=== PATIENT | male | born 1970 | race Caucasian/White ===

== ENCOUNTER 2016-08-16 07:52 | Emergency (ER) | payer MEDICAID ==
[2016-08-16] MEDS ORDERED: Aspirin 81 MG Tab.Chew PO ONE (08:13)
[2016-08-16] MEDS ORDERED: Metoclopramide 10 MG/2 ML SDV IVPUSH ONE (08:15)
[2016-08-16] MEDS ORDERED: Sodium Chloride 0.9% 1,000 ML IV SCH (08:15)
[2016-08-16] MEDS ORDERED: HYDROmorphone 0.5 MG/0.5 ML Syringe IVPUSH ONE (08:15)
--- NOTE | 2016-08-16 08:18 | EDM.PDOC ---
ED HPI GENERAL MEDICAL PROBLEM - General Chief Complaint: Cardiovascular Problem Stated Complaint: CHEST TIGHTNESS Time Seen by Provider: 08/16/16 08:02 Source of Information: Reports: Patient History Limitations: Reports: No Limitations - History of Present Illness INITIAL COMMENTS - FREE TEXT/NARRATIVE: 45-year-old male presents the ED with development of central chest discomfort almost mid sternum that does not radiate through to his back or into his neck. States he awoke around 0400 hours with mild discomfort in this area but was able to go back to sleep. Upon awakening about 0700 hours the pain had intensified significantly in this area. It has not let up over the last hour and a half. Feels mildly short of breath with this. Patient has a history of multiple bilateral pulmonary emboli and remains on Coumadin 5 mg 5 days a week and 2.5 mg the other days. He has not missed any of his Coumadin. 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 This was felt to be the cause of his PEs in the past. He has had a an angiogram about a year and half ago which showed one vessel with 45% occlusion he did not require any stenting. Does have gastroesophageal reflux disease well controlled with omeprazole once daily. No recent problems with severe reflux area . No associated feeling of need to burp or belch. Onset: Today Onset Date: 08/16/16 Onset Time: 04:00 Duration: Hour(s):, Getting Worse Location: Reports: Chest (Central chest midsternum pressure discomfort. No sharp and stabbing pain.) Quality: Reports: Ache, Pressure Severity: Moderate (Rates his pain 4-5/10.) Improves with: Reports: None Worsens with: Reports: None Context: Denies: Activity, Exercise, Lifting, Sick Contact, Trauma, Other ( First noted when he was sleeping.) Associated Symptoms: Reports: Chest Pain, Cough, Nausea/Vomiting. 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: Reports: Other (see below) (Is not taking any of his usual medications this morning.) Mid-Sternal Chest Pain Score (Numeric/FACES): 5 - Related Data Allergies Allergy/AdvReac Type Severity Reaction Status Date / Time No Known Allergies Allergy Verified 08/16/16 08:06 Home Meds: Home Meds Omeprazole [Prilosec] 20 mg PO DAILY 10/02/14 [History] Carvedilol 6.25 mg PO DAILY 08/16/16 [History] Dicyclomine [Bentyl] 20 mg PO Q6H PRN #12 tab 08/16/16 [Rx] Furosemide [Lasix] 20 mg PO DAILY 08/16/16 [History] Furosemide [Lasix] 40 mg PO DAILY #30 tablet 08/16/16 [Rx] Levothyroxine 25 mcg PO DAILY 08/16/16 [History] Lisinopril 10 mg PO DAILY 08/16/16 [History] Warfarin [Coumadin] 2.5 mg PO SUTUTHSA 08/16/16 [History] Warfarin [Coumadin] 5 mg PO MOWEFR 08/16/16 [History] Past Medical History Cardiovascular History: Reports: Blood Clots/VTE/DVT, Hypertension, [place] ( Suffered a myocardial infarction at the time of his massive pulmonary embolism nearly 2 years ago. Ejection fraction has remained around 40%. Last echo was 6 months ago. Angiogram was also done at that time revealing one vessel with 45% occlusion. No stents placed) Respiratory History: Reports: Other (See Below) (Bilateral pulmonary emboli in the past.) Gastrointestinal History: Reports: GERD, Hiatal Hernia Endocrine/Metabolic History: Reports: Hypothyroidism (On levothyroxin.) Other Endocrine/Metabolic History: pre diabetic Hematologic History: Reports: Other (See Below) (DVTs with pulmonary embolism about 15 months ago.) Social & Family History - Tobacco Use Smoking Status *Q: Never Smoker Second Hand Smoke Exposure: No - Recreational Drug Use Recreational Drug Use: No - Living Situation & Occupation Living situation: Reports: Occupation: Employed ED ROS GENERAL - Review of Systems Review Of Systems: See Below Constitutional: Denies: Fever, Chills, Malaise, Weakness, Fatigue, Decreased Appetite, Weight Loss HEENT: Reports: No Symptoms Respiratory: Reports: Shortness of Breath, Cough (Preps a slight feeling of shortness of breath). Denies: Wheezing, Pleuritic Chest Pain, Sputum ( chronic mild cough.), Hemoptysis, Other Cardiovascular: Reports: Chest Pain (See history of present illness), Blood Pressure Problem ( hypertension well controlled with medication) Endocrine: Reports: No Symptoms GI/Abdominal: Reports: No Symptoms. Denies: Abdominal Pain, Anorexia : Reports: No Symptoms Musculoskeletal: Reports: No Symptoms Skin: Reports: No Symptoms Neurological: Reports: No Symptoms Psychiatric: Reports: No Symptoms Hematologic/Lymphatic: Reports: No Symptoms Immunologic: Reports: No Symptoms ED EXAM, GENERAL - Physical Exam Exam: See Below Exam Limited By: No Limitations General Appearance: Alert, WD/WN, Anxious (Mildly anxious.), Mild Distress Eye Exam: Bilateral Eye: Normal Inspection Neck: Normal Inspection, Supple, Non-Tender, Full Range of Motion. No: Carotid Bruit, Lymphadenopathy (L), Lymphadenopathy (R) Respiratory/Chest: No Respiratory Distress, Lungs Clear, Normal Breath Sounds, No Accessory Muscle Use, Other (Mildly tender anterior chest bilaterally. Compressing the third and fourth ribs bilaterally causes pain in his midsternal area.). No: Respiratory Distress Cardiovascular: Normal Peripheral Pulses, Regular Rate, Rhythm, No Edema, No Gallop, No Murmur Peripheral Pulses: 1+: Posterior Tibial (L), Posterior Tibial (R), Dorsalis Pedis (L), Dorsalis Pedis (R) GI/Abdominal: Normal Bowel Sounds, Soft, Non-Tender, No Organomegaly, No Distention, No Abnormal Bruit, No Mass Back Exam: Normal Inspection, Full Range of Motion, Other (Has a 1.5 cm lipoma mid back primarily just to the right of the thoracic). No: CVA Tenderness (L), CVA Tenderness (R) Neurological: Alert, Oriented ( the vertebra.), CN II-XII Intact, Normal Cognition, Normal Gait Psychiatric: Normal Affect, Normal Mood Skin Exam: Warm, Dry, Intact, Normal Color, No Rash EKG INTERPRETATION EKG Date: 08/16/16 Time: 08:00 Rhythm: NSR Rate (beats/min): 70 [place]: normal P-wave: present QRS: other (Early R wave transition. Decreased voltage limb leads.) ST-T: other (Symmetrically peaked T waves in the 2 and V3.) QT: prolonged (Mildly prolonged.) EKG Interpretation Comments: Essentially normal ECG certainly no signs of ischemia evident. Course - Vital Signs Last Recorded V/S: Last Vital Signs Temp 36.7 C 08/16/16 07:55 Pulse 72 08/16/16 07:55 Resp 18 08/16/16 07:55 BP 169/109 H 08/16/16 07:55 Pulse Ox 100 08/16/16 07:55 - Orders/Labs/Meds Orders: Active Orders 24 hr Category Date Time Status EKG Documentation Completion [RC] STAT Care 08/16/16 08:13 Active Chest 1V Frontal [CR] Stat Exams 08/16/16 08:13 Taken Sodium Chloride 0.9% [Normal Saline] 1,000 ml Med 08/16/16 08:15 Active IV ASDIRECTED Medication Orders Sodium Chloride (Normal Saline) 1,000 mls @ 125 mls/hr IV ASDIRECTED MATT Last Admin: 08/16/16 08:00 Dose: 125 mls/hr Labs: Laboratory Tests 08/16/16 08/16/16 08/16/16 Range/Units 08:03 08:03 08:03 WBC 6.06 (4.23-9.07) K/mm3 RBC 5.12 (4.63-6.08) M/mm3 Hgb 10.1 L (13.7-17.5) gm/L Hct 34.9 L (40.1-51.0) % MCV 68.2 L (79.0-92.2) fl MCH 19.7 L (25.7-32.2) pg MCHC 28.9 L (32.2-35.5) g/dl RDW Std Deviation 44.0 H (35.1-43.9) fL Plt Count 375 H (163-337) K/mm3 MPV 10.7 (9.4-12.3) fl Neutrophils % (Manual) 54 (40-60) % Band Neutrophils % 0 (0-10) % Lymphocytes % (Manual) 25 (20-40) % Atypical Lymphs % 0 % Monocytes % (Manual) 8 (2-10) % Eosinophils % (Manual) 10 H (0.8-7.0) % Basophils % (Manual) 3 H (0.2-1.2) Platelet Estimate Adequate Hypochromasia 2+ moderate Poikilocytosis 2+ moderate RBC Morph Comment Not Reportable PT 14.4 H (8.0-13.0) SECONDS INR 1.30 D-Dimer, Quantitative (0.19-0.59) mg/L Sodium 144 (136-145) mEq/L Potassium 3.7 (3.5-5.1) mEq/L Chloride 108 H (98-107) mEq/L Carbon Dioxide 29 (21-32) mEq/L Anion Gap 10.7 (5-15) BUN 14 (7-18) mg/dL Creatinine 1.2 (0.7-1.3) mg/dL Est Cr Clr Drug Dosing 89.43 mL/min Estimated GFR (MDRD) > 60 (>60) mL/min BUN/Creatinine Ratio 11.7 L (14-18) Glucose 113 H (74-106) mg/dL Calcium 8.6 (8.5-10.1) mg/dL Magnesium (1.8-2.4) mg/dl Iron (65-175) ug/dL TIBC (100-400) ug/dL % Saturation (20-55) % Transferrin (202-364) mg/dL Total Bilirubin 0.4 (0.2-1.0) mg/dL AST 13 L (15-37) U/L ALT 21 (16-63) U/L Alkaline Phosphatase 70 (46-116) U/L Lactate Dehydrogenase 175 (85-227) U/L CK-MB (CK-2) < 0.5 (0-3.6) ng/ml Troponin I 0.041 (0.00-0.056) ng/mL C-Reactive Protein 1.2 H* (<1.0) mg/dL B-Natriuretic Peptide (0-100) pg/mL Total Protein 7.1 (6.4-8.2) g/dl Albumin 3.3 L (3.4-5.0) g/dl Globulin 3.8 gm/dL Albumin/Globulin Ratio 0.9 L (1-2) 08/16/16 08/16/16 08/16/16 Range/Units 08:03 08:03 08:03 WBC (4.23-9.07) K/mm3 RBC (4.63-6.08) M/mm3 Hgb (13.7-17.5) gm/L Hct (40.1-51.0) % MCV (79.0-92.2) fl MCH (25.7-32.2) pg MCHC (32.2-35.5) g/dl RDW Std Deviation (35.1-43.9) fL Plt Count (163-337) K/mm3 MPV (9.4-12.3) fl Neutrophils % (Manual) (40-60) % Band Neutrophils % (0-10) % Lymphocytes % (Manual) (20-40) % Atypical Lymphs % % Monocytes % (Manual) (2-10) % Eosinophils % (Manual) (0.8-7.0) % Basophils % (Manual) (0.2-1.2) Platelet Estimate Hypochromasia Poikilocytosis RBC Morph Comment PT (8.0-13.0) SECONDS INR D-Dimer, Quantitative < 0.19 L (0.19-0.59) mg/L Sodium (136-145) mEq/L Potassium (3.5-5.1) mEq/L Chloride (98-107) mEq/L Carbon Dioxide (21-32) mEq/L Anion Gap (5-15) BUN (7-18) mg/dL Creatinine (0.7-1.3) mg/dL Est Cr Clr Drug Dosing mL/min Estimated GFR (MDRD) (>60) mL/min BUN/Creatinine Ratio (14-18) Glucose (74-106) mg/dL Calcium (8.5-10.1) mg/dL Magnesium (1.8-2.4) mg/dl Iron 24 L (65-175) ug/dL TIBC 418 H (100-400) ug/dL % Saturation 6 L (20-55) % Transferrin 334 (202-364) mg/dL Total Bilirubin (0.2-1.0) mg/dL AST (15-37) U/L ALT (16-63) U/L Alkaline Phosphatase (46-116) U/L Lactate Dehydrogenase (85-227) U/L CK-MB (CK-2) (0-3.6) ng/ml Troponin I (0.00-0.056) ng/mL C-Reactive Protein (<1.0) mg/dL B-Natriuretic Peptide 354 H (0-100) pg/mL Total Protein (6.4-8.2) g/dl Albumin (3.4-5.0) g/dl Globulin gm/dL Albumin/Globulin Ratio (1-2) // Range/Units 08:03 WBC (4.23-9.07) K/mm3 RBC (4.63-6.08) M/mm3 Hgb (13.7-17.5) gm/L Hct (40.1-51.0) % MCV (79.0-92.2) fl MCH (25.7-32.2) pg MCHC (32.2-35.5) g/dl RDW Std Deviation (35.1-43.9) fL Plt Count (163-337) K/mm3 MPV (9.4-12.3) fl Neutrophils % (Manual) (40-60) % Band Neutrophils % (0-10) % Lymphocytes % (Manual) (20-40) % Atypical Lymphs % % Monocytes % (Manual) (2-10) % Eosinophils % (Manual) (0.8-7.0) % Basophils % (Manual) (0.2-1.2) Platelet Estimate Hypochromasia Poikilocytosis RBC Morph Comment PT (8.0-13.0) SECONDS INR D-Dimer, Quantitative (0.19-0.59) mg/L Sodium (136-145) mEq/L Potassium (3.5-5.1) mEq/L Chloride (98-107) mEq/L Carbon Dioxide (21-32) mEq/L Anion Gap (5-15) BUN (7-18) mg/dL Creatinine (0.7-1.3) mg/dL Est Cr Clr Drug Dosing mL/min Estimated GFR (MDRD) (>60) mL/min BUN/Creatinine Ratio (14-18) Glucose (74-106) mg/dL Calcium (8.5-10.1) mg/dL Magnesium 2.1 (1.8-2.4) mg/dl Iron (65-175) ug/dL TIBC (100-400) ug/dL % Saturation (20-55) % Transferrin (202-364) mg/dL Total Bilirubin (0.2-1.0) mg/dL AST (15-37) U/L ALT (16-63) U/L Alkaline Phosphatase (46-116) U/L Lactate Dehydrogenase (85-227) U/L CK-MB (CK-2) (0-3.6) ng/ml Troponin I (0.00-0.056) ng/mL C-Reactive Protein (<1.0) mg/dL B-Natriuretic Peptide (0-100) pg/mL Total Protein (6.4-8.2) g/dl Albumin (3.4-5.0) g/dl Globulin gm/dL Albumin/Globulin Ratio (1-2) Meds: Medications Generic Name Dose Route Start Last Admin Trade Name Denyq PRN Reason Stop Dose Admin Sodium Chloride 1,000 mls @ 125 mls/hr 08/16/16 08:15 08/16/16 08:00 Normal Saline IV 125 mls/hr ASDIRECTED MATT Administration Discontinued Medications Generic Name Dose Route Start Last Admin Trade Name Freq PRN Reason Stop Dose Admin Aspirin 324 mg 08/16/16 08:13 08/16/16 08:00 Aspirin PO 08/16/16 08:14 324 mg ONETIME ONE Administration Al Hydroxide/Mg Hydroxide 30 0 ml 08/16/16 10:22 08/16/16 10:29 ml/ Lidocaine HCl 15 ml PO 08/16/16 10:23 45 ml ONETIME ONE Administration Furosemide 40 mg 08/16/16 10:14 08/16/16 10:20 Lasix IVPUSH 08/16/16 10:15 40 mg NOW ONE Administration Hydromorphone HCl 0.5 mg 08/16/16 08:15 08/16/16 08:10 Dilaudid IVPUSH 08/16/16 08:16 0.5 mg ONETIME ONE Administration Metoclopramide HCl 10 mg 08/16/16 08:15 08/16/16 08:05 Reglan IVPUSH 08/16/16 08:16 10 mg ONETIME ONE Administration - Radiology Interpretation Free Text/Narrative:: 45-year-old male presents the ED with central chest discomfort. States he woke initially around 0400 hours this morning with central pressure discomfort he states was mild at that time and he was able to fall back asleep. By 0700 hours this morning he recognized the discomfort was much more intense and in the same place. He is not radiating to his back neck or shoulders. No history of myocardial infarction and he is anticoagulated chronically with Coumadin because of DVTs and pulmonary emboli diagnosed about 15 months ago. He has not missed his medication. Examination reveals clear lung perez without wheezes or rhonchi. He is a smoker. Heart sounds were normal. Some chest wall discomfort on palpation of the ribs adjacent to the sternum bilaterally. History of gastroesophageal reflux disease usually well controlled with omeprazole daily. ECG shows sinus rhythm at 70 per minute with no signs of ischemia. Plan IV normal saline 125 mils per hour. Given Dilaudid 0.5 mg IV with Reglan 10 mg IV. Chest pain discomfort and nausea relief. Labs to be collected including cardiac markers and d-dimer. One view chest x-ray to be obtained. - Re-Assessments/Exams Free Text/Narrative Re-Assessment/Exam: 08/16/16 08:54 chest x-ray reveals mildly hyperinflated lung perez. Visualized portion of the lungs appear clear. Cardiac silhouette is within normal limits. 08/16/16 09:51 labs reveal a total white count of 6.06 with 54% neutrophils and no bands hemoglobin is low at 10.1 hematocrit is low at 34.9. Note MCV is low at 68.2 suggesting iron deficiency anemia. Platelets are normal 375,000. PT was 14.4 INR subtherapeutic at 1.30 d-dimer was less than 0.19 sodium 144 potassium 3.7 glucose 113 LDH 175 troponin was 0.041 CRP was 1.2. I will go ahead and order his serum ferritin transferrin total iron binding capacity and iron levels. On chronic Coumadin therapy. With a BNP of 354 he should have an echocardiogram as part of his workup as there is no explanation for why he would be in mild failure. 08/16/16 10:17 At this time patient is having some epigastric pain suggestive of GI etiology to his central chest pain. Central chest pain is still there but better than it was. We'll give him a GI cocktail. In regards to his elevated BNP at 354 and we'll give him Lasix 40 mg IV and the plan would be to increase his Lasix from 20 once daily to 40 once daily. He recognizes echocardiogram has suggested his ejection fraction is 40% and has been since his [place] 2 years ago. Last echo was done about 6 months ago with an angiogram. He therefore needs followup and investigation as to his iron deficiency anemia. Primarily needs a upper and likely lower GI endoscopy. Since he was treated with the Coumadin for primary pulmonary embolism I will not increase the dosage of the Coumadin to therapeutic values until we clarify suspect blood loss from the GI tract . He reports his father had a pulmonary embolism. He is unclear whether any genetic studies were done for Factor 5 mutation, protein S ,protein C, antithrombin and Cardiolipin antibody tests where were carried out. These perhaps should be done once he is off Coumadin for a week. This would help us decide if he needs this medication long-term. He has no follow up her primary care physician. I will therefore try and set him up with Dr. Clarke at the [facility]. He will need to see Dr. Holt ideally for upper and lower GI endoscopy to identify potential source of blood loss as the etiology of his iron deficiency anemia. 08/16/16 10:26 appointment has been arranged with Dr. Clarke for August 18 at 8 AM. I have spoken with Dr. Clarke and explained the findings and the reason for the patient requiring followup. 08/16/16 11:16 total iron and iron binding capacity is elevated at 418% saturation 6% total iron is low at 24 transferrin is 334. This confirms iron deficiency anemia as the cause of his anemia. Therefore he does need investigation of his GI tract for potential blood loss. Departure - Departure Time of Disposition: 11:00 Disposition: Home, Self-Care 01 Condition: fair Clinical Impression: Non-cardiac chest pain CHF NYHA class III (symptoms with mildly strenuous activities) Qualifiers: Congestive heart failure type: diastolic Congestive heart failure chronicity: chronic Qualified Code(s): I50.32 - Chronic diastolic (congestive) heart failure Anemia Qualifiers: Anemia type: iron deficiency Prescriptions: Dicyclomine [Bentyl] 20 mg PO Q6H PRN #12 tab PRN Reason: Upper abdominal pain Furosemide [Lasix] 40 mg PO DAILY #30 tablet Instructions: Nonspecific Chest Pain, [id number] Referrals: PCP,Not In Area [Primary Care Provider] - Forms: Return to Work/School Form Additional Instructions: Evaluation through the emergency department today in regards to development of central chest pressure discomfort during the night and worsening as the day went on. Chest x-ray was normal ECG tracing was also normal. Lab work identified no evidence of heart related illness in terms that cardiac markers were normal. He did identify however there is increased fluid within the lungs i.e. mild congestive heart failure with a BNP of 354. You therefore require an increased dose of Lasix 40 mg once daily in the morning. Other findings were that of iron deficiency anemia. Hemoglobin is low at 10.2 which is stressing her heart a bit more in terms of its has to work harder. Because of the low hemoglobin is unclear but is suspect that you are bleeding from the GI tract either from a peptic ulcer or from within the colon that he would not be aware of. Therefore further investigations are required by way of upper GI and lower GI endoscopy to establish potential source of bleeding. At this time your Coumadin her INR was subtherapeutic at 1.30 but since you're not having any active problems at this time I would not increase the dosage. Decision will be made likely to go off of this medication for a period of time such as a week to 10 days and have lab work carried out to look for genetic markers for making you at higher risk of clotting and it was identified that he would go back on Coumadin for the rest of your life. Today I think the chest pain is is referred from the upper GI tract either esophageal spasm hiatal hernia related etc. Given a GI cocktail in the ED. May use Maalox or Mylanta if needed for similar type discomfort today and were Bentyl tablets 20 mg every 6 hours which relieves spasm of the food pipe and hiatal hernia type pain. To be used as needed. I have made a followup appointment for you to see Dr. Clarke on the second floor the hospital on the east side i.e. the family medicine unit on August 18 at 8:00 in the morning room #5. Prescriptions were written for increased dose of Lasix to 40 mg daily. He could use to 20s until you use them up. A Bentyl tablet 20 mg every 6 hours when necessary x10 tablets for upper abdominal pain relief. - My Orders Last 24 Hours: My Active Orders 08/16/16 08:13 EKG Documentation Completion [RC] STAT Chest 1V Frontal [CR] Stat 08/16/16 08:15 Sodium Chloride 0.9% [Normal Saline] 1,000 ml IV ASDIRECTED - Assessment/Plan Last 24 Hours: My Active Orders 08/16/16 08:13 EKG Documentation Completion [RC] STAT Chest 1V Frontal [CR] Stat 08/16/16 08:15 Sodium Chloride 0.9% [Normal Saline] 1,000 ml IV ASDIRECTED
[2016-08-16] MEDS ORDERED: Furosemide 40 MG/4 ML VIAL IVPUSH ONE (10:14)
[2016-08-16] MEDS ORDERED: Alum Hydrox/Mag Hydrox/Simeth 30 ML, Lidocaine 2% 15 ML PO ONE ×2 (10:22)
[2016-08-16 11:16] VITALS: BP 143/94
--- NOTE | 2016-08-17 11:31 | CR ---
Chest: Portable view of the chest was obtained. Comparison: No previous chest x-ray. Heart size is within normal limits for portable technique. Tortuous thoracic aorta is seen. Lungs are clear with no acute infiltrates. Bony structures are grossly intact. Impression: 1. No acute intrathoracic process is seen on portable chest x-ray. Diagnostic code #1
== END 2016-08-16 11:25 | disposition home or self-care (01) ==
LOC: JD.ED 07:52
DX: I11.0 Hypertensive heart disease with heart failure (principal); I50.32 Chronic diastolic (congestive) heart failure; D50.9 Iron deficiency anemia, unspecified; I25.2 Old myocardial infarction; K21.9 Gastro-esophageal reflux disease without esophagitis; E03.9 Hypothyroidism, unspecified; Z79.01 Long term (current) use of anticoagulants; Z79.899 Other long term (current) drug therapy
CPT/HCPCS: 36415; 71010; 80053; 82553; 83540; 83615; 83735; 83880; 84466; 84484; 85025; 85379; 85610; 86140; 93005; 96361; 96374; 96375; 99285; A9270; J1170; J1940; J2765; J7040

== ENCOUNTER 2016-08-22 20:46 | Inpatient (IN) | payer MEDICAID ==
[2016-08-22] MEDS ORDERED: Naloxone 2 MG/2 ML Syringe ONE (20:49)
[2016-08-22] MEDS ORDERED: Flumazenil 0.1 MG/ML 5 ML MDV ONE (20:54)
[2016-08-22] MEDS ORDERED: Flumazenil 0.1 MG/ML 5 ML MDV IVPUSH ONE (21:03)
[2016-08-22] MEDS ORDERED: Naloxone 2 MG/2 ML Syringe IVPUSH ONE (21:03)
[2016-08-22] MEDS ORDERED: Lactated Ringers 1,000 ML IV ONE (21:14)
[2016-08-22] MEDS ORDERED: Ondansetron 4 MG/2 ML SDV IVPUSH ONE (21:14)
[2016-08-22 21:46] LABS: ACETAMINOPHEN 0 ug/mL (10-30)
--- NOTE | 2016-08-22 22:49 | EDM.PDOC ---
ED HPI GENERAL MEDICAL PROBLEM - General Chief Complaint: Neurological Problem Stated Complaint: [facility] Time Seen by Provider: 08/22/16 20:48 - History of Present Illness INITIAL COMMENTS - FREE TEXT/NARRATIVE: 45-year-old male brought into the emergency room by EMS who was found unresponsive in his hotel room. Patient was brought in smelling of alcohol with a bottle of rum that was nearly fully consumed by his side. The patient is arousable to pain initially. He did answer a few questions for EMS but then again became more sedated he did tell them he did wish to harm himself. Upon arrival here the patient is minimally responsive however he did wake up to some degree to answer questions and follow commands he was given Narcan and Romazicon it is unclear if they were of any benefit. After the patient awoke he did state he had strong suicidal thoughts. He's been under a lot of family stressors but would not go into this. The patient is stressed about his health he's had a remote heart attack and now is having heart failure he was seen in this emergency room about a week ago and had his Lasix increased to 2 pills a day this is helping with his reading and has puffiness however even though he takes his Lasix in the morning it seems like he is up every hour voiding. He really wants to get a good nights sleep. He's had problems with alcoholism in the past and he thinks he's been drunk for the last week. He has had problems with DTs in the past. 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 - Related Data Allergies Allergy/AdvReac Type Severity Reaction Status Date / Time No Known Allergies Allergy Unverified 08/22/16 21:10 Home Meds: Home Meds Omeprazole [Prilosec] 20 mg PO DAILY 10/02/14 [History] Carvedilol 6.25 mg PO DAILY 08/16/16 [History] Furosemide [Lasix] 20 mg PO DAILY 08/16/16 [History] Levothyroxine 25 mcg PO DAILY 08/16/16 [History] Lisinopril 10 mg PO DAILY 08/16/16 [History] Warfarin [Coumadin] 2.5 mg PO SUTUTHSA 08/16/16 [History] Warfarin [Coumadin] 5 mg PO MOWEFR 08/16/16 [History] Past Medical History HEENT History: Reports: Impaired Vision Other HEENT History: wear eyeglasses Cardiovascular History: Reports: Blood Clots/VTE/DVT, Hypertension, PA Other Cardiovascular History: cardiomegally. Respiratory History: Reports: Other (See Below) Gastrointestinal History: Reports: GERD, Hiatal Hernia Genitourinary History: Reports: Renal Disease Musculoskeletal History: Reports: Fracture, Other (See Below) Other Musculoskeletal History: -1988, shoulder surgery Neurological History: Reports: Concussion Other Neuro History: Winter 2013 Psychiatric History: Reports: Addiction Other Psychiatric History: recovering alcoholic Endocrine/Metabolic History: Reports: Hypothyroidism Other Endocrine/Metabolic History: pre diabetic Hematologic History: Reports: Other (See Below) Other Hematologic History: plasma transfusions prior to GB surgery as was on Coumadin at that time. - Infectious Disease History Infectious Disease History: Reports: Shingles - Past Surgical History HEENT Surgical History: Reports: Tonsillectomy Social & Family History - Tobacco Use Smoking Status *Q: Never Smoker Years of Tobacco use: 20 Packs/Tins Daily: 1 Used Tobacco, but Quit: Yes Month Tobacco Last Used: Mar 2002 Second Hand Smoke Exposure: No - Caffeine Use Caffeine Use: Reports: Coffee, Soda - Recreational Drug Use Recreational Drug Use: No Drug Use in Last 12 Months: Yes Recreational Drug Type: Reports: Marijuana/Hashish, Methamphetamine - Living Situation & Occupation Living situation: Reports: Occupation: Employed [employer] [facility] - Review of Systems Review Of Systems: See Below Constitutional: Reports: No Symptoms HEENT: Reports: No Symptoms Respiratory: Reports: No Symptoms Cardiovascular: Reports: No Symptoms Endocrine: Reports: No Symptoms GI/Abdominal: Reports: No Symptoms : Reports: Frequency Musculoskeletal: Reports: No Symptoms Skin: Reports: No Symptoms Neurological: Reports: No Symptoms Psychiatric: Reports: Depression, Homicidal Ideation, Suicidal Ideation - Physical Exam Exam: See Below Exam Limited By: No Limitations General Appearance: Other (Initially the patient was quite lethargic however he quickly did wake up) Eye Exam: Bilateral Eye: EOMI, Normal Inspection, PERRL Ears: Normal External Exam, Normal Canal, Hearing Grossly Normal, Normal TMs Nose: Normal Inspection, Normal Mucosa, No Blood Throat/Mouth: Normal Inspection, Normal Lips, Normal Oropharynx, No Airway Compromise Head Exam: Atraumatic, Normocephalic Neck: Normal Inspection, Supple, Non-Tender, Full Range of Motion. No: Lymphadenopathy (L), Lymphadenopathy (R) Respiratory/Chest: No Respiratory Distress, Lungs Clear, Normal Breath Sounds Cardiovascular: Normal Peripheral Pulses, Regular Rate, Rhythm, No Edema GI/Abdominal: Normal Bowel Sounds, Soft, Non-Tender Neuro Exam (Abbreviated): Alert, Oriented, CN II-XII Intact, Normal Cognition, No Motor/Sensory Deficits Back Exam: Normal Inspection. No: CVA Tenderness (L), CVA Tenderness (R), Vertebral Tenderness Extremities: Normal Inspection Psychiatric: Other (Mildly agitated) Course - Vital Signs Last Recorded V/S: Last Vital Signs Temp 36.7 C 08/22/16 20:54 Pulse 96 08/22/16 20:54 Resp BP 130/74 08/22/16 20:54 Pulse Ox 98 08/22/16 20:54 - Orders/Labs/Meds Orders: Active Orders 24 hr Category Date Time Status EKG 12 Lead [EKG Documentation Completion] [RC] STAT Care 08/22/16 21:26 Active Chest 1V Frontal [CR] Stat Exams 08/22/16 21:16 Taken Head wo Cont [CT] Stat Exams 08/22/16 21:05 Taken Lactated Ringers [Ringers, Lactated] 1,000 ml Med 08/22/16 21:14 Active IV ONETIME Medication Orders Chlordiazepoxide HCl (Librium) 25 mg PO QID MATT Haloperidol Lactate (Haldol) 2 mg IVPUSH Q8H PRN PRN Reason: Agitation Lactated Ringer's (Ringers, Lactated) 1,000 mls @ 125 mls/hr IV ONETIME ONE Stop: 08/23/16 05:13 Last Admin: 08/22/16 21:17 Dose: 125 mls/hr Lorazepam (Ativan) 2 mg IVPUSH Q2H PRN PRN Reason: Anxiety Temazepam (Restoril) 30 mg PO BEDTIME PRN PRN Reason: Insomnia Labs: Laboratory Tests 08/22/16 08/22/16 08/22/16 Range/Units 20:52 20:52 20:52 WBC 6.21 (4.23-9.07) K/mm3 RBC 5.00 (4.63-6.08) M/mm3 Hgb 10.1 L (13.7-17.5) gm/L Hct 34.4 L (40.1-51.0) % MCV 68.8 L (79.0-92.2) fl MCH 20.2 L (25.7-32.2) pg MCHC 29.4 L (32.2-35.5) g/dl RDW Std Deviation 44.3 H (35.1-43.9) fL Plt Count 383 H (163-337) K/mm3 MPV 10.5 (9.4-12.3) fl Neutrophils % (Manual) 36 L (40-60) % Band Neutrophils % 1 (0-10) % Lymphocytes % (Manual) 51 H (20-40) % Atypical Lymphs % 0 % Monocytes % (Manual) 8 (2-10) % Eosinophils % (Manual) 3 (0.8-7.0) % Basophils % (Manual) 1 (0.2-1.2) Platelet Estimate Adequate Polychromasia 1+ slight Hypochromasia 2+ moderate Anisocytosis 1+ slight Microcytosis 1+ slight RBC Morph Comment Not Reportable PT 11.0 (8.0-13.0) SECONDS INR 1.01 APTT 23 (22-36) SECONDS Puncture Site ABG pH (7.35-7.45) ABG pCO2 (35.0-45.0) mmHg ABG pO2 (80.0-100.0) mmHg ABG HCO3 (22.0-26.0) meq/L ABG O2 Saturation (96.0-97.0) % ABG Base Excess (-2-2.0) A-a Gradient mmHg O2 Delivery Device FiO2 (21.00-100.00) % Sodium 145 (136-145) mEq/L Potassium 3.9 (3.5-5.1) mEq/L Chloride 109 H (98-107) mEq/L Carbon Dioxide 25 (21-32) mEq/L Anion Gap 14.9 (5-15) BUN 12 (7-18) mg/dL Creatinine 1.1 (0.7-1.3) mg/dL Est Cr Clr Drug Dosing TNP Estimated GFR (MDRD) > 60 (>60) mL/min BUN/Creatinine Ratio 10.9 L (14-18) Glucose 124 H (74-106) mg/dL Lactic Acid (0.4-2.0) mmol/L Calcium 7.9 L (8.5-10.1) mg/dL Total Bilirubin 0.3 (0.2-1.0) mg/dL AST 12 L (15-37) U/L ALT 25 (16-63) U/L Alkaline Phosphatase 84 (46-116) U/L Troponin I (0.00-0.056) ng/mL B-Natriuretic Peptide (0-100) pg/mL Total Protein 7.0 (6.4-8.2) g/dl Albumin 3.2 L (3.4-5.0) g/dl Globulin 3.8 gm/dL Albumin/Globulin Ratio 0.8 L (1-2) TSH 3rd Generation (0.358-3.74) uIU/mL Urine Color (Yellow) Urine Appearance (Clear) Urine pH (5.0-8.0) Ur Specific [place] (1.005-1.030) Urine Protein (Negative) Urine Glucose (UA) (Negative) Urine Ketones (Negative) Urine Occult Blood (Negative) Urine Nitrite (Negative) Urine Bilirubin (Negative) Urine Urobilinogen (0.2-1.0) Ur Leukocyte Esterase (Negative) Salicylates (2.8-20) mg/dL Urine Opiates Screen (NEGATIVE) Ur Buprenorphine Scrn (NEGATIVE) Ur Oxycodone Screen (NEGATIVE) Urine Methadone Screen (NEGATIVE) Ur Propoxyphene Screen (NEGATIVE) Acetaminophen 0 L (10-30) ug/mL Ur Barbiturates Screen (NEGATIVE) Ur Tricyclics Screen (NEGATIVE) Ur Phencyclidine Scrn (NEGATIVE) Ur Amphetamine Screen (NEGATIVE) U Methamphetamines Scrn (NEGATIVE) U Benzodiazepines Scrn (NEGATIVE) U Cocaine Metab Screen (NEGATIVE) U Marijuana (THC) Screen (NEGATIVE) Ethyl Alcohol 0.26 (0.00) gm% 08/22/16 08/22/16 08/22/16 Range/Units 20:52 20:52 20:52 WBC (4.23-9.07) K/mm3 RBC (4.63-6.08) M/mm3 Hgb (13.7-17.5) gm/L Hct (40.1-51.0) % MCV (79.0-92.2) fl MCH (25.7-32.2) pg MCHC (32.2-35.5) g/dl RDW Std Deviation (35.1-43.9) fL Plt Count (163-337) K/mm3 MPV (9.4-12.3) fl Neutrophils % (Manual) (40-60) % Band Neutrophils % (0-10) % Lymphocytes % (Manual) (20-40) % Atypical Lymphs % % Monocytes % (Manual) (2-10) % Eosinophils % (Manual) (0.8-7.0) % Basophils % (Manual) (0.2-1.2) Platelet Estimate Polychromasia Hypochromasia Anisocytosis Microcytosis RBC Morph Comment PT (8.0-13.0) SECONDS INR APTT (22-36) SECONDS Puncture Site ABG pH (7.35-7.45) ABG pCO2 (35.0-45.0) mmHg ABG pO2 (80.0-100.0) mmHg ABG HCO3 (22.0-26.0) meq/L ABG O2 Saturation (96.0-97.0) % ABG Base Excess (-2-2.0) A-a Gradient mmHg O2 Delivery Device FiO2 (21.00-100.00) % Sodium (136-145) mEq/L Potassium (3.5-5.1) mEq/L Chloride (98-107) mEq/L Carbon Dioxide (21-32) mEq/L Anion Gap (5-15) BUN (7-18) mg/dL Creatinine (0.7-1.3) mg/dL Est Cr Clr Drug Dosing Estimated GFR (MDRD) (>60) mL/min BUN/Creatinine Ratio (14-18) Glucose (74-106) mg/dL Lactic Acid (0.4-2.0) mmol/L Calcium (8.5-10.1) mg/dL Total Bilirubin (0.2-1.0) mg/dL AST (15-37) U/L ALT (16-63) U/L Alkaline Phosphatase (46-116) U/L Troponin I < 0.017 (0.00-0.056) ng/mL B-Natriuretic Peptide (0-100) pg/mL Total Protein (6.4-8.2) g/dl Albumin (3.4-5.0) g/dl Globulin gm/dL Albumin/Globulin Ratio (1-2) TSH 3rd Generation (0.358-3.74) uIU/mL Urine Color Yellow (Yellow) Urine Appearance Clear (Clear) Urine pH 6.0 (5.0-8.0) Ur Specific [place] 1.015 (1.005-1.030) Urine Protein Negative (Negative) Urine Glucose (UA) Negative (Negative) Urine Ketones Negative (Negative) Urine Occult Blood Negative (Negative) Urine Nitrite Negative (Negative) Urine Bilirubin Negative (Negative) Urine Urobilinogen 0.2 (0.2-1.0) Ur Leukocyte Esterase Negative (Negative) Salicylates 0.7 L (2.8-20) mg/dL Urine Opiates Screen (NEGATIVE) Ur Buprenorphine Scrn (NEGATIVE) Ur Oxycodone Screen (NEGATIVE) Urine Methadone Screen (NEGATIVE) Ur Propoxyphene Screen (NEGATIVE) Acetaminophen (10-30) ug/mL Ur Barbiturates Screen (NEGATIVE) Ur Tricyclics Screen (NEGATIVE) Ur Phencyclidine Scrn (NEGATIVE) Ur Amphetamine Screen (NEGATIVE) U Methamphetamines Scrn (NEGATIVE) U Benzodiazepines Scrn (NEGATIVE) U Cocaine Metab Screen (NEGATIVE) U Marijuana (THC) Screen (NEGATIVE) Ethyl Alcohol (0.00) gm% 08/22/16 08/22/16 08/22/16 Range/Units 20:52 20:52 21:02 WBC (4.23-9.07) K/mm3 RBC (4.63-6.08) M/mm3 Hgb (13.7-17.5) gm/L Hct (40.1-51.0) % MCV (79.0-92.2) fl MCH (25.7-32.2) pg MCHC (32.2-35.5) g/dl RDW Std Deviation (35.1-43.9) fL Plt Count (163-337) K/mm3 MPV (9.4-12.3) fl Neutrophils % (Manual) (40-60) % Band Neutrophils % (0-10) % Lymphocytes % (Manual) (20-40) % Atypical Lymphs % % Monocytes % (Manual) (2-10) % Eosinophils % (Manual) (0.8-7.0) % Basophils % (Manual) (0.2-1.2) Platelet Estimate Polychromasia Hypochromasia Anisocytosis Microcytosis RBC Morph Comment PT (8.0-13.0) SECONDS INR APTT (22-36) SECONDS Puncture Site ABG pH (7.35-7.45) ABG pCO2 (35.0-45.0) mmHg ABG pO2 (80.0-100.0) mmHg ABG HCO3 (22.0-26.0) meq/L ABG O2 Saturation (96.0-97.0) % ABG Base Excess (-2-2.0) A-a Gradient mmHg O2 Delivery Device FiO2 (21.00-100.00) % Sodium (136-145) mEq/L Potassium (3.5-5.1) mEq/L Chloride (98-107) mEq/L Carbon Dioxide (21-32) mEq/L Anion Gap (5-15) BUN (7-18) mg/dL Creatinine (0.7-1.3) mg/dL Est Cr Clr Drug Dosing Estimated GFR (MDRD) (>60) mL/min BUN/Creatinine Ratio (14-18) Glucose (74-106) mg/dL Lactic Acid (0.4-2.0) mmol/L Calcium (8.5-10.1) mg/dL Total Bilirubin (0.2-1.0) mg/dL AST (15-37) U/L ALT (16-63) U/L Alkaline Phosphatase (46-116) U/L Troponin I (0.00-0.056) ng/mL B-Natriuretic Peptide 171 H (0-100) pg/mL Total Protein (6.4-8.2) g/dl Albumin (3.4-5.0) g/dl Globulin gm/dL Albumin/Globulin Ratio (1-2) TSH 3rd Generation 1.657 (0.358-3.74) uIU/mL Urine Color (Yellow) Urine Appearance (Clear) Urine pH (5.0-8.0) Ur Specific [place] (1.005-1.030) Urine Protein (Negative) Urine Glucose (UA) (Negative) Urine Ketones (Negative) Urine Occult Blood (Negative) Urine Nitrite (Negative) Urine Bilirubin (Negative) Urine Urobilinogen (0.2-1.0) Ur Leukocyte Esterase (Negative) Salicylates (2.8-20) mg/dL Urine Opiates Screen Negative (NEGATIVE) Ur Buprenorphine Scrn Negative (NEGATIVE) Ur Oxycodone Screen Negative (NEGATIVE) Urine Methadone Screen Negative (NEGATIVE) Ur Propoxyphene Screen Negative (NEGATIVE) Acetaminophen (10-30) ug/mL Ur Barbiturates Screen Negative (NEGATIVE) Ur Tricyclics Screen Negative (NEGATIVE) Ur Phencyclidine Scrn Negative (NEGATIVE) Ur Amphetamine Screen Negative (NEGATIVE) U Methamphetamines Scrn Negative (NEGATIVE) U Benzodiazepines Scrn Negative (NEGATIVE) U Cocaine Metab Screen Negative (NEGATIVE) U Marijuana (THC) Screen Negative (NEGATIVE) Ethyl Alcohol (0.00) gm% 08/22/16 08/22/16 Range/Units 21:09 21:40 WBC (4.23-9.07) K/mm3 RBC (4.63-6.08) M/mm3 Hgb (13.7-17.5) gm/L Hct (40.1-51.0) % MCV (79.0-92.2) fl MCH (25.7-32.2) pg MCHC (32.2-35.5) g/dl RDW Std Deviation (35.1-43.9) fL Plt Count (163-337) K/mm3 MPV (9.4-12.3) fl Neutrophils % (Manual) (40-60) % Band Neutrophils % (0-10) % Lymphocytes % (Manual) (20-40) % Atypical Lymphs % % Monocytes % (Manual) (2-10) % Eosinophils % (Manual) (0.8-7.0) % Basophils % (Manual) (0.2-1.2) Platelet Estimate Polychromasia Hypochromasia Anisocytosis Microcytosis RBC Morph Comment PT (8.0-13.0) SECONDS INR APTT (22-36) SECONDS Puncture Site Rt radial ABG pH 7.48 H (7.35-7.45) ABG pCO2 30.7 L (35.0-45.0) mmHg ABG pO2 88.0 (80.0-100.0) mmHg ABG HCO3 22.8 (22.0-26.0) meq/L ABG O2 Saturation 98.4 H (96.0-97.0) % ABG Base Excess 0.2 (-2-2.0) A-a Gradient 8 mmHg O2 Delivery Device Room air FiO2 21.00 (21.00-100.00) % Sodium (136-145) mEq/L Potassium (3.5-5.1) mEq/L Chloride (98-107) mEq/L Carbon Dioxide (21-32) mEq/L Anion Gap (5-15) BUN (7-18) mg/dL Creatinine (0.7-1.3) mg/dL Est Cr Clr Drug Dosing Estimated GFR (MDRD) (>60) mL/min BUN/Creatinine Ratio (14-18) Glucose (74-106) mg/dL Lactic Acid 2.7 H (0.4-2.0) mmol/L Calcium (8.5-10.1) mg/dL Total Bilirubin (0.2-1.0) mg/dL AST (15-37) U/L ALT (16-63) U/L Alkaline Phosphatase (46-116) U/L Troponin I (0.00-0.056) ng/mL B-Natriuretic Peptide (0-100) pg/mL Total Protein (6.4-8.2) g/dl Albumin (3.4-5.0) g/dl Globulin gm/dL Albumin/Globulin Ratio (1-2) TSH 3rd Generation (0.358-3.74) uIU/mL Urine Color (Yellow) Urine Appearance (Clear) Urine pH (5.0-8.0) Ur Specific [place] (1.005-1.030) Urine Protein (Negative) Urine Glucose (UA) (Negative) Urine Ketones (Negative) Urine Occult Blood (Negative) Urine Nitrite (Negative) Urine Bilirubin (Negative) Urine Urobilinogen (0.2-1.0) Ur Leukocyte Esterase (Negative) Salicylates (2.8-20) mg/dL Urine Opiates Screen (NEGATIVE) Ur Buprenorphine Scrn (NEGATIVE) Ur Oxycodone Screen (NEGATIVE) Urine Methadone Screen (NEGATIVE) Ur Propoxyphene Screen (NEGATIVE) Acetaminophen (10-30) ug/mL Ur Barbiturates Screen (NEGATIVE) Ur Tricyclics Screen (NEGATIVE) Ur Phencyclidine Scrn (NEGATIVE) Ur Amphetamine Screen (NEGATIVE) U Methamphetamines Scrn (NEGATIVE) U Benzodiazepines Scrn (NEGATIVE) U Cocaine Metab Screen (NEGATIVE) U Marijuana (THC) Screen (NEGATIVE) Ethyl Alcohol (0.00) gm% Meds: Medications Generic Name Dose Route Start Last Admin Trade Name Freq PRN Reason Stop Dose Admin Chlordiazepoxide HCl 25 mg 08/23/16 09:00 Librium PO QID MATT Haloperidol Lactate 2 mg 08/23/16 01:00 Haldol IVPUSH Q8H PRN Agitation Lactated Ringer's 1,000 mls @ 125 mls/hr 08/22/16 21:14 08/22/16 21:17 Ringers, Lactated IV 08/23/16 05:13 125 mls/hr ONETIME ONE Administration Lorazepam 2 mg 08/23/16 01:00 Ativan IVPUSH Q2H PRN Anxiety Temazepam 30 mg 08/23/16 01:26 Restoril PO BEDTIME PRN Insomnia Discontinued Medications Generic Name Dose Route Start Last Admin Trade Name Freq PRN Reason Stop Dose Admin Flumazenil Confirm 08/22/16 20:54 Romazicon Administered 08/22/16 20:55 Dose 0.5 mg .ROUTE .STK-MED ONE Flumazenil 0.1 mg 08/22/16 21:03 08/22/16 21:32 Romazicon IVPUSH 08/22/16 21:04 0.1 mg ONETIME ONE Administration Lorazepam Confirm 08/23/16 00:03 Ativan Administered 08/23/16 00:04 Dose 2 mg .ROUTE .STK-MED ONE Naloxone HCl Confirm 08/22/16 20:49 Narcan Administered 08/22/16 20:50 Dose 2 mg .ROUTE .STK-MED ONE Naloxone HCl 1 mg 08/22/16 21:03 08/22/16 21:19 Narcan IVPUSH 08/22/16 21:04 1 mg ONETIME ONE Administration Naloxone HCl 1 mg 08/22/16 21:05 08/22/16 21:19 Narcan IVPUSH 08/22/16 21:06 1 mg ONETIME ONE Administration Ondansetron HCl 4 mg 08/22/16 21:14 08/22/16 21:17 Zofran IVPUSH 08/22/16 21:15 4 mg ONETIME ONE Administration - Re-Assessments/Exams Free Text/Narrative Re-Assessment/Exam: 08/22/16 22:49 Upon arrival to emergency room the patient was quite sedated was arousable only to pain however he quickly did waken up to the point reached answer questions. After he been here for a while he was fully conversant was answering questions appropriately admitting to having suicidal thoughts and wishes he was somewhat tearful at times would not disclose a lot of his stressors. Head CT unremarkable his blood alcohol is elevated tox screen negative Case discussed with Dr. Arceo patient will be placed in the ICU. Departure - Departure Time of Disposition: 22:45 Disposition: Admitted As Inpatient 65 Clinical Impression: Alcohol intoxication, Suicidal intent - Discharge Information - My Orders Last 24 Hours: My Active Orders 08/22/16 21:05 Head wo Cont [CT] Stat 08/22/16 21:14 Lactated Ringers [Ringers, Lactated] 1,000 ml IV ONETIME 08/22/16 21:16 Chest 1V Frontal [CR] Stat 08/22/16 21:26 EKG 12 Lead [EKG Documentation Completion] [RC] STAT - Assessment/Plan Last 24 Hours: My Active Orders 08/22/16 21:05 Head wo Cont [CT] Stat 08/22/16 21:14 Lactated Ringers [Ringers, Lactated] 1,000 ml IV ONETIME 08/22/16 21:16 Chest 1V Frontal [CR] Stat 08/22/16 21:26 EKG 12 Lead [EKG Documentation Completion] [RC] STAT
[2016-08-23] MEDS ORDERED: LORazepam 2 MG/ML MDV ONE (00:03)
[2016-08-23] MEDS ORDERED: LORazepam 2 MG/ML MDV IVPUSH PRN (01:00)
[2016-08-23] MEDS ORDERED: Haloperidol Lactate 5 MG/ML SDV IVPUSH PRN (01:00)
[2016-08-23] MEDS ORDERED: Temazepam 30 MG Cap PO PRN (01:26)
[2016-08-23] MEDS ORDERED: chlordiazePOXIDE 25 MG Cap PO ONE (01:40)
[2016-08-23] MEDS ORDERED: Metoprolol Tartrate 5 MG/5 ML SDV IVPUSH PRN (02:04)
--- NOTE | 2016-08-23 07:07 | CR ---
Chest: Portable view of the chest was obtained. Comparison: Previous chest x-ray of 08/16/16. Previous resection of the distal right clavicle is seen. Moderately large hiatal hernia is present. Heart size is within normal limits for portable technique. Mild tortuosity of the thoracic aorta is seen. Lungs are clear with no acute infiltrates. Impression: 1. Incidental findings. Nothing acute is identified on frontal chest x-ray. Diagnostic code #2
--- NOTE | 2016-08-23 07:24 | CT ---
Head CT Technique: Multiple axial sections through the brain were obtained. Intravenous contrast was not utilized. Comparison: No previous intracranial imaging. Findings: Ventricles along with basal cisterns and sulci over the convexities are within normal limits for the patient's age. No abnormal parenchymal densities are seen. No evidence of intracranial hemorrhage. No midline shift or mass effect is seen. Retention cyst is noted within the left maxillary sinus measuring 2.4 cm. Minimal mucosal thickening is incidentally noted within the ethmoid sinuses. Other visualized sinuses are clear. No discrete calvarial abnormality is seen. Impression: 1. Retention cyst within the left maxillary sinus felt to be incidental. 2. Nothing acute is identified on noncontrast CT study of the brain. Diagnostic code #2 I agree with preliminary report issued by [facility] ([facility] preliminary report dictated on 08/22/16, 10:33 PM Central Time)
[2016-08-23] MEDS: cloNIDine 0.1 MG Tab PO SCH ×2 (08:48→17:41)
[2016-08-23] MEDS: chlordiazePOXIDE 25 MG Cap PO SCH ×4 (08:48→20:21)
[2016-08-23] MEDS ORDERED: Metoprolol Tartrate 25 MG Tab PO SCH (09:00)
--- NOTE | 2016-08-23 10:51 | PCM.HP ---
H&P History of Present Illness - General Date of Service: 08/22/16 Source of Information: Patient, Provider History Limitations: Reports: No Limitations - History of Present Illness Initial Comments - Free Text/Narative: 89 year old male presented as a medical, LOC had been found unresponsive in hotel room. Was responsive to pain initially on site, had told the EMS service that he wanted to harm himself. Had a documented SHELLI 0.26; drug screen was unremarkable. Was seen about a week ago, and at that time taken off of his coumadin due to probable GI blood loss. He was to have had a GI work up by Dr Clarke as an outpatient arranged by the ED department. He had been treated as an inpatient by a [facility] program for alcohol dependent /abuser recently and was apparently sober for 8 weeks. 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 His most recent girlfriend is still and also had an without considering his wishes. When interviewed by the hospitalist service, the patient denied wanting to hurt himself. However he had earlier admitted it to EMS as previously stated. He agreeable to inpatient treatment, and will be admitted to the ICU. Onset of Symptoms: Reports: Gradual Duration of Symptoms: Reports: Week(s):, Getting Worse Location: Reports: Generalized Quality: Reports: Same as Previous Episode Severity: Moderate Improves with: Reports: Medication, Other (abstinence) Context: Reports: Other (alcohol and drugs) - Related Data Allergies/Adverse Reactions: Allergies Allergy/AdvReac Type Severity Reaction Status Date / Time No Known Allergies Allergy Unverified 08/22/16 21:10 Home Medications: Home Meds Omeprazole [Prilosec] 20 mg PO DAILY 10/02/14 [History] Carvedilol 6.25 mg PO DAILY 08/16/16 [History] Furosemide [Lasix] 20 mg PO DAILY 08/16/16 [History] Levothyroxine 25 mcg PO DAILY 08/16/16 [History] Lisinopril 10 mg PO DAILY 08/16/16 [History] Warfarin [Coumadin] 2.5 mg PO SUTUTHSA 08/16/16 [History] Warfarin [Coumadin] 5 mg PO MOWEFR 08/16/16 [History] Past Medical History HEENT History: Reports: Impaired Vision Other HEENT History: wear eyeglasses Cardiovascular History: Reports: Blood Clots/VTE/DVT, Hypertension, SC Other Cardiovascular History: cardiomegally. Respiratory History: Reports: Other (See Below) Gastrointestinal History: Reports: GERD, Hiatal Hernia Genitourinary History: Reports: Renal Disease Musculoskeletal History: Reports: Fracture, Other (See Below) Other Musculoskeletal History: -1988, shoulder surgery Neurological History: Reports: Concussion Other Neuro History: Winter 2013 Psychiatric History: Reports: Addiction Other Psychiatric History: recovering alcoholic Endocrine/Metabolic History: Reports: Hypothyroidism Other Endocrine/Metabolic History: pre diabetic Hematologic History: Reports: Other (See Below) Other Hematologic History: plasma transfusions prior to GB surgery as was on Coumadin at that time. - Infectious Disease History Infectious Disease History: Reports: Shingles - Past Surgical History HEENT Surgical History: Reports: Tonsillectomy Social & Family History - Tobacco Use Smoking Status *Q: Never Smoker Years of Tobacco use: 20 Packs/Tins Daily: 1 Used Tobacco, but Quit: Yes Month Tobacco Last Used: Mar 2002 Second Hand Smoke Exposure: No - Caffeine Use Caffeine Use: Reports: Coffee, Soda - Alcohol Use Days Per Week of Alcohol Use: 7 Number of Drinks Per Day: 8 Total Drinks Per Week: 56 Date of Last Drink: 08/22/16 - Recreational Drug Use Recreational Drug Use: No Drug Use in Last 12 Months: Yes Recreational Drug Type: Reports: Marijuana/Hashish, Methamphetamine Recreational Drug Use Frequency: Not Used In Over 2 Months - Living Situation & Occupation Living situation: Reports: Occupation: Employed H&P Review of Systems - Review of Systems: Review Of Systems: See Below General: Reports: No Symptoms HEENT: Reports: No Symptoms Pulmonary: Reports: No Symptoms Cardiovascular: Reports: No Symptoms Gastrointestinal: Reports: No Symptoms Genitourinary: Reports: No Symptoms Musculoskeletal: Reports: No Symptoms Skin: Reports: No Symptoms Psychiatric: Reports: Confusion, Depression, Anxiety, Agitation Neurological: Reports: No Symptoms Hematologic/Lymphatic: Reports: No Symptoms Immunologic: Reports: No Symptoms Exam - Exam Exam: See Below - Vital Signs Vital Signs: Last Vital Signs Temp 36.9 C 08/23/16 08:00 Pulse 86 08/23/16 08:49 Resp 16 08/23/16 08:00 BP 155/85 H 08/23/16 08:49 Pulse Ox 100 08/23/16 08:00 Weight: 117.571 kg - Exam Quality Assessment: Supplemental Oxygen, DVT Prophylaxis General: Alert, Oriented, Cooperative HEENT: Nares Patent, Normal Nasal Septum, Pupils Equal, Pupils Reactive, PERRLA Neck: Supple, Trachea Midline Lungs: Normal Respiratory Effort Cardiovascular: Regular Rate, Tachycardia Abdomen: Normal Bowel Sounds, Soft (Male) Exam: Deferred Rectal (Males) Exam: Deferred Back Exam: Normal Inspection Extremities: Normal Inspection, Other (multiple tatoos) Skin: Warm Neurological: Cranial Nerves Intact, Normal Speech Neuro Extensive - Mental Status: Alert, Oriented x3, Normal Cognition, Memory Intact Neuro Extensive - Motor, Sensory, Reflexes: CN II-XII Intact Psychiatric: Alert, Anxious, Depressed - Patient Data Lab Results last 24 hrs: Laboratory Results - last 24 hr 08/23/16 08/23/16 08/23/16 Range/Units 05:33 05:33 05:33 WBC 5.36 (4.23-9.07) K/mm3 RBC 4.52 L (4.63-6.08) M/mm3 Hgb 9.1 L (13.7-17.5) gm/L Hct 31.4 L (40.1-51.0) % MCV 69.5 L (79.0-92.2) fl MCH 20.1 L (25.7-32.2) pg MCHC 29.0 L (32.2-35.5) g/dl RDW Std Deviation 44.3 H (35.1-43.9) fL Plt Count 311 (163-337) K/mm3 MPV 10.3 (9.4-12.3) fl Neut % (Auto) 49.3 (34.0-67.9) % Lymph % (Auto) 33.2 (21.8-53.1) % [place] % (Auto) 13.4 H (5.3-12.2) % Eos % (Auto) 2.8 (0.8-7.0) Baso % (Auto) 1.1 (0.1-1.2) % Neut # (Auto) 2.64 (1.78-5.38) K/mm3 Lymph # (Auto) 1.78 (1.32-3.57) K/mm3 [place] # (Auto) 0.72 (0.30-0.82) K/mm3 Eos # (Auto) 0.15 (0.04-0.54) K/mm3 Baso # (Auto) 0.06 (0.01-0.08) K/mm3 Manual Slide Review Abnormal smear Sodium 144 (136-145) mEq/L Potassium 3.9 (3.5-5.1) mEq/L Chloride 108 H (98-107) mEq/L Carbon Dioxide 27 (21-32) mEq/L Anion Gap 12.9 (5-15) BUN 13 (7-18) mg/dL Creatinine 1.1 (0.7-1.3) mg/dL Est Cr Clr Drug Dosing 97.56 mL/min Estimated GFR (MDRD) > 60 (>60) mL/min BUN/Creatinine Ratio 11.8 L (14-18) Glucose 102 (74-106) mg/dL Lactic Acid 1.1 (0.4-2.0) mmol/L Calcium 7.6 L (8.5-10.1) mg/dL Magnesium 1.9 (1.8-2.4) mg/dl Total Bilirubin 0.3 (0.2-1.0) mg/dL AST 12 L (15-37) U/L ALT 24 (16-63) U/L Alkaline Phosphatase 64 (46-116) U/L Total Protein 6.2 L (6.4-8.2) g/dl Albumin 2.8 L (3.4-5.0) g/dl Globulin 3.4 gm/dL Albumin/Globulin Ratio 0.8 L (1-2) Result Diagrams: 08/23/16 05:33 08/23/16 05:33 *Q Meaningful Use (ADM) - VTE *Q VTE Criteria *Q: - Stroke *Q Stroke Criteria *Q: - AMI *Q AMI Criteria *Q: - Problem List (1) Alcohol intoxication SNOMED Code(s): 69030245 ICD Code: F10.929 - ALCOHOL USE, UNSPECIFIED WITH INTOXICATION, UNSPECIFIED Status: Acute Current Visit: Yes (2) Suicidal intent SNOMED Code(s): 691820150 ICD Code: R45.851 - SUICIDAL IDEATIONS Status: Acute Current Visit: Yes (3) Anemia SNOMED Code(s): 378217192 ICD Code: D64.9 - ANEMIA, UNSPECIFIED Status: Acute Current Visit: No Qualifiers: Anemia type: iron deficiency (4) GERD (gastroesophageal reflux disease) SNOMED Code(s): 501259082 ICD Code: K21.9 - GASTRO-ESOPHAGEAL REFLUX DISEASE WITHOUT ESOPHAGITIS Status: Acute Current Visit: No (5) Hypertension SNOMED Code(s): 37305302 ICD Code: I10 - ESSENTIAL (PRIMARY) HYPERTENSION Status: Acute Current Visit: No (6) Non-cardiac chest pain SNOMED Code(s): 498225948 ICD Code: R07.89 - OTHER CHEST PAIN Status: Acute Current Visit: No Problem List Initiated/Reviewed/Updated: Yes Orders Last 24hrs: Active Orders 24 hr Category Date Time Status CIWAA Assessment [RC] Q2H Care 08/23/16 00:00 Active Notify Provider Consults [RC] ASDIRECTED Care 08/23/16 01:50 Active Notify Provider Consults [RC] ASDIRECTED Care 08/23/16 01:54 Active Consult for Substance Abuse [CONS] Routine Cons 08/23/16 05:04 Active Consult to Physician [CONS] Routine Cons 08/23/16 01:47 Active Consult to Physician [CONS] Routine Cons 08/23/16 01:51 Active Consult to Fire Extinguisher Installer [CONS] Routine Cons 08/23/16 01:47 Active Haloperidol Lactate [Haldol] Med 08/23/16 01:00 Active 2 mg IVPUSH Q8H PRN LORazepam [Ativan] Med 08/23/16 01:00 Active 2 mg IVPUSH Q2H PRN Metoprolol Tartrate [Lopressor] Med 08/23/16 09:00 Active 25 mg PO BID Metoprolol Tartrate [Lopressor] Med 08/23/16 02:04 Active 5 mg IVPUSH Q6H PRN Temazepam [Restoril] Med 08/23/16 01:26 Active 30 mg PO BEDTIME PRN chlordiazePOXIDE [Librium] Med 08/23/16 09:00 Active 25 mg PO QID cloNIDine [Catapres] Med 08/23/16 09:00 Active 0.1 mg PO Q8H One To One Therapy [BH] Routine Oth 08/23/16 07:59 Ordered Medication Orders Chlordiazepoxide HCl (Librium) 25 mg PO QID MATT Last Admin: 08/23/16 08:48 Dose: 25 mg Clonidine HCl (Catapres) 0.1 mg PO Q8H MATT Last Admin: 08/23/16 08:48 Dose: 0.1 mg Haloperidol Lactate (Haldol) 2 mg IVPUSH Q8H PRN PRN Reason: Agitation Last Admin: 08/23/16 03:36 Dose: 2 mg Lorazepam (Ativan) 2 mg IVPUSH Q2H PRN PRN Reason: Anxiety Last Admin: 08/23/16 01:50 Dose: 2 mg Metoprolol Tartrate (Lopressor) 5 mg IVPUSH Q6H PRN PRN Reason: Tachycardia Metoprolol Tartrate (Lopressor) 25 mg PO BID MATT Last Admin: 08/23/16 08:49 Dose: 25 mg Temazepam (Restoril) 30 mg PO BEDTIME PRN PRN Reason: Insomnia Assessment/Plan Comment:: Impression: Suicidal Ideation; ETOH abuse; substance abuse: Marijuana, Hashish, Methamphetamine Anxiety/Depression, unspecified Etoh acute intoxication, recent ETOH sobriety program, clean for 8 weeks Post code for LOC with response to medical RX; received Narcan and Flumazenil. History of blood loss from unknown site, stopped on coumadin 5-7 days [employer] History of PEs on coumadin stopped by MD in the ED at [facility] history of DVTs Query Factor V Leiden def. Chronic PEs CMP, nonischemic Query SC; query CHF GERD HTN Hypothyroidism Plan: CIWA SA consult with Chad Rodriguez, 08/23/16 re: poly-substance abuse, need for inpatient treatment Psych consult with Pepito Mchugh MD on 08/23/16 re: anxiety/depression/suicidal ideation Benzodazepine Clonidine Home meds GI/DVT prophylaxis Heme work up GI work up Suicide precautions Correct electrolytes as needed 2D echo, history of CMP/CHF
[2016-08-23] MEDS ORDERED: Magnesium Sulfate/Water 2 GM in Premix Bag 1 BAG IV ONE (12:02)
[2016-08-23] MEDS: Folic Acid 1 MG Tab PO SCH (12:36)
[2016-08-23] MEDS: Enoxaparin 40 MG/0.4 ML Syringe SUBCUT SCH (12:36)
--- NOTE | 2016-08-23 12:54 | PCM.PN ---
- General Info Date of Service: 08/23/16 Functional Status: Reports: pain controlled, tolerating diet, ambulating, urinating - Review of Systems General: Reports: No Symptoms HEENT: Reports: no symptoms Pulmonary: Reports: no symptoms Cardiovascular: Reports: No Symptoms Gastrointestinal: Reports: No symptoms Genitourinary: Reports: no symptoms Musculoskeletal: Reports: no symptoms Skin: Reports: no symptoms Neurological: Reports: No Symptoms Psychiatric: Reports: depression, anxiety - Patient Data Vitals - most recent: Last Vital Signs Temp 36.8 C 08/23/16 12:00 Pulse 86 08/23/16 08:49 Resp 16 08/23/16 12:00 BP 155/85 H 08/23/16 08:49 Pulse Ox 99 08/23/16 12:00 Weight - most recent: 117.571 kg I&O - last 24 hours: Intake & Output 08/22/16 08/23/16 08/23/16 22:59 06:59 14:59 Intake Total 300 600 Output Total 750 200 Balance -450 400 Lab Results last 24 hrs: Laboratory Results - last 24 hr 08/23/16 08/23/16 08/23/16 Range/Units 05:33 05:33 05:33 WBC 5.36 (4.23-9.07) K/mm3 RBC 4.52 L (4.63-6.08) M/mm3 Hgb 9.1 L (13.7-17.5) gm/L Hct 31.4 L (40.1-51.0) % MCV 69.5 L (79.0-92.2) fl MCH 20.1 L (25.7-32.2) pg MCHC 29.0 L (32.2-35.5) g/dl RDW Std Deviation 44.3 H (35.1-43.9) fL Plt Count 311 (163-337) K/mm3 MPV 10.3 (9.4-12.3) fl Neut % (Auto) 49.3 (34.0-67.9) % Lymph % (Auto) 33.2 (21.8-53.1) % [place] % (Auto) 13.4 H (5.3-12.2) % Eos % (Auto) 2.8 (0.8-7.0) Baso % (Auto) 1.1 (0.1-1.2) % Neut # (Auto) 2.64 (1.78-5.38) K/mm3 Lymph # (Auto) 1.78 (1.32-3.57) K/mm3 [place] # (Auto) 0.72 (0.30-0.82) K/mm3 Eos # (Auto) 0.15 (0.04-0.54) K/mm3 Baso # (Auto) 0.06 (0.01-0.08) K/mm3 Manual Slide Review Abnormal smear Sodium 144 (136-145) mEq/L Potassium 3.9 (3.5-5.1) mEq/L Chloride 108 H (98-107) mEq/L Carbon Dioxide 27 (21-32) mEq/L Anion Gap 12.9 (5-15) BUN 13 (7-18) mg/dL Creatinine 1.1 (0.7-1.3) mg/dL Est Cr Clr Drug Dosing 97.56 mL/min Estimated GFR (MDRD) > 60 (>60) mL/min BUN/Creatinine Ratio 11.8 L (14-18) Glucose 102 (74-106) mg/dL Lactic Acid 1.1 (0.4-2.0) mmol/L Calcium 7.6 L (8.5-10.1) mg/dL Magnesium 1.9 (1.8-2.4) mg/dl Total Bilirubin 0.3 (0.2-1.0) mg/dL AST 12 L (15-37) U/L ALT 24 (16-63) U/L Alkaline Phosphatase 64 (46-116) U/L Total Protein 6.2 L (6.4-8.2) g/dl Albumin 2.8 L (3.4-5.0) g/dl Globulin 3.4 gm/dL Albumin/Globulin Ratio 0.8 L (1-2) Med Orders - Current: Current Medications Carvedilol (Coreg) 12.5 mg PO BID [facility] Chlordiazepoxide HCl (Librium) 25 mg PO QID [facility] Last Admin: 08/23/16 12:36 Dose: 25 mg Clonidine HCl (Catapres) 0.1 mg PO Q8H [facility] Last Admin: 08/23/16 08:48 Dose: 0.1 mg Enoxaparin Sodium (Lovenox) 40 mg SUBCUT DAILY [facility] Last Admin: 08/23/16 12:36 Dose: 40 mg Ferrous Sulfate (Ferrous Sulfate) 325 mg PO WITHBREAKFAST [facility] Fluoxetine HCl (Prozac) 20 mg PO DAILY [facility] Folic Acid (Folic Acid) 1 mg PO DAILY [facility] Last Admin: 08/23/16 12:36 Dose: 1 mg Haloperidol Lactate (Haldol) 2 mg IVPUSH Q8H PRN PRN Reason: Agitation Last Admin: 08/23/16 03:36 Dose: 2 mg Magnesium Sulfate 2 gm/ Premix 50 mls @ 25 mls/hr IV ONETIME ONE Stop: 08/23/16 14:01 Last Admin: 08/23/16 12:37 Dose: 25 mls/hr Lisinopril (Prinivil) 5 mg PO DAILY [facility] Lorazepam (Ativan) 2 mg IVPUSH Q2H PRN PRN Reason: Anxiety Last Admin: 08/23/16 01:50 Dose: 2 mg Metoprolol Tartrate (Lopressor) 5 mg IVPUSH Q6H PRN PRN Reason: Tachycardia Quetiapine Fumarate (Seroquel) 50 mg PO BEDTIME MATT Temazepam (Restoril) 30 mg PO BEDTIME PRN PRN Reason: Insomnia Thiamine HCl (Vitamin B-1) 100 mg PO BEDTIME [facility] Discontinued Medications Chlordiazepoxide HCl (Librium) 25 mg PO ONETIME ONE Stop: 08/23/16 01:41 Last Admin: 08/23/16 05:06 Dose: Not Given Flumazenil (Romazicon) Confirm Administered Dose 0.5 mg .ROUTE .STK-MED ONE Stop: 08/22/16 20:55 Last Admin: 08/23/16 01:59 Dose: Not Given Flumazenil (Romazicon) 0.1 mg IVPUSH ONETIME ONE Stop: 08/22/16 21:04 Last Admin: 08/22/16 21:32 Dose: 0.1 mg Lactated Ringer's (Ringers, Lactated) 1,000 mls @ 125 mls/hr IV ONETIME ONE Stop: 08/23/16 05:13 Last Admin: 08/22/16 21:17 Dose: 125 mls/hr Lorazepam (Ativan) Confirm Administered Dose 2 mg .ROUTE .STK-MED ONE Stop: 08/23/16 00:04 Last Admin: 08/23/16 00:03 Dose: 2 mg Metoprolol Tartrate (Lopressor) 25 mg PO BID MATT Last Admin: 08/23/16 08:49 Dose: 25 mg Naloxone HCl (Narcan) Confirm Administered Dose 2 mg .ROUTE .STK-MED ONE Stop: 08/22/16 20:50 Last Admin: 08/23/16 01:59 Dose: Not Given Naloxone HCl (Narcan) 1 mg IVPUSH ONETIME ONE Stop: 08/22/16 21:04 Last Admin: 08/22/16 21:19 Dose: 1 mg Naloxone HCl (Narcan) 1 mg IVPUSH ONETIME ONE Stop: 08/22/16 21:06 Last Admin: 08/22/16 21:19 Dose: 1 mg Ondansetron HCl (Zofran) 4 mg IVPUSH ONETIME ONE Stop: 08/22/16 21:15 Last Admin: 08/22/16 21:17 Dose: 4 mg - Exam Quality Assessment: supplemental oxygen, DVT prophylaxis General: alert, oriented, cooperative, no acute distress HEENT: Pupils equal, Pupils reactive, EOMI Neck: supple, trachea midline, no JVD Lungs: Normal respiratory effort, Decreased breath sounds Cardiovascular: Regular Rate, Regular Rhythm Abdomen: bowel sounds present, soft, no tenderness, no distension (Male) Exam: Deferred Back Exam: Normal Inspection Extremities: normal pulses Skin: warm Neurological: no new focal deficit, normal gait, normal speech Psy/Mental Status: alert, anxious, depressed - Problem List & Annotations (1) Alcohol intoxication SNOMED Code(s): 43527029 Code(s): F10.929 - ALCOHOL USE, UNSPECIFIED WITH INTOXICATION, UNSPECIFIED Status: Acute Current Visit: Yes (2) Suicidal intent SNOMED Code(s): 209781032 Code(s): R45.851 - SUICIDAL IDEATIONS Status: Acute Current Visit: Yes (3) Anemia SNOMED Code(s): 123252833 Code(s): D64.9 - ANEMIA, UNSPECIFIED Status: Acute Current Visit: No Qualifiers: Anemia type: iron deficiency (4) GERD (gastroesophageal reflux disease) SNOMED Code(s): 080863200 Code(s): K21.9 - GASTRO-ESOPHAGEAL REFLUX DISEASE WITHOUT ESOPHAGITIS Status: Acute Current Visit: No (5) Hypertension SNOMED Code(s): 41951812 Code(s): I10 - ESSENTIAL (PRIMARY) HYPERTENSION Status: Acute Current Visit: No (6) Non-cardiac chest pain SNOMED Code(s): 298808453 Code(s): R07.89 - OTHER CHEST PAIN Status: Acute Current Visit: No (7) Depression SNOMED Code(s): 10961658 Code(s): F32.9 - MAJOR DEPRESSIVE DISORDER, SINGLE EPISODE, UNSPECIFIED Status: Acute Current Visit: Yes - Problem List Review Problem List Initiated/Reviewed/Updated: Yes - My Orders Last 24 Hours: My Active Orders 08/23/16 00:00 CIWAA Assessment [RC] Q2H 08/23/16 01:00 Haloperidol Lactate [Haldol] 2 mg IVPUSH Q8H PRN LORazepam [Ativan] 2 mg IVPUSH Q2H PRN 08/23/16 01:26 Temazepam [Restoril] 30 mg PO BEDTIME PRN 08/23/16 01:47 Consult to Physician [CONS] Routine Consult to Transplant Case Manager [CONS] Routine 08/23/16 01:50 Notify Provider Consults [RC] ASDIRECTED 08/23/16 01:51 Consult to Physician [CONS] Routine 08/23/16 01:54 Notify Provider Consults [RC] ASDIRECTED 08/23/16 02:04 Metoprolol Tartrate [Lopressor] 5 mg IVPUSH Q6H PRN 08/23/16 05:04 Consult for Substance Abuse [CONS] Routine 08/23/16 07:59 One To One Therapy [BH] Routine 08/23/16 09:00 chlordiazePOXIDE [Librium] 25 mg PO QID cloNIDine [Catapres] 0.1 mg PO Q8H 08/23/16 12:02 Magnesium Sulfate/Water [Magnesium Sulfate 2 GM in Water 50 ML] 2 gm Premix Bag 1 bag IV ONETIME 08/23/16 12:08 Antiembolic Devices [RC] PER UNIT ROUTINE AMAN Hose [Antiembolic Hose] [OM.PC] Routine 08/23/16 12:15 Enoxaparin [Lovenox] 40 mg SUBCUT DAILY Folic Acid 1 mg PO DAILY 08/23/16 18:00 ANTIPHOSPHOLIPID PANEL 1 RFLX [REF] Routine FACTOR 5 LEIDEN MUTATION [REF] Routine PROTEIN C AND S ACTIVITY [REF] Routine 08/23/16 21:00 Carvedilol [Coreg] 12.5 mg PO BID QUEtiapine [SEROquel] 50 mg PO BEDTIME Thiamine [Vitamin B-1] 100 mg PO BEDTIME 08/24/16 05:00 BASIC METABOLIC PANEL,BMP [CHEM] DAILY CBC WITH AUTO DIFF [HEME] DAILY MAGNESIUM [CHEM] DAILY 08/24/16 07:00 Ferrous Sulfate 325 mg PO WITHBREAKFAST 08/24/16 09:00 Echo Comp wo Cont [US] Routine FLUoxetine [PROzac] 20 mg PO DAILY 08/24/16 21:00 Lisinopril [Prinivil] 5 mg PO DAILY 08/25/16 05:00 BASIC METABOLIC PANEL,BMP [CHEM] DAILY CBC WITH AUTO DIFF [HEME] DAILY MAGNESIUM [CHEM] DAILY 08/26/16 05:00 BASIC METABOLIC PANEL,BMP [CHEM] DAILY CBC WITH AUTO DIFF [HEME] DAILY MAGNESIUM [CHEM] DAILY 08/27/16 05:00 BASIC METABOLIC PANEL,BMP [CHEM] DAILY CBC WITH AUTO DIFF [HEME] DAILY MAGNESIUM [CHEM] DAILY - Plan Plan:: Impression: Suicidal Ideation; ETOH abuse; substance abuse: Marijuana, Hashish, Methamphetamine Anxiety/Depression, unspecified Etoh acute intoxication, recent ETOH sobriety program, clean for 8 weeks Post code for LOC with response to medical RX; received Narcan and Flumazenil. 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 Chronic PEs CMP, nonischemic Query [place]; query CHF GERD HTN Hypothyroidism Plan: CIWA SA, IP treatment Psych, IP treatment Benzodazepine Clonidine Home meds GI/DVT prophylaxis Heme work up GI work up, consult Gen Surg 08/25/16. Suicide precautions Correct electrolytes as needed 2D echo is pending.
[2016-08-23] MEDS: QUEtiapine 25 MG Tab PO SCH (20:20)
[2016-08-23] MEDS: Carvedilol 12.5 MG Tab PO SCH (20:21)
[2016-08-23] MEDS: Thiamine 100 MG Tab PO SCH (20:21)
--- NOTE | 2016-08-23 23:44 | CONS ---
CONSULTING PHYSICIAN: Pepito Mchugh MD DATE OF CONSULTATION: 08/23/2016 This is a 60-minute inpatient clinical event. IDENTIFICATION: The patient is a 45-year-old male who was admitted to the MICU at [facility] in [place], [place] on 08/22/2016. He is seen for psychiatric evaluation. CHIEF COMPLAINT: "Apparently I drank too much." HISTORY OF PRESENT ILLNESS: The patient is a 45-year-old male who reports that he had been drinking "about 2 pints and a six-pack" of beer a day lately. He states he has been struggling with depression and been drinking to help quell his feelings. The patient feels that he is very hopeless. He states he has "health issues and family issues" that are bringing him down. The patient states in addition to his depression he struggles with anxiety and poor sleep. He states he has been experiencing weird dreams and he does endorse suicidal ideation. He denies that he is suicidal on the unit but notes "if I was by myself and I was able to keep drinking until I couldn't drink anymore, I think I sure would." The patient denies any excessive mood swings. He states that he has taken Prozac and Zoloft in the past, and he thinks these medications may have helped with his mood, but he is not sure. He is wanting to stop drinking because it is affecting him and he knows he has a drinking problem and he would like to get something to help with his mood. MEDICATIONS: At the time of presentation, none. ALLERGIES: No known drug allergies. PAST MEDICAL HISTORY: 1. Possible GI bleed. 2. Hypothyroidism. 3. Stage 3 kidney disease. 4. Status post cholecystectomy. 5. History of CHF. 6. History of coronary artery disease. REVIEW OF SYSTEMS: Aside from GI, endocrine, nephrologic, and cardiovascular, all other major organ systems are negative at this point in time for acute difficulties or complications. FAMILY PSYCHIATRIC AND CD HISTORY: The patient reports brother had CD issues. He had another brother who had possible bipolar affective disease. PAST PSYCHIATRIC AND CD HISTORY: The patient reports one psychiatric hospitalization in 2016 secondary to suicide attempt. He denies any chemical dependency treatments. He has gone to and this has helped him in the past. He has had prior detox admissions. PAST PSYCHIATRIC MEDICATION HISTORY: Includes Ativan, Prozac, and Zoloft. The patient has a primary provider, Dr. Webster, out of [place], [place]. SOCIAL HISTORY: The patient was born and raised in [place]. He is the 4th of 4 siblings, having 3 brothers. The patient splits time between [place] and [place]. 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 He has been , has 2 children from the marriage, but he has been for the past 14 years. He is not involved in any current relationships. Denies any prior service. He has a pending DWI in [place]. He is a [employer] in terms of his artur formation, pentecostal. MENTAL STATUS EXAM: The patient is a 45-year-old white male in no apparent distress. Speech is of regular rate and rhythm. The patient is cognitively oriented x3. Psychomotor activity is within normal limits. There are no abnormal motor movements or tics observed. Gait and station are not observed. The patient is lying in bed for the inpatient consult. Mood is depressed. Affect consistent with stated mood, restrictive but cooperative overall for the purposes of the inpatient consult. The patient does endorse suicidal ideation without a plan. Denies homicidal ideation. Contracts for safety on the unit. Reports some "weird dreams" when asked about psychotic symptoms and paranoia. Thought processes are slow. There may be some thought blocking evident. There are no manic symptoms or loose associations evident. Judgment and insight appear somewhat impaired secondary to severity of the patient's depression and alcohol dependence. Motivation for help, however, appears good. VITAL SIGNS: 155/85, 65, 16, and 98.5 degrees. IMPRESSION: [place] I: 1. Alcohol dependence, F10.20. 2. Major depressive disorder, recurrent, F33.2. 3. Anxiety disorder, not otherwise specified, F41.9. [place] II: None. [place] III: 1. Rule out gastrointestinal bleed. 2. Hypothyroidism. 3. Stage 3 kidney disease. 4. Status post cholecystectomy. 5. Congestive heart failure. 6. Coronary artery disease. [place] IV: Severe. [place] V: 50. PLAN: 1. Continue one-one for safety purposes. 2. AA rep. 3. Pastoral guidance. 4. Sobriety. 5. Folic acid supplementation. 6. Thiamine supplementation. 7. Begin Prozac 20 mg q.a.m. for mood. 8. Begin Seroquel 50 mg at bedtime for clarity of thought. 9. Sleep initiation and maintenance, anxiety reduction, and also to eliminate any psychotic symptoms patient may be experiencing. 10.[facility] protocol for withdrawal. 11.Recommend that once the patient is medically stable he will be transferred to inpatient psychiatry for psychiatric stabilization. 12.Recommend that when patient is psychiatrically stabilized that he also have a chemical-dependency treatment. 13.Would recommend chemical dependency consult if not already done. 14.We will continue follow up with the patient as needed while he remains on the inpatient MICU. 15.We will follow up with the patient sooner if there are any complications in the interim. 16.Crisis plan is in place. FILIPE /[id number]
[2016-08-24] MEDS: cloNIDine 0.1 MG Tab PO SCH ×3 (01:12→17:23)
[2016-08-24] MEDS: Levothyroxine 25 MCG Tab PO SCH (06:10)
[2016-08-24] MEDS: Ferrous Sulfate 325 MG Tab PO SCH (06:10)
[2016-08-24] MEDS ORDERED: LORazepam 2 MG/ML MDV IVPUSH PRN (08:00)
[2016-08-24] MEDS: Carvedilol 12.5 MG Tab PO SCH ×2 (08:29→20:08)
[2016-08-24] MEDS: Folic Acid 1 MG Tab PO SCH (08:30)
[2016-08-24] MEDS: Enoxaparin 40 MG/0.4 ML Syringe SUBCUT SCH (08:31)
[2016-08-24] MEDS: chlordiazePOXIDE 25 MG Cap PO SCH ×4 (08:31→20:09)
[2016-08-24] MEDS: FLUoxetine 20 MG Cap PO SCH (08:31)
[2016-08-24] MEDS: Potassium Chloride 10% 20 MEQ/15 ML Soln 30 ML UD Cup PO SCH ×2 (11:52→20:07)
--- NOTE | 2016-08-24 14:31 | PCM.PN ---
- General Info Date of Service: 08/24/16 Functional Status: Reports: tolerating diet, ambulating, urinating - Review of Systems General: Reports: No Symptoms HEENT: Reports: no symptoms Pulmonary: Reports: no symptoms Cardiovascular: Reports: No Symptoms Gastrointestinal: Reports: No symptoms Genitourinary: Reports: no symptoms Musculoskeletal: Reports: no symptoms Skin: Reports: no symptoms Neurological: Reports: No Symptoms Psychiatric: Reports: no symptoms - Patient Data Vitals - most recent: Last Vital Signs Temp 36.8 C 08/24/16 11:55 Pulse 59 L 08/24/16 11:00 Resp 14 08/24/16 11:55 BP 145/83 H 08/24/16 11:55 Pulse Ox 97 08/24/16 11:55 Weight - most recent: 117.571 kg I&O - last 24 hours: Intake & Output 08/23/16 08/24/16 08/24/16 22:59 06:59 14:59 Intake Total 770 950 720 Output Total 40 1950 600 Balance 730 -1000 120 Lab Results last 24 hrs: Laboratory Results - last 24 hr 08/24/16 08/24/16 Range/Units 06:21 06:21 WBC 5.55 (4.23-9.07) K/mm3 RBC 4.50 L (4.63-6.08) M/mm3 Hgb 8.9 L (13.7-17.5) gm/L Hct 31.4 L (40.1-51.0) % MCV 69.8 L (79.0-92.2) fl MCH 19.8 L (25.7-32.2) pg MCHC 28.3 L (32.2-35.5) g/dl RDW Std Deviation 43.8 (35.1-43.9) fL Plt Count 267 (163-337) K/mm3 MPV 10.7 (9.4-12.3) fl Neut % (Auto) 47.0 (34.0-67.9) % Lymph % (Auto) 37.3 (21.8-53.1) % [place] % (Auto) 10.3 (5.3-12.2) % Eos % (Auto) 4.1 (0.8-7.0) Baso % (Auto) 1.1 (0.1-1.2) % Neut # (Auto) 2.61 (1.78-5.38) K/mm3 Lymph # (Auto) 2.07 (1.32-3.57) K/mm3 [place] # (Auto) 0.57 (0.30-0.82) K/mm3 Eos # (Auto) 0.23 (0.04-0.54) K/mm3 Baso # (Auto) 0.06 (0.01-0.08) K/mm3 Manual Slide Review Abnormal smear Sodium 138 (136-145) mEq/L Potassium 3.7 (3.5-5.1) mEq/L Chloride 104 (98-107) mEq/L Carbon Dioxide 27 (21-32) mEq/L Anion Gap 10.7 (5-15) BUN 13 (7-18) mg/dL Creatinine 1.1 (0.7-1.3) mg/dL Est Cr Clr Drug Dosing 97.56 mL/min Estimated GFR (MDRD) > 60 (>60) mL/min BUN/Creatinine Ratio 11.8 L (14-18) Glucose 94 (74-106) mg/dL Calcium 8.2 L (8.5-10.1) mg/dL Magnesium 2.0 (1.8-2.4) mg/dl Med Orders - Current: Current Medications Carvedilol (Coreg) 12.5 mg PO BID [facility] Last Admin: 08/24/16 08:29 Dose: 12.5 mg Chlordiazepoxide HCl (Librium) 25 mg PO QID [facility] Last Admin: 08/24/16 12:43 Dose: 25 mg Clonidine HCl (Catapres) 0.1 mg PO Q8H [facility] Last Admin: 08/24/16 08:31 Dose: 0.1 mg Enoxaparin Sodium (Lovenox) 40 mg SUBCUT DAILY [facility] Last Admin: 08/24/16 08:31 Dose: 40 mg Ferrous Sulfate (Ferrous Sulfate) 325 mg PO WITHBREAKFAST [facility] Last Admin: 08/24/16 06:10 Dose: 325 mg Fluoxetine HCl (Prozac) 20 mg PO DAILY [facility] Last Admin: 08/24/16 08:31 Dose: 20 mg Folic Acid (Folic Acid) 1 mg PO DAILY [facility] Last Admin: 08/24/16 08:30 Dose: 1 mg Haloperidol Lactate (Haldol) 2 mg IVPUSH Q8H PRN PRN Reason: Agitation Last Admin: 08/23/16 03:36 Dose: 2 mg Levothyroxine Sodium (Levothyroxine) 25 mcg PO ACBREAKFAST [facility] Last Admin: 08/24/16 06:10 Dose: 25 mcg Lisinopril (Prinivil) 5 mg PO DAILY MATT Lorazepam (Ativan) 2 mg IVPUSH Q2H PRN PRN Reason: Anxiety Last Admin: 08/23/16 01:50 Dose: 2 mg Lorazepam (Ativan) 1 - 2 mg IVPUSH Q4H PRN; Protocol PRN Reason: Withdrawal Symptoms Metoprolol Tartrate (Lopressor) 5 mg IVPUSH Q6H PRN PRN Reason: Tachycardia Potassium Chloride (Potassium Chloride) 40 meq PO BID [facility] Stop: 08/25/16 21:01 Last Admin: 08/24/16 11:52 Dose: 40 meq Quetiapine Fumarate (Seroquel) 50 mg PO BEDTIME [facility] Last Admin: 08/23/16 20:20 Dose: 50 mg Temazepam (Restoril) 30 mg PO BEDTIME PRN PRN Reason: Insomnia Thiamine HCl (Vitamin B-1) 100 mg PO BEDTIME [facility] Last Admin: 08/23/16 20:21 Dose: 100 mg Discontinued Medications Chlordiazepoxide HCl (Librium) 25 mg PO ONETIME ONE Stop: 08/23/16 01:41 Last Admin: 08/23/16 05:06 Dose: Not Given Flumazenil (Romazicon) Confirm Administered Dose 0.5 mg .ROUTE .STK-MED ONE Stop: 08/22/16 20:55 Last Admin: 08/23/16 01:59 Dose: Not Given Flumazenil (Romazicon) 0.1 mg IVPUSH ONETIME ONE Stop: 08/22/16 21:04 Last Admin: 08/22/16 21:32 Dose: 0.1 mg Lactated Ringer's (Ringers, Lactated) 1,000 mls @ 125 mls/hr IV ONETIME ONE Stop: 08/23/16 05:13 Last Admin: 08/22/16 21:17 Dose: 125 mls/hr Magnesium Sulfate 2 gm/ Premix 50 mls @ 25 mls/hr IV ONETIME ONE Stop: 08/23/16 14:01 Last Admin: 08/23/16 12:37 Dose: 25 mls/hr Lorazepam (Ativan) Confirm Administered Dose 2 mg .ROUTE .STK-MED ONE Stop: 08/23/16 00:04 Last Admin: 08/23/16 00:03 Dose: 2 mg Metoprolol Tartrate (Lopressor) 25 mg PO BID MATT Last Admin: 08/23/16 08:49 Dose: 25 mg Naloxone HCl (Narcan) Confirm Administered Dose 2 mg .ROUTE .STK-MED ONE Stop: 08/22/16 20:50 Last Admin: 08/23/16 01:59 Dose: Not Given Naloxone HCl (Narcan) 1 mg IVPUSH ONETIME ONE Stop: 08/22/16 21:04 Last Admin: 08/22/16 21:19 Dose: 1 mg Naloxone HCl (Narcan) 1 mg IVPUSH ONETIME ONE Stop: 08/22/16 21:06 Last Admin: 08/22/16 21:19 Dose: 1 mg Ondansetron HCl (Zofran) 4 mg IVPUSH ONETIME ONE Stop: 08/22/16 21:15 Last Admin: 08/22/16 21:17 Dose: 4 mg - Exam Quality Assessment: DVT prophylaxis General: alert, oriented, cooperative, no acute distress HEENT: Pupils equal, Pupils reactive, EOMI Neck: supple, trachea midline Lungs: Normal respiratory effort Cardiovascular: Regular Rate, Tachycardia Abdomen: bowel sounds present, soft, no tenderness, no distension (Male) Exam: Deferred Back Exam: Normal Inspection Extremities: normal pulses Skin: warm Neurological: no new focal deficit, normal speech Psy/Mental Status: alert, depressed - Problem List & Annotations (1) Alcohol intoxication SNOMED Code(s): 73172095 Code(s): F10.929 - ALCOHOL USE, UNSPECIFIED WITH INTOXICATION, UNSPECIFIED Status: Acute Current Visit: Yes (2) Suicidal intent SNOMED Code(s): 769402915 Code(s): R45.851 - SUICIDAL IDEATIONS Status: Acute Current Visit: Yes (3) Anemia SNOMED Code(s): 304011553 Code(s): D64.9 - ANEMIA, UNSPECIFIED Status: Acute Current Visit: No Qualifiers: Anemia type: iron deficiency (4) GERD (gastroesophageal reflux disease) SNOMED Code(s): 793697076 Code(s): K21.9 - GASTRO-ESOPHAGEAL REFLUX DISEASE WITHOUT ESOPHAGITIS Status: Acute Current Visit: No (5) Hypertension SNOMED Code(s): 04971282 Code(s): I10 - ESSENTIAL (PRIMARY) HYPERTENSION Status: Acute Current Visit: No (6) Non-cardiac chest pain SNOMED Code(s): 179534685 Code(s): R07.89 - OTHER CHEST PAIN Status: Acute Current Visit: No (7) Depression SNOMED Code(s): 50982487 Code(s): F32.9 - MAJOR DEPRESSIVE DISORDER, SINGLE EPISODE, UNSPECIFIED Status: Acute Current Visit: Yes - Problem List Review Problem List Initiated/Reviewed/Updated: Yes - My Orders Last 24 Hours: My Active Orders 08/23/16 18:20 ANTIPHOSPHOLIPID PANEL 1 RFLX [REF] Routine FACTOR 5 LEIDEN MUTATION [REF] Routine PROTEIN C AND S ACTIVITY [REF] Routine 08/23/16 21:00 Carvedilol [Coreg] 12.5 mg PO BID QUEtiapine [SEROquel] 50 mg PO BEDTIME Thiamine [Vitamin B-1] 100 mg PO BEDTIME 08/23/16 Dinner Heart Healthy Diet [DIET] 08/24/16 06:00 Levothyroxine 25 mcg PO ACBREAKFAST 08/24/16 07:00 Ferrous Sulfate 325 mg PO WITHBREAKFAST 08/24/16 08:00 LORazepam [Ativan] 1 - 2 mg IVPUSH Q4H PRN 08/24/16 09:00 FLUoxetine [PROzac] 20 mg PO DAILY 08/24/16 10:45 Potassium Chloride 40 meq PO BID 08/24/16 21:00 Lisinopril [Prinivil] 5 mg PO DAILY 08/25/16 05:00 BASIC METABOLIC PANEL,BMP [CHEM] DAILY CBC WITH AUTO DIFF [HEME] DAILY MAGNESIUM [CHEM] DAILY 08/26/16 05:00 BASIC METABOLIC PANEL,BMP [CHEM] DAILY CBC WITH AUTO DIFF [HEME] DAILY MAGNESIUM [CHEM] DAILY 08/27/16 05:00 BASIC METABOLIC PANEL,BMP [CHEM] DAILY CBC WITH AUTO DIFF [HEME] DAILY MAGNESIUM [CHEM] DAILY - Plan Plan:: Impression: Suicidal Ideation; ETOH abuse; substance abuse: Marijuana, Hashish, Methamphetamine Anxiety/Depression, unspecified Etoh acute intoxication, recent ETOH sobriety program, clean for 8 weeks Post code for LOC with response to medical RX; received Narcan and Flumazenil. 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 Chronic PEs CMP, nonischemic Query OK; query CHF GERD HTN Hypothyroidism Plan: CIWA SA, IP treatment Psych, IP treatment Benzodazepine Clonidine Home meds GI/DVT prophylaxis Heme work up GI work up, consult Gen Surg 08/25/16. Suicide precautions Correct electrolytes as needed 2D echo is pending.
[2016-08-24] MEDS ORDERED: LORazepam 1 MG Tab PO PRN (14:34)
--- NOTE | 2016-08-24 16:42 | CONS ---
CONSULTING PHYSICIAN: Chad Rodriguez LAC DATE OF CONSULTATION: 08/24/2016 TIME: 4:16 p.m. I received a call from DARIUS Bennett at approximately 9:30 a.m. to discuss the patient's status. We talked about the primary diagnosis and whether or not a commitment should be done through the mental health channels or through dual diagnosis. We spoke again at approximately 3:30 and we decided that it was incumbent upon us to followthrough with the petition for involuntary commitment as the patient is still verbalizing that he is suicidal and that he is unable to arrest his addiction without professional intervention. I completed the commitment paperwork at my office at 4 o'clock and called to see if she was available to notarize at approximately 4:10 [address] was on her way to a and I had other commitments, so I called Aishwarya Knowles and asked if I could drop off the petition for involuntary commitment tomorrow, 08/25/2016. We agreed that that would be fine. I will drop off the commitment and get it notarized, 08/25/2016 around noon. FILIPE /[id number]
--- NOTE | 2016-08-24 16:59 | CONS ---
CONSULTING PHYSICIAN: Chad Rodriguez LAC DATE OF CONSULTATION: 08/24/2016 TIME: 03:42 p.m. The patient is a 45-year-old male, admitted to [facility] on 08/22/2016 after being found unresponsive in his hotel room by the EMS. He presents with polysubstance dependence with his admitting SHELLI 0.26 and is a dual diagnosis patient as he is currently entertaining suicidal ideation. An Alcohol and Drug consultation was requested by his medical treatment team at approximately 09:30 a.m. on 08/23/2016. I conducted a background research history and pulled the PDMR at my office at approximately 02:30 p.m. Arrived at [facility] at 3:50 p.m. on 08/23/2016 and consulted with DARIUS Thomason, and Dr. Arceo regarding the patient's status before entering the room. He was not able to enter the patient's room until 03:30 p.m. as the patient was indisposed. I concluded the patient interview at 04:35 p.m. on 08/23/2016. SOURCE OF INFORMATION: Hospital records, background research, and prescription drug monitoring report. HISTORY OF PRESENT ILLNESS: The patient reports that he was raised in [place], [place] by his biological parents who are now . He has 2 brothers and one is . He appears to harbor a great deal of guilt over his brother's . The patient reports that all the males in his family have been in the [employer] business and have sustain their employment using alcohol, cannabis, and methamphetamine. He states his pattern of polysubstance dependence does not the depart from that of his family. The patient reports that he obtained his GED at age 20 as he dropped out of school because of bullying by his fellow students. He states, "I was the red haired freckled kid and had to find people who would accept me, so I started to smoke and drink." He has been before at age 33 and the marriage lasted 3 years. He has 2 children from that marriage. However, he has not been a part of their lives. When asked why the marriage dissolved, he states "because of me... 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 There have been times because of his substance abuse that he has been homeless and lives off the streets. The first time was at age 19 to 20 and again during his late 20s, in his 30s, and off and on throughout his life up to 6 months ago. He is currently living in a hotel as he arrived in [place] approximately in 2012 and has been employed off and on. He worked for [employer] for about a year until he had a heart attack. Then he was employed until recently when he went to work for [employer]. His employment with [employer] is tenuous. Because of this incident, they brought him to the hospital today. Medical: The patient reports that he had a heart attack in September of 2014 and is concerned about his medical condition as he reports "because of my heart attack, my whole body shut down and I had liver failure." Mental health: The patient reports that most of all of his family suffers from depression. He has tried to commit suicide in the past. Last year, he OD'd on Ativan and this incident was intended to take his life as well. He states that he is still thinking about hurting himself and if he is discharged he may start drinking and try it again. He reports that much of his pain comes from his brother's , the of his parents as he was mad at God losing his first family, and he is currently heart broken over a woman whom he knows is in love with him but remains to another man. SUBSTANCE ABUSE: Tobacco: The patient reports he started smoking cigarettes at a young age. However, he quit smoking cold turkey in 2012. Alcohol: The patient reports he started drinking at age 11 and he drank every weekend while in school. He states he could drink whenever he wanted because his whole family drank. He would typically drink to intoxication, which could be anywhere from a case of beer to a bottle of liquor. He reports that he backed off alcohol during his 20s as he was more into methamphetamine and cannabis. During his 30s to the present, the patient reports maladaptive drinking up to a 1.75 of liquor a day. Since November of 2015, his pattern has been, wake up at 04:30 a.m., go to the liquor store at 06:00 a.m., by a tall can of beer and a pint of spice rum, go home, take a nap until 08:00 a.m., go to the liquor store and buy another tall can of beer and a pint of spice rum, go home, take a nap, and continue this routine at 10:00 a.m., noon 2 o'clock, 4 o'clock, 6 o'clock, etc. This pattern has made it difficult for him to sustain employment. However, he is able to maintain alertness while under the influence. This past week, he states he "just drank himself to a coma." As a result of his lifelong addiction to alcohol, he has lost his family, his home, and employment. He states there is a [facility] in [place] that he went to recently and was able to stay sober for about 8 weeks. However, he has been drinking since that time, to the present in the aforementioned pattern. Methamphetamine: The patient reports he started smoking and snorting methamphetamine in 1988. He began by using 3 to 4 days a week to daily use up to an 8 ball a day. He states he was a serious user and was able to stay up for months at a time. He supported his habit by dealing and stealing. In 2004, he went to treatment and was able to stay sober for short period of time. However since then, he has still been using when he gets the chance. His present love interest also uses methamphetamine and they started their relationship by him selling her "a little barrel charrer helper", in other words, a little bit of methamphetamine to help you do your house work. His last use of methamphetamine he reports was 75 days ago. Cannabis: The patient reports he started to smoke weed when he was in high school and smoked daily until 2013. He states that he gets smoking outside in a day which was typical. He says "I would wake up to a 6 foot bong for breakfast." He quit smoking in 2013. DIAGNOSES: 1. F10.20, alcohol use disorder, severe. 2. F10.229, alcohol intoxication. 3. F10.239, alcohol withdrawal without perceptual disturbance. 4. F17.200, tobacco use disorder, severe, in sustained full remission. 5. F12.20 cannabis use disorder, severe, in sustained full remission. 6. F15.20, amphetamine use disorder, severe. Methamphetamine type. ASAM DIMENSIONS: Dimension 1: Score 2. The patient has some difficulty tolerating and coping with withdrawal discomfort, intoxication may be severe but responds to support and treatment. Displays moderate signs and symptoms of moderate risk of severe withdrawal. Dimension 2: Score 1+. The patient tolerates and omer with physical discomfort. He is able to get the services he needs. He is reporting a heart condition. Dimension 3: Score 3. The patient displays a severe lack of impulse control and coping skills. He has frequent thoughts of suicide and is currently attempted to commit suicide. He seems to be severely impaired in significant life areas and is presenting his dual diagnosis. Dimension 4: Score 2+. The patient is verbalizing that he wants to quit his substance abuse. However, he is not been able to arrest his addiction without professional intervention. He is cooperative to the evaluation and is verbalizing that he is cooperative to treatment. He seems to be in the contemplative stage of change. Dimension 5: Score 3. The patient has little recognition and understanding of relapse and recidivism issues and displays high vulnerability for further substance use or mental health problems. Dimension 6: Score 4. The patient has intermittently been involved in employment. However, he cannot sustain that employment because of his substance abuse. He is currently living in a hotel; however, he has been homeless many times in his lifetime even up to 6 months ago. He seems to have a severe lack of social support and has a desperation about his future. ASSESSMENT SUMMARY: The patient appears to be a nice man, who has battled biologically driven polysubstance dependence his entire life. He has lost everything in his life because of his use family, home, and employment. He has a criminal record out of [place] secondary to his substance abuse. From his self report, he is having difficulty maintaining employment because of his addictions. He is tired from physical labor and concern for his health primarily as hard as he has had a severe heart attack in the past. However, he continues to use methamphetamine and alcohol despite his concerns. He is verbalizing that he plans to see government assistance and get on permanent medical or psychiatric disability. RECOMMENDATION: The patient meets ASAM criteria for level 3.7, medically monitored inpatient treatment program to address the presenting dual diagnosis. The petition for involuntary commitment will be executed on 08/24/2016 for the [facility]. I spoke with DARIUS Thomason, regarding the evaluation, and she will be coordinating the admission and transportation to the [facility]. FILIPE /[id number]
[2016-08-24] MEDS: Lisinopril 10 MG Tab PO SCH (20:08)
[2016-08-24] MEDS: Thiamine 100 MG Tab PO SCH (20:08)
[2016-08-24] MEDS: QUEtiapine 25 MG Tab PO SCH (20:08)
[2016-08-25] MEDS: cloNIDine 0.1 MG Tab PO SCH ×3 (01:25→17:00)
[2016-08-25] MEDS: Levothyroxine 25 MCG Tab PO SCH (06:22)
[2016-08-25] MEDS: Ferrous Sulfate 325 MG Tab PO SCH (06:22)
[2016-08-25] MEDS: Potassium Chloride 10% 20 MEQ/15 ML Soln 30 ML UD Cup PO SCH ×2 (08:07→20:15)
[2016-08-25] MEDS: FLUoxetine 20 MG Cap PO SCH (08:07)
[2016-08-25] MEDS: chlordiazePOXIDE 25 MG Cap PO SCH ×4 (08:08→20:15)
[2016-08-25] MEDS: Carvedilol 12.5 MG Tab PO SCH ×2 (08:08→20:15)
[2016-08-25] MEDS: Lisinopril 10 MG Tab PO SCH (08:08)
[2016-08-25] MEDS: Folic Acid 1 MG Tab PO SCH (08:08)
[2016-08-25] MEDS: Enoxaparin 40 MG/0.4 ML Syringe SUBCUT SCH (08:17)
--- NOTE | 2016-08-25 10:52 | PCM.PN ---
- General Info Date of Service: 08/25/16 Functional Status: Reports: pain controlled, tolerating diet, ambulating, urinating - Review of Systems General: Reports: No Symptoms HEENT: Reports: no symptoms Pulmonary: Reports: no symptoms Cardiovascular: Reports: No Symptoms Gastrointestinal: Reports: No symptoms Genitourinary: Reports: no symptoms Musculoskeletal: Reports: no symptoms Skin: Reports: no symptoms Neurological: Reports: No Symptoms Psychiatric: Reports: depression - Patient Data Vitals - most recent: Last Vital Signs Temp 36.6 C 08/25/16 07:46 Pulse 67 08/25/16 08:08 Resp 16 08/25/16 07:46 BP 118/69 08/25/16 08:08 Pulse Ox 6 L 08/25/16 07:46 Weight - most recent: 117.118 kg I&O - last 24 hours: Intake & Output 08/24/16 08/25/16 08/25/16 22:59 06:59 14:59 Intake Total 1150 400 720 Output Total 400 Balance 750 400 720 Lab Results last 24 hrs: Laboratory Results - last 24 hr 08/25/16 08/25/16 Range/Units 05:13 05:13 WBC 6.41 (4.23-9.07) K/mm3 RBC 4.67 (4.63-6.08) M/mm3 Hgb 9.3 L (13.7-17.5) gm/L Hct 32.7 L (40.1-51.0) % MCV 70.0 L (79.0-92.2) fl MCH 19.9 L (25.7-32.2) pg MCHC 28.4 L (32.2-35.5) g/dl RDW Std Deviation 43.9 (35.1-43.9) fL Plt Count 261 (163-337) K/mm3 MPV 11.2 (9.4-12.3) fl Neut % (Auto) 54.0 (34.0-67.9) % Lymph % (Auto) 30.9 (21.8-53.1) % [place] % (Auto) 9.7 (5.3-12.2) % Eos % (Auto) 4.8 (0.8-7.0) Baso % (Auto) 0.6 (0.1-1.2) % Neut # (Auto) 3.46 (1.78-5.38) K/mm3 Lymph # (Auto) 1.98 (1.32-3.57) K/mm3 [place] # (Auto) 0.62 (0.30-0.82) K/mm3 Eos # (Auto) 0.31 (0.04-0.54) K/mm3 Baso # (Auto) 0.04 (0.01-0.08) K/mm3 Manual Slide Review Abnormal smear Sodium 141 (136-145) mEq/L Potassium 4.1 (3.5-5.1) mEq/L Chloride 105 (98-107) mEq/L Carbon Dioxide 28 (21-32) mEq/L Anion Gap 12.1 (5-15) BUN 14 (7-18) mg/dL Creatinine 1.0 (0.7-1.3) mg/dL Est Cr Clr Drug Dosing 107.32 mL/min Estimated GFR (MDRD) > 60 (>60) mL/min BUN/Creatinine Ratio 14.0 (14-18) Glucose 90 (74-106) mg/dL Calcium 8.4 L (8.5-10.1) mg/dL Magnesium 2.0 (1.8-2.4) mg/dl Med Orders - Current: Current Medications Carvedilol (Coreg) 12.5 mg PO BID [facility] Last Admin: 08/25/16 08:08 Dose: 12.5 mg Chlordiazepoxide HCl (Librium) 25 mg PO QID [facility] Last Admin: 08/25/16 08:08 Dose: 25 mg Clonidine HCl (Catapres) 0.1 mg PO Q8H [facility] Last Admin: 08/25/16 08:02 Dose: Not Given Ferrous Sulfate (Ferrous Sulfate) 325 mg PO WITHBREAKFAST [facility] Last Admin: 08/25/16 06:22 Dose: 325 mg Fluoxetine HCl (Prozac) 20 mg PO DAILY [facility] Last Admin: 08/25/16 08:07 Dose: 20 mg Folic Acid (Folic Acid) 1 mg PO DAILY [facility] Last Admin: 08/25/16 08:08 Dose: 1 mg Haloperidol Lactate (Haldol) 2 mg IVPUSH Q8H PRN PRN Reason: Agitation Last Admin: 08/23/16 03:36 Dose: 2 mg Levothyroxine Sodium (Levothyroxine) 25 mcg PO ACBREAKFAST [facility] Last Admin: 08/25/16 06:22 Dose: 25 mcg Lisinopril (Prinivil) 5 mg PO DAILY [facility] Last Admin: 08/25/16 08:08 Dose: 5 mg Lorazepam (Ativan) 2 mg IVPUSH Q2H PRN PRN Reason: Anxiety Last Admin: 08/23/16 01:50 Dose: 2 mg Lorazepam (Ativan) 1 - 2 mg IVPUSH Q4H PRN; Protocol PRN Reason: Withdrawal Symptoms Lorazepam (Ativan) 1 mg PO Q4H PRN; Protocol PRN Reason: Withdrawal Symptoms Last Admin: 08/24/16 14:40 Dose: 1 mg Metoprolol Tartrate (Lopressor) 5 mg IVPUSH Q6H PRN PRN Reason: Tachycardia Potassium Chloride (Potassium Chloride) 40 meq PO BID [facility] Stop: 08/25/16 21:01 Last Admin: 08/25/16 08:07 Dose: 40 meq Quetiapine Fumarate (Seroquel) 50 mg PO BEDTIME [facility] Last Admin: 08/24/16 20:08 Dose: 50 mg Temazepam (Restoril) 30 mg PO BEDTIME PRN PRN Reason: Insomnia Last Admin: 08/24/16 21:53 Dose: 30 mg Thiamine HCl (Vitamin B-1) 100 mg PO BEDTIME [facility] Last Admin: 08/24/16 20:08 Dose: 100 mg Discontinued Medications Chlordiazepoxide HCl (Librium) 25 mg PO ONETIME ONE Stop: 08/23/16 01:41 Last Admin: 08/23/16 05:06 Dose: Not Given Enoxaparin Sodium (Lovenox) 40 mg SUBCUT DAILY [facility] Last Admin: 08/25/16 08:17 Dose: 40 mg Flumazenil (Romazicon) Confirm Administered Dose 0.5 mg .ROUTE .STK-MED ONE Stop: 08/22/16 20:55 Last Admin: 08/23/16 01:59 Dose: Not Given Flumazenil (Romazicon) 0.1 mg IVPUSH ONETIME ONE Stop: 08/22/16 21:04 Last Admin: 08/22/16 21:32 Dose: 0.1 mg Lactated Ringer's (Ringers, Lactated) 1,000 mls @ 125 mls/hr IV ONETIME ONE Stop: 08/23/16 05:13 Last Admin: 08/22/16 21:17 Dose: 125 mls/hr Magnesium Sulfate 2 gm/ Premix 50 mls @ 25 mls/hr IV ONETIME ONE Stop: 08/23/16 14:01 Last Admin: 08/23/16 12:37 Dose: 25 mls/hr Lorazepam (Ativan) Confirm Administered Dose 2 mg .ROUTE .STK-MED ONE Stop: 08/23/16 00:04 Last Admin: 08/23/16 00:03 Dose: 2 mg Metoprolol Tartrate (Lopressor) 25 mg PO BID [facility] Last Admin: 08/23/16 08:49 Dose: 25 mg Naloxone HCl (Narcan) Confirm Administered Dose 2 mg .ROUTE .STK-MED ONE Stop: 08/22/16 20:50 Last Admin: 08/23/16 01:59 Dose: Not Given Naloxone HCl (Narcan) 1 mg IVPUSH ONETIME ONE Stop: 08/22/16 21:04 Last Admin: 08/22/16 21:19 Dose: 1 mg Naloxone HCl (Narcan) 1 mg IVPUSH ONETIME ONE Stop: 08/22/16 21:06 Last Admin: 08/22/16 21:19 Dose: 1 mg Ondansetron HCl (Zofran) 4 mg IVPUSH ONETIME ONE Stop: 08/22/16 21:15 Last Admin: 08/22/16 21:17 Dose: 4 mg - Exam Quality Assessment: DVT prophylaxis General: alert, oriented, cooperative, no acute distress HEENT: Pupils equal, Pupils reactive, EOMI Neck: supple, trachea midline Lungs: Normal respiratory effort Cardiovascular: Regular Rate, Regular Rhythm Abdomen: bowel sounds present, soft, no tenderness, no distension (Male) Exam: Deferred Back Exam: Normal Inspection Extremities: normal pulses Skin: warm Neurological: normal gait, normal speech Psy/Mental Status: alert, anxious, depressed - Problem List & Annotations (1) Alcohol intoxication SNOMED Code(s): 20336568 Code(s): F10.929 - ALCOHOL USE, UNSPECIFIED WITH INTOXICATION, UNSPECIFIED Status: Acute Current Visit: Yes (2) Suicidal intent SNOMED Code(s): 853236082 Code(s): R45.851 - SUICIDAL IDEATIONS Status: Acute Current Visit: Yes (3) Anemia SNOMED Code(s): 683551165 Code(s): D64.9 - ANEMIA, UNSPECIFIED Status: Acute Current Visit: No Qualifiers: Anemia type: iron deficiency (4) GERD (gastroesophageal reflux disease) SNOMED Code(s): 545298205 Code(s): K21.9 - GASTRO-ESOPHAGEAL REFLUX DISEASE WITHOUT ESOPHAGITIS Status: Acute Current Visit: No (5) Hypertension SNOMED Code(s): 57697827 Code(s): I10 - ESSENTIAL (PRIMARY) HYPERTENSION Status: Acute Current Visit: No (6) Non-cardiac chest pain SNOMED Code(s): 039156901 Code(s): R07.89 - OTHER CHEST PAIN Status: Acute Current Visit: No (7) Depression SNOMED Code(s): 17224851 Code(s): F32.9 - MAJOR DEPRESSIVE DISORDER, SINGLE EPISODE, UNSPECIFIED Status: Acute Current Visit: Yes - Problem List Review Problem List Initiated/Reviewed/Updated: Yes - My Orders Last 24 Hours: My Active Orders 08/24/16 10:45 Potassium Chloride 40 meq PO BID 08/24/16 14:34 LORazepam [Ativan] 1 mg PO Q4H PRN 08/24/16 21:00 Lisinopril [Prinivil] 5 mg PO DAILY 08/25/16 09:55 Consult to Physician [CONS] Routine 08/25/16 09:56 Notify Provider Consults [RC] ASDIRECTED 08/25/16 10:07 Consult to Physician [CONS] Routine 08/25/16 10:09 Notify Provider Consults [RC] ASDIRECTED 08/25/16 Lunch Clear Liquid Diet [DIET] 08/26/16 05:00 BASIC METABOLIC PANEL,BMP [CHEM] DAILY CBC WITH AUTO DIFF [HEME] DAILY MAGNESIUM [CHEM] DAILY 08/27/16 05:00 BASIC METABOLIC PANEL,BMP [CHEM] DAILY CBC WITH AUTO DIFF [HEME] DAILY MAGNESIUM [CHEM] DAILY - Plan Plan:: Impression: Suicidal Ideation; ETOH abuse; substance abuse: Marijuana, Hashish, Methamphetamine Anxiety/Depression, unspecified Etoh acute intoxication, recent ETOH sobriety program, clean for 8 weeks Post code for LOC with response to medical RX; received Narcan and Flumazenil. 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 Chronic PEs CMP, nonischemic Query ID; query CHF GERD HTN Hypothyroidism Plan: [facility] assessment for [facility] today CIWA SA, IP treatment Psych, IP treatment Benzodazepine Clonidine Home meds GI/DVT prophylaxis Heme work up GI work up, per Dr Strauss EGD/Colonoscopy at 0730 on 08/26/16. Suicide precautions Correct electrolytes as needed 2D echo is pending.
--- NOTE | 2016-08-25 10:53 | PCM.CONSN ---
- General Info Date of Service: 08/25/16 Functional Status: Reports: pain controlled - Patient Data Vitals - most recent: Last Vital Signs Temp 97.8 F 08/25/16 07:46 Pulse 67 08/25/16 08:08 Resp 16 08/25/16 07:46 BP 118/69 08/25/16 08:08 Pulse Ox 6 L 08/25/16 07:46 Weight - most recent: 117.118 kg I&O - last 24 hours: Intake & Output 08/24/16 08/25/16 08/25/16 23:59 07:59 15:59 Intake Total 910 400 720 Output Total 400 Balance 510 400 720 Lab Results last 24 hrs: Laboratory Results - last 24 hr 08/25/16 08/25/16 Range/Units 05:13 05:13 WBC 6.41 (4.23-9.07) K/mm3 RBC 4.67 (4.63-6.08) M/mm3 Hgb 9.3 L (13.7-17.5) gm/L Hct 32.7 L (40.1-51.0) % MCV 70.0 L (79.0-92.2) fl MCH 19.9 L (25.7-32.2) pg MCHC 28.4 L (32.2-35.5) g/dl RDW Std Deviation 43.9 (35.1-43.9) fL Plt Count 261 (163-337) K/mm3 MPV 11.2 (9.4-12.3) fl Neut % (Auto) 54.0 (34.0-67.9) % Lymph % (Auto) 30.9 (21.8-53.1) % [place] % (Auto) 9.7 (5.3-12.2) % Eos % (Auto) 4.8 (0.8-7.0) Baso % (Auto) 0.6 (0.1-1.2) % Neut # (Auto) 3.46 (1.78-5.38) K/mm3 Lymph # (Auto) 1.98 (1.32-3.57) K/mm3 [place] # (Auto) 0.62 (0.30-0.82) K/mm3 Eos # (Auto) 0.31 (0.04-0.54) K/mm3 Baso # (Auto) 0.04 (0.01-0.08) K/mm3 Manual Slide Review Abnormal smear Sodium 141 (136-145) mEq/L Potassium 4.1 (3.5-5.1) mEq/L Chloride 105 (98-107) mEq/L Carbon Dioxide 28 (21-32) mEq/L Anion Gap 12.1 (5-15) BUN 14 (7-18) mg/dL Creatinine 1.0 (0.7-1.3) mg/dL Est Cr Clr Drug Dosing 107.32 mL/min Estimated GFR (MDRD) > 60 (>60) mL/min BUN/Creatinine Ratio 14.0 (14-18) Glucose 90 (74-106) mg/dL Calcium 8.4 L (8.5-10.1) mg/dL Magnesium 2.0 (1.8-2.4) mg/dl Med Orders - Current: Current Medications Carvedilol (Coreg) 12.5 mg PO BID [facility] Last Admin: 08/25/16 08:08 Dose: 12.5 mg Chlordiazepoxide HCl (Librium) 25 mg PO QID [facility] Last Admin: 08/25/16 08:08 Dose: 25 mg Clonidine HCl (Catapres) 0.1 mg PO Q8H [facility] Last Admin: 08/25/16 08:02 Dose: Not Given Ferrous Sulfate (Ferrous Sulfate) 325 mg PO WITHBREAKFAST [facility] Last Admin: 08/25/16 06:22 Dose: 325 mg Fluoxetine HCl (Prozac) 20 mg PO DAILY [facility] Last Admin: 08/25/16 08:07 Dose: 20 mg Folic Acid (Folic Acid) 1 mg PO DAILY [facility] Last Admin: 08/25/16 08:08 Dose: 1 mg Haloperidol Lactate (Haldol) 2 mg IVPUSH Q8H PRN PRN Reason: Agitation Last Admin: 08/23/16 03:36 Dose: 2 mg Levothyroxine Sodium (Levothyroxine) 25 mcg PO ACBREAKFAST [facility] Last Admin: 08/25/16 06:22 Dose: 25 mcg Lisinopril (Prinivil) 5 mg PO DAILY [facility] Last Admin: 08/25/16 08:08 Dose: 5 mg Lorazepam (Ativan) 2 mg IVPUSH Q2H PRN PRN Reason: Anxiety Last Admin: 08/23/16 01:50 Dose: 2 mg Lorazepam (Ativan) 1 - 2 mg IVPUSH Q4H PRN; Protocol PRN Reason: Withdrawal Symptoms Lorazepam (Ativan) 1 mg PO Q4H PRN; Protocol PRN Reason: Withdrawal Symptoms Last Admin: 08/24/16 14:40 Dose: 1 mg Metoprolol Tartrate (Lopressor) 5 mg IVPUSH Q6H PRN PRN Reason: Tachycardia Potassium Chloride (Potassium Chloride) 40 meq PO BID [facility] Stop: 08/25/16 21:01 Last Admin: 08/25/16 08:07 Dose: 40 meq Quetiapine Fumarate (Seroquel) 50 mg PO BEDTIME [facility] Last Admin: 08/24/16 20:08 Dose: 50 mg Temazepam (Restoril) 30 mg PO BEDTIME PRN PRN Reason: Insomnia Last Admin: 08/24/16 21:53 Dose: 30 mg Thiamine HCl (Vitamin B-1) 100 mg PO BEDTIME [facility] Last Admin: 08/24/16 20:08 Dose: 100 mg Discontinued Medications Chlordiazepoxide HCl (Librium) 25 mg PO ONETIME ONE Stop: 08/23/16 01:41 Last Admin: 08/23/16 05:06 Dose: Not Given Enoxaparin Sodium (Lovenox) 40 mg SUBCUT DAILY [facility] Last Admin: 08/25/16 08:17 Dose: 40 mg Flumazenil (Romazicon) Confirm Administered Dose 0.5 mg .ROUTE .STK-MED ONE Stop: 08/22/16 20:55 Last Admin: 08/23/16 01:59 Dose: Not Given Flumazenil (Romazicon) 0.1 mg IVPUSH ONETIME ONE Stop: 08/22/16 21:04 Last Admin: 08/22/16 21:32 Dose: 0.1 mg Lactated Ringer's (Ringers, Lactated) 1,000 mls @ 125 mls/hr IV ONETIME ONE Stop: 08/23/16 05:13 Last Admin: 08/22/16 21:17 Dose: 125 mls/hr Magnesium Sulfate 2 gm/ Premix 50 mls @ 25 mls/hr IV ONETIME ONE Stop: 08/23/16 14:01 Last Admin: 08/23/16 12:37 Dose: 25 mls/hr Lorazepam (Ativan) Confirm Administered Dose 2 mg .ROUTE .STK-MED ONE Stop: 08/23/16 00:04 Last Admin: 08/23/16 00:03 Dose: 2 mg Metoprolol Tartrate (Lopressor) 25 mg PO BID [facility] Last Admin: 08/23/16 08:49 Dose: 25 mg Naloxone HCl (Narcan) Confirm Administered Dose 2 mg .ROUTE .STK-MED ONE Stop: 08/22/16 20:50 Last Admin: 08/23/16 01:59 Dose: Not Given Naloxone HCl (Narcan) 1 mg IVPUSH ONETIME ONE Stop: 08/22/16 21:04 Last Admin: 08/22/16 21:19 Dose: 1 mg Naloxone HCl (Narcan) 1 mg IVPUSH ONETIME ONE Stop: 08/22/16 21:06 Last Admin: 08/22/16 21:19 Dose: 1 mg Ondansetron HCl (Zofran) 4 mg IVPUSH ONETIME ONE Stop: 08/22/16 21:15 Last Admin: 08/22/16 21:17 Dose: 4 mg Consult PN Assessment/Plan Procedures: Procedures ASSAY OF IRON (08/16/16) ASSAY OF MAGNESIUM (08/16/16) ASSAY OF NATRIURETIC PEPTIDE (08/16/16) ASSAY OF TRANSFERRIN (08/16/16) ASSAY OF TROPONIN QUANT (08/16/16) C-REACTIVE PROTEIN (08/16/16) CHEST X-RAY 1 VIEW FRONTAL (08/16/16) COMPLETE CBC W/AUTO DIFF WBC (08/16/16) COMPREHEN METABOLIC PANEL (08/16/16) CREATINE MB FRACTION (08/16/16) ELECTROCARDIOGRAM TRACING (08/16/16) EMERGENCY DEPT VISIT (08/16/16) EMERGENCY DEPT VISIT (10/02/14) FIBRIN DEGRADATION QUANT (08/16/16) GLYCOSYLATED HEMOGLOBIN TEST (09/26/14) HYDRATE IV INFUSION ADD-ON (08/16/16) LACTATE (LD) (LDH) ENZYME (08/16/16) PROTHROMBIN TIME (08/16/16) ROUTINE VENIPUNCTURE (08/16/16) THER/PROPH/DIAG INJ IV PUSH (08/16/16) TX/PRO/DX INJ NEW DRUG ADDON (08/16/16) Problem List Initiated/Reviewed/Updated: Yes My Orders last 24 hours: surgical consults dictated [facility]
--- NOTE | 2016-08-25 13:03 | PCM.PREANE ---
Preanesthetic Assessment - Procedure Proposed Procedure: EGD/Colonoscopy - Anesthesia/Transfusion/Family Hx Anesthesia History: Prior Anesthesia Without Reaction Family History of Anesthesia Reaction: No Transfusion History: Prior Transfusion Without Reaction (Plasma) Intubation History: Unknown - Review of Systems General: Malaise Pulmonary: No Symptoms Cardiovascular: Other (CHF, DVT, cardiomegaly, CA in 2015, HTN) Gastrointestinal: Diarrhea, Melena, Other (GERD) Neurological: Tingling (Occasionally in BLE) Other: Reports: Diabetes (Pre-diabetic), Thyroid Problems (Hypothyroidism), Depression (Suicidal ideation), Anxiety - Physical Assessment NPO Status Date: 08/26/16 NPO Status Time: 00:00 Pulse: 67 O2 Sat by Pulse Oximetry: 98 Respiratory Rate: 16 Blood Pressure: 118/69 Vital Signs: Last Vital Signs Temp 36.3 C 08/25/16 12:00 Pulse 67 08/25/16 08:08 Resp 16 08/25/16 12:00 BP 132/91 H 08/25/16 12:00 Pulse Ox 98 08/25/16 12:00 Height: 1.88 m Weight: 117.118 kg ASA Class: 3 Mental Status: Alert & Oriented x3 Airway Class: Mallampati = 2 Dentition: Reports: Broken Tooth/Teeth (Generalized poor dentition) Thyro-Mental Finger Breadths: 3 Mouth Opening Finger Breadths: 3 ROM/Head Extension: Full Lungs: Clear to auscultation, Normal respiratory effort Cardiovascular: Regular Rate, Regular Rhythm - Lab Values: Laboratory Last Values WBC 6.41 K/mm3 (4.23-9.07) 08/25/16 05:13 RBC 4.67 M/mm3 (4.63-6.08) 08/25/16 05:13 Hgb 9.3 gm/L (13.7-17.5) L 08/25/16 05:13 Hct 32.7 % (40.1-51.0) L 08/25/16 05:13 MCV 70.0 fl (79.0-92.2) L 08/25/16 05:13 MCH 19.9 pg (25.7-32.2) L 08/25/16 05:13 MCHC 28.4 g/dl (32.2-35.5) L 08/25/16 05:13 RDW Std Deviation 43.9 fL (35.1-43.9) 08/25/16 05:13 Plt Count 261 K/mm3 (163-337) 08/25/16 05:13 MPV 11.2 fl (9.4-12.3) 08/25/16 05:13 Neut % (Auto) 54.0 % (34.0-67.9) 08/25/16 05:13 Lymph % (Auto) 30.9 % (21.8-53.1) 08/25/16 05:13 [place] % (Auto) 9.7 % (5.3-12.2) 08/25/16 05:13 Eos % (Auto) 4.8 (0.8-7.0) 08/25/16 05:13 Baso % (Auto) 0.6 % (0.1-1.2) 08/25/16 05:13 Neut # (Auto) 3.46 K/mm3 (1.78-5.38) 08/25/16 05:13 Lymph # (Auto) 1.98 K/mm3 (1.32-3.57) 08/25/16 05:13 [place] # (Auto) 0.62 K/mm3 (0.30-0.82) 08/25/16 05:13 Eos # (Auto) 0.31 K/mm3 (0.04-0.54) 08/25/16 05:13 Baso # (Auto) 0.04 K/mm3 (0.01-0.08) 08/25/16 05:13 Neutrophils % (Manual) 36 % (40-60) L 08/22/16 20:52 Band Neutrophils % 1 % (0-10) 08/22/16 20:52 Lymphocytes % (Manual) 51 % (20-40) H 08/22/16 20:52 Atypical Lymphs % 0 % 08/22/16 20:52 Monocytes % (Manual) 8 % (2-10) 08/22/16 20:52 Eosinophils % (Manual) 3 % (0.8-7.0) 08/22/16 20:52 Basophils % (Manual) 1 (0.2-1.2) 08/22/16 20:52 Manual Slide Review Abnormal smear 08/25/16 05:13 Platelet Estimate Adequate 08/22/16 20:52 Polychromasia 1+ slight 08/22/16 20:52 Hypochromasia 2+ moderate 08/22/16 20:52 Anisocytosis 1+ slight 08/22/16 20:52 Microcytosis 1+ slight 08/22/16 20:52 RBC Morph Comment Not Reportable 08/22/16 20:52 PT 11.0 SECONDS (8.0-13.0) 08/22/16 20:52 INR 1.01 08/22/16 20:52 APTT 23 SECONDS (22-36) 08/22/16 20:52 Puncture Site Rt radial 08/22/16 21:09 ABG pH 7.48 (7.35-7.45) H 08/22/16 21:09 ABG pCO2 30.7 mmHg (35.0-45.0) L 08/22/16 21:09 ABG pO2 88.0 mmHg (80.0-100.0) 08/22/16 21:09 ABG HCO3 22.8 meq/L (22.0-26.0) 08/22/16 21:09 ABG O2 Saturation 98.4 % (96.0-97.0) H 08/22/16 21:09 ABG Base Excess 0.2 (-2-2.0) 08/22/16 21:09 A-a Gradient 8 mmHg 08/22/16 21:09 O2 Delivery Device Room air 08/22/16 21:09 FiO2 21.00 % (21.00-100.00) 08/22/16 21:09 Sodium 141 mEq/L (136-145) 08/25/16 05:13 Potassium 4.1 mEq/L (3.5-5.1) 08/25/16 05:13 Chloride 105 mEq/L (98-107) 08/25/16 05:13 Carbon Dioxide 28 mEq/L (21-32) 08/25/16 05:13 Anion Gap 12.1 (5-15) 08/25/16 05:13 BUN 14 mg/dL (7-18) 08/25/16 05:13 Creatinine 1.0 mg/dL (0.7-1.3) 08/25/16 05:13 Est Cr Clr Drug Dosing 107.32 mL/min 08/25/16 05:13 Estimated GFR (MDRD) > 60 mL/min (>60) 08/25/16 05:13 BUN/Creatinine Ratio 14.0 (14-18) 08/25/16 05:13 Glucose 90 mg/dL (74-106) 08/25/16 05:13 Lactic Acid 1.1 mmol/L (0.4-2.0) 08/23/16 05:33 Calcium 8.4 mg/dL (8.5-10.1) L 08/25/16 05:13 Magnesium 2.0 mg/dl (1.8-2.4) 08/25/16 05:13 Total Bilirubin 0.3 mg/dL (0.2-1.0) 08/23/16 05:33 AST 12 U/L (15-37) L 08/23/16 05:33 ALT 24 U/L (16-63) 08/23/16 05:33 Alkaline Phosphatase 64 U/L (46-116) 08/23/16 05:33 Troponin I < 0.017 ng/mL (0.00-0.056) 08/22/16 20:52 B-Natriuretic Peptide 171 pg/mL (0-100) H 08/22/16 20:52 Total Protein 6.2 g/dl (6.4-8.2) L 08/23/16 05:33 Albumin 2.8 g/dl (3.4-5.0) L 08/23/16 05:33 Globulin 3.4 gm/dL 08/23/16 05:33 Albumin/Globulin Ratio 0.8 (1-2) L 08/23/16 05:33 TSH 3rd Generation 1.657 uIU/mL (0.358-3.74) 08/22/16 20:52 Urine Color Yellow (Yellow) 08/22/16 20:52 Urine Appearance Clear (Clear) 08/22/16 20:52 Urine pH 6.0 (5.0-8.0) 08/22/16 20:52 Ur Specific [place] 1.015 (1.005-1.030) 08/22/16 20:52 Urine Protein Negative (Negative) 08/22/16 20:52 Urine Glucose (UA) Negative (Negative) 08/22/16 20:52 Urine Ketones Negative (Negative) 08/22/16 20:52 Urine Occult Blood Negative (Negative) 08/22/16 20:52 Urine Nitrite Negative (Negative) 08/22/16 20:52 Urine Bilirubin Negative (Negative) 08/22/16 20:52 Urine Urobilinogen 0.2 (0.2-1.0) 08/22/16 20:52 Ur Leukocyte Esterase Negative (Negative) 08/22/16 20:52 Salicylates 0.7 mg/dL (2.8-20) L 08/22/16 20:52 Urine Opiates Screen Negative (NEGATIVE) 08/22/16 21:02 Ur Buprenorphine Scrn Negative (NEGATIVE) 08/22/16 21:02 Ur Oxycodone Screen Negative (NEGATIVE) 08/22/16 21:02 Urine Methadone Screen Negative (NEGATIVE) 08/22/16 21:02 Ur Propoxyphene Screen Negative (NEGATIVE) 08/22/16 21:02 Acetaminophen 0 ug/mL (10-30) L 08/22/16 20:52 Ur Barbiturates Screen Negative (NEGATIVE) 08/22/16 21:02 Ur Tricyclics Screen Negative (NEGATIVE) 08/22/16 21:02 Ur Phencyclidine Scrn Negative (NEGATIVE) 08/22/16 21:02 Ur Amphetamine Screen Negative (NEGATIVE) 08/22/16 21:02 U Methamphetamines Scrn Negative (NEGATIVE) 08/22/16 21:02 U Benzodiazepines Scrn Negative (NEGATIVE) 08/22/16 21:02 U Cocaine Metab Screen Negative (NEGATIVE) 08/22/16 21:02 U Marijuana (THC) Screen Negative (NEGATIVE) 08/22/16 21:02 Ethyl Alcohol 0.26 gm% (0.00) 08/22/16 20:52 - Allergies Allergies/Adverse Reactions: Allergies Allergy/AdvReac Type Severity Reaction Status Date / Time No Known Allergies Allergy Unverified 08/22/16 21:10 - Blood Blood Available: No Product(s) Available: None - Anesthesia Plan Pre-Op Medication Ordered: None - Acknowledgements Anesthesia Type Planned: MAC Pt an Appropriate Candidate for the Planned Anesthesia: Yes Alternatives and Risks of Anesthesia Discussed w Pt/Guardian: Yes Pt/Guardian Understands and Agrees with Anesthesia Plan: Yes PreAnesthesia Questionnaire HEENT History: Reports: Impaired Vision Other HEENT History: wear eyeglasses Cardiovascular History: Reports: Blood Clots/VTE/DVT, Hypertension, CA Other Cardiovascular History: cardiomegally. Respiratory History: Reports: Other (See Below) Gastrointestinal History: Reports: GERD, Hiatal Hernia Genitourinary History: Reports: Renal Disease Musculoskeletal History: Reports: Fracture, Other (See Below) Other Musculoskeletal History: -1988, shoulder surgery Neurological History: Reports: Concussion Other Neuro History: Winter 2013 Psychiatric History: Reports: Addiction, Anxiety, Depression, Suicidal Ideation Other Psychiatric History: recovering alcoholic Endocrine/Metabolic History: Reports: Hypothyroidism Other Endocrine/Metabolic History: pre diabetic Hematologic History: Reports: Other (See Below) Other Hematologic History: plasma transfusions prior to GB surgery as was on Coumadin at that time. - Infectious Disease History Infectious Disease History: Reports: Shingles - Past Surgical History HEENT Surgical History: Reports: Tonsillectomy - SUBSTANCE USE Smoking Status *Q: Former Smoker (Quit 14 years ago) Tobacco Use Within Last Twelve Months: Cigarettes Second Hand Smoke Exposure: No Days Per Week of Alcohol Use: 7 Number of Drinks Per Day: 8 Total Drinks Per Week: 56 Date of Last Drink: 08/22/16 Recreational Drug Use History: No Recreational Drug Type: Reports: Marijuana/Hashish, Methamphetamine (Last use 3 months ago) - HOME MEDS Home Medications: Home Meds Omeprazole [Prilosec] 20 mg PO DAILY 10/02/14 [History] Carvedilol 6.25 mg PO DAILY 08/16/16 [History] Furosemide [Lasix] 20 mg PO DAILY 08/16/16 [History] Levothyroxine 25 mcg PO DAILY 08/16/16 [History] Lisinopril 10 mg PO DAILY 08/16/16 [History] Warfarin [Coumadin] 2.5 mg PO SUTUTHSA 08/16/16 [History] Warfarin [Coumadin] 5 mg PO MOWEFR 08/16/16 [History] - CURRENT (IN HOUSE) MEDS Current Meds: Current Medications Carvedilol (Coreg) 12.5 mg PO BID [facility] Last Admin: 08/25/16 08:08 Dose: 12.5 mg Chlordiazepoxide HCl (Librium) 25 mg PO QID [facility] Last Admin: 08/25/16 12:21 Dose: 25 mg Clonidine HCl (Catapres) 0.1 mg PO Q8H [facility] Last Admin: 08/25/16 08:02 Dose: Not Given Ferrous Sulfate (Ferrous Sulfate) 325 mg PO WITHBREAKFAST [facility] Last Admin: 08/25/16 06:22 Dose: 325 mg Fluoxetine HCl (Prozac) 20 mg PO DAILY [facility] Last Admin: 08/25/16 08:07 Dose: 20 mg Folic Acid (Folic Acid) 1 mg PO DAILY [facility] Last Admin: 08/25/16 08:08 Dose: 1 mg Haloperidol Lactate (Haldol) 2 mg IVPUSH Q8H PRN PRN Reason: Agitation Last Admin: 08/23/16 03:36 Dose: 2 mg Lactated Ringer's (Ringers, Lactated) 1,000 mls @ 125 mls/hr IV ASDIRECTED [facility] Stop: 08/26/16 23:00 Levothyroxine Sodium (Levothyroxine) 25 mcg PO ACBREAKFAST [facility] Last Admin: 08/25/16 06:22 Dose: 25 mcg Lidocaine/Sodium Bicarbonate (Buffered Lidocaine 1% In Ns 8.4%) 0.25 ml IV ONETIME PRN PRN Reason: Prior to IV Start Stop: 08/26/16 18:00 Lisinopril (Prinivil) 5 mg PO DAILY [facility] Last Admin: 08/25/16 08:08 Dose: 5 mg Lorazepam (Ativan) 2 mg IVPUSH Q2H PRN PRN Reason: Anxiety Last Admin: 08/23/16 01:50 Dose: 2 mg Lorazepam (Ativan) 1 - 2 mg IVPUSH Q4H PRN; Protocol PRN Reason: Withdrawal Symptoms Lorazepam (Ativan) 1 mg PO Q4H PRN; Protocol PRN Reason: Withdrawal Symptoms Last Admin: 08/24/16 14:40 Dose: 1 mg Metoprolol Tartrate (Lopressor) 5 mg IVPUSH Q6H PRN PRN Reason: Tachycardia Polyethylene Glycol/Electrolytes (Golytely) 4,000 ml PO ONETIME ONE Stop: 08/25/16 17:01 Potassium Chloride (Potassium Chloride) 40 meq PO BID [facility] Stop: 08/25/16 21:01 Last Admin: 08/25/16 08:07 Dose: 40 meq Quetiapine Fumarate (Seroquel) 50 mg PO BEDTIME [facility] Last Admin: 08/24/16 20:08 Dose: 50 mg Sodium Chloride (Saline Flush) 10 ml FLUSH ASDIRECTED PRN PRN Reason: Keep Vein Open Stop: 08/26/16 18:00 Temazepam (Restoril) 30 mg PO BEDTIME PRN PRN Reason: Insomnia Last Admin: 08/24/16 21:53 Dose: 30 mg Thiamine HCl (Vitamin B-1) 100 mg PO BEDTIME [facility] Last Admin: 08/24/16 20:08 Dose: 100 mg Discontinued Medications Chlordiazepoxide HCl (Librium) 25 mg PO ONETIME ONE Stop: 08/23/16 01:41 Last Admin: 08/23/16 05:06 Dose: Not Given Enoxaparin Sodium (Lovenox) 40 mg SUBCUT DAILY [facility] Last Admin: 08/25/16 08:17 Dose: 40 mg Flumazenil (Romazicon) Confirm Administered Dose 0.5 mg .ROUTE .STK-MED ONE Stop: 08/22/16 20:55 Last Admin: 08/23/16 01:59 Dose: Not Given Flumazenil (Romazicon) 0.1 mg IVPUSH ONETIME ONE Stop: 08/22/16 21:04 Last Admin: 08/22/16 21:32 Dose: 0.1 mg Lactated Ringer's (Ringers, Lactated) 1,000 mls @ 125 mls/hr IV ONETIME ONE Stop: 08/23/16 05:13 Last Admin: 08/22/16 21:17 Dose: 125 mls/hr Magnesium Sulfate 2 gm/ Premix 50 mls @ 25 mls/hr IV ONETIME ONE Stop: 08/23/16 14:01 Last Admin: 08/23/16 12:37 Dose: 25 mls/hr Lorazepam (Ativan) Confirm Administered Dose 2 mg .ROUTE .STK-MED ONE Stop: 08/23/16 00:04 Last Admin: 08/23/16 00:03 Dose: 2 mg Metoprolol Tartrate (Lopressor) 25 mg PO BID [facility] Last Admin: 08/23/16 08:49 Dose: 25 mg Naloxone HCl (Narcan) Confirm Administered Dose 2 mg .ROUTE .STK-MED ONE Stop: 08/22/16 20:50 Last Admin: 08/23/16 01:59 Dose: Not Given Naloxone HCl (Narcan) 1 mg IVPUSH ONETIME ONE Stop: 08/22/16 21:04 Last Admin: 08/22/16 21:19 Dose: 1 mg Naloxone HCl (Narcan) 1 mg IVPUSH ONETIME ONE Stop: 08/22/16 21:06 Last Admin: 08/22/16 21:19 Dose: 1 mg Ondansetron HCl (Zofran) 4 mg IVPUSH ONETIME ONE Stop: 08/22/16 21:15 Last Admin: 08/22/16 21:17 Dose: 4 mg
[2016-08-25] MEDS ORDERED: Polyethylene Glycol/Electrolytes 4,000 ML Bottle PO ONE (17:00)
[2016-08-25] MEDS: Thiamine 100 MG Tab PO SCH (20:15)
[2016-08-25] MEDS: QUEtiapine 25 MG Tab PO SCH (20:15)
[2016-08-26] MEDS ORDERED: Sodium Chloride 0.9% 10 ML Syringe FLUSH PRN (00:01)
[2016-08-26] MEDS ORDERED: Lactated Ringers 1,000 ML IV SCH (00:01)
[2016-08-26] MEDS ORDERED: Lidocaine 1%/Sod Bicarbonate in NS 8.4% 1 ML Syringe IV PRN (00:01)
[2016-08-26] MEDS: cloNIDine 0.1 MG Tab PO SCH ×2 (01:19→09:36)
[2016-08-26] MEDS ORDERED: Lidocaine 1% 6 ML ONE (06:55)
[2016-08-26] MEDS ORDERED: Lactated Ringers 1,000 ML ONE (06:55)
[2016-08-26] MEDS ORDERED: Propofol 200 MG/20 ML SDV ONE ×2 (06:56→08:17)
[2016-08-26] MEDS ORDERED: fentaNYL 100 MCG/2 ML SDV ONE (06:56)
[2016-08-26] MEDS ORDERED: Midazolam 1 MG/ML 2 ML SDV ONE (06:57)
[2016-08-26] MEDS ORDERED: ePHEDrine/Normal Saline 25 MG/5 ML Syringe ONE (07:58)
--- NOTE | 2016-08-26 08:20 | PCM.OPNOTE ---
- General Post-Op/Procedure Note Date of Surgery/Procedure: 08/26/16 Operative Procedure(s): EGD/colonoscopy with polypectomy Findings: nor source of bleeding from colon or stomach subcetimeter polyp removed from upper rectum Pre Op Diagnosis: gi bleeding Post-Op Diagnosis: Same Primary Surgeon: Baltazar Strauss EBL in mLs: 0 Complications: None Condition: Good Free Text/Narrative:: Intake & Output 08/25/16 08/26/16 08/26/16 23:59 07:59 15:59 Intake Total 680 1645 Output Total 200 600 Balance 480 9255
[2016-08-26] MEDS ORDERED: Atropine 0.4 MG/ML SDV ONE (08:25)
[2016-08-26] MEDS: Lisinopril 10 MG Tab PO SCH (09:36)
[2016-08-26] MEDS: Levothyroxine 25 MCG Tab PO SCH (09:54)
[2016-08-26] MEDS: Ferrous Sulfate 325 MG Tab PO SCH (09:55)
[2016-08-26] MEDS: chlordiazePOXIDE 25 MG Cap PO SCH ×2 (09:55→20:51)
[2016-08-26] MEDS: Folic Acid 1 MG Tab PO SCH (09:55)
[2016-08-26] MEDS: FLUoxetine 20 MG Cap PO SCH (09:55)
[2016-08-26] MEDS: Carvedilol 12.5 MG Tab PO SCH ×2 (10:01→20:52)
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
--- NOTE | 2016-08-26 11:50 | PCM.PN ---
<Katie Mayberry M - Last Filed: 08/26/16 11:44> - General Info Date of Service: 08/26/16 Admission Dx/Problem (Free Text): Alcohol withdrawl, suicidal, anemia Patient for EGD/Colonoscopy with Dr. Strauss this morning. Awaiting final reports from Dr Strauss but verbal is that EGD was normal, colonoscopy with one polyp removed. Plans were for patient to DC this afternoon to [facility] with legal executive assistant's transport however, upon my discussion with Dr. Child at [facility], there is currently no bed availability, likely until early next week. Patient continues to be with suicidal thoughts; continues on 1:1 cares and suicide precautions. Functional Status: Reports: pain controlled, tolerating diet (advanced to heart healthy diet after being NPO overnight ), ambulating, urinating. Denies: new symptoms - Review of Systems General: Denies: Fever HEENT: Denies: headaches Pulmonary: Reports: no symptoms. Denies: shortness of breath Cardiovascular: Reports: No Symptoms. Denies: Chest Pain Gastrointestinal: Reports: No symptoms Genitourinary: Reports: no symptoms Neurological: Reports: No Symptoms Psychiatric: Reports: suicidal ideation - Patient Data Vitals - most recent: Last Vital Signs Temp 97.3 F 08/26/16 08:26 Pulse 63 08/26/16 09:47 Resp 14 08/26/16 08:26 BP 110/73 08/26/16 11:00 Pulse Ox 97 08/26/16 09:47 Weight - most recent: 114.305 kg I&O - last 24 hours: Intake & Output 08/25/16 08/26/16 08/26/16 22:59 06:59 14:59 Intake Total 1810 725 920 Output Total 200 600 Balance 1610 125 920 Lab Results last 24 hrs: Laboratory Results - last 24 hr 08/26/16 08/26/16 Range/Units 05:50 05:50 WBC 7.28 (4.23-9.07) K/mm3 RBC 5.01 (4.63-6.08) M/mm3 Hgb 10.0 L (13.7-17.5) gm/L Hct 34.9 L (40.1-51.0) % MCV 69.7 L (79.0-92.2) fl MCH 20.0 L (25.7-32.2) pg MCHC 28.7 L (32.2-35.5) g/dl RDW Std Deviation 44.8 H (35.1-43.9) fL Plt Count 243 (163-337) K/mm3 MPV 11.2 (9.4-12.3) fl Neut % (Auto) 62.0 (34.0-67.9) % Lymph % (Auto) 23.9 (21.8-53.1) % [place] % (Auto) 9.1 (5.3-12.2) % Eos % (Auto) 4.4 (0.8-7.0) Baso % (Auto) 0.5 (0.1-1.2) % Neut # (Auto) 4.51 (1.78-5.38) K/mm3 Lymph # (Auto) 1.74 (1.32-3.57) K/mm3 [place] # (Auto) 0.66 (0.30-0.82) K/mm3 Eos # (Auto) 0.32 (0.04-0.54) K/mm3 Baso # (Auto) 0.04 (0.01-0.08) K/mm3 Manual Slide Review Abnormal smear Sodium 143 (136-145) mEq/L Potassium 4.1 (3.5-5.1) mEq/L Chloride 107 (98-107) mEq/L Carbon Dioxide 26 (21-32) mEq/L Anion Gap 14.1 (5-15) BUN 9 (7-18) mg/dL Creatinine 1.0 (0.7-1.3) mg/dL Est Cr Clr Drug Dosing 107.32 mL/min Estimated GFR (MDRD) > 60 (>60) mL/min BUN/Creatinine Ratio 9.0 L (14-18) Glucose 83 (74-106) mg/dL Calcium 8.4 L (8.5-10.1) mg/dL Magnesium 2.0 (1.8-2.4) mg/dl Med Orders - Current: Current Medications Carvedilol (Coreg) 12.5 mg PO BID [facility] Last Admin: 08/26/16 10:01 Dose: Not Given Chlordiazepoxide HCl (Librium) 25 mg PO QID [facility] Last Admin: 08/26/16 09:55 Dose: 25 mg Ferrous Sulfate (Ferrous Sulfate) 325 mg PO WITHBREAKFAST [facility] Last Admin: 08/26/16 09:55 Dose: 325 mg Fluoxetine HCl (Prozac) 20 mg PO DAILY [facility] Last Admin: 08/26/16 09:55 Dose: 20 mg Folic Acid (Folic Acid) 1 mg PO DAILY [facility] Last Admin: 08/26/16 09:55 Dose: 1 mg Haloperidol Lactate (Haldol) 2 mg IVPUSH Q8H PRN PRN Reason: Agitation Last Admin: 08/23/16 03:36 Dose: 2 mg Lactated Ringer's (Ringers, Lactated) 1,000 mls @ 125 mls/hr IV ASDIRECTED [facility] Stop: 08/26/16 23:00 Levothyroxine Sodium (Levothyroxine) 25 mcg PO ACBREAKFAST [facility] Last Admin: 08/26/16 09:54 Dose: 25 mcg Lidocaine/Sodium Bicarbonate (Buffered Lidocaine 1% In Ns 8.4%) 0.25 ml IV ONETIME PRN PRN Reason: Prior to IV Start Stop: 08/26/16 18:00 Lisinopril (Prinivil) 5 mg PO DAILY [facility] Last Admin: 08/26/16 09:36 Dose: Not Given Lorazepam (Ativan) 2 mg IVPUSH Q2H PRN PRN Reason: Anxiety Last Admin: 08/23/16 01:50 Dose: 2 mg Lorazepam (Ativan) 1 - 2 mg IVPUSH Q4H PRN; Protocol PRN Reason: Withdrawal Symptoms Lorazepam (Ativan) 1 mg PO Q4H PRN; Protocol PRN Reason: Withdrawal Symptoms Last Admin: 08/24/16 14:40 Dose: 1 mg Metoprolol Tartrate (Lopressor) 5 mg IVPUSH Q6H PRN PRN Reason: Tachycardia Quetiapine Fumarate (Seroquel) 50 mg PO BEDTIME [facility] Last Admin: 08/25/16 20:15 Dose: 50 mg Sodium Chloride (Saline Flush) 10 ml FLUSH ASDIRECTED PRN PRN Reason: Keep Vein Open Stop: 08/26/16 18:00 Temazepam (Restoril) 30 mg PO BEDTIME PRN PRN Reason: Insomnia Last Admin: 08/24/16 21:53 Dose: 30 mg Thiamine HCl (Vitamin B-1) 100 mg PO BEDTIME [facility] Last Admin: 08/25/16 20:15 Dose: 100 mg Discontinued Medications Atropine Sulfate (Atropine) Confirm Administered Dose 0.4 mg .ROUTE .STK-MED ONE Stop: 08/26/16 08:26 Chlordiazepoxide HCl (Librium) 25 mg PO ONETIME ONE Stop: 08/23/16 01:41 Last Admin: 08/23/16 05:06 Dose: Not Given Clonidine HCl (Catapres) 0.1 mg PO Q8H [facility] Last Admin: 08/26/16 09:36 Dose: Not Given Enoxaparin Sodium (Lovenox) 40 mg SUBCUT DAILY [facility] Last Admin: 08/25/16 08:17 Dose: 40 mg Ephedrine Sulfate (Ephedrine In Ns) Confirm Administered Dose 25 mg .ROUTE .STK- MED ONE Stop: 08/26/16 07:59 Fentanyl (Sublimaze) Confirm Administered Dose 100 mcg .ROUTE .STK-MED ONE Stop: 08/26/16 06:57 Flumazenil (Romazicon) Confirm Administered Dose 0.5 mg .ROUTE .STK-MED ONE Stop: 08/22/16 20:55 Last Admin: 08/23/16 01:59 Dose: Not Given Flumazenil (Romazicon) 0.1 mg IVPUSH ONETIME ONE Stop: 08/22/16 21:04 Last Admin: 08/22/16 21:32 Dose: 0.1 mg Lactated Ringer's (Ringers, Lactated) 1,000 mls @ 125 mls/hr IV ONETIME ONE Stop: 08/23/16 05:13 Last Admin: 08/22/16 21:17 Dose: 125 mls/hr Magnesium Sulfate 2 gm/ Premix 50 mls @ 25 mls/hr IV ONETIME ONE Stop: 08/23/16 14:01 Last Admin: 08/23/16 12:37 Dose: 25 mls/hr Lidocaine HCl (Xylocaine-Mpf 1%) Confirm Administered Dose 6 mls @ as directed .ROUTE .STK-MED ONE Stop: 08/26/16 06:56 Lactated Ringer's (Ringers, Lactated) Confirm Administered Dose 1,000 mls @ as directed .ROUTE .STK-MED ONE Stop: 08/26/16 06:56 Lorazepam (Ativan) Confirm Administered Dose 2 mg .ROUTE .STK-MED ONE Stop: 08/23/16 00:04 Last Admin: 08/23/16 00:03 Dose: 2 mg Metoprolol Tartrate (Lopressor) 25 mg PO BID [facility] Last Admin: 08/23/16 08:49 Dose: 25 mg Midazolam HCl (Versed 1 Mg/Ml) Confirm Administered Dose 2 mg .ROUTE .STK-MED ONE Stop: 08/26/16 06:58 Naloxone HCl (Narcan) Confirm Administered Dose 2 mg .ROUTE .STK-MED ONE Stop: 08/22/16 20:50 Last Admin: 08/23/16 01:59 Dose: Not Given Naloxone HCl (Narcan) 1 mg IVPUSH ONETIME ONE Stop: 08/22/16 21:04 Last Admin: 08/22/16 21:19 Dose: 1 mg Naloxone HCl (Narcan) 1 mg IVPUSH ONETIME ONE Stop: 08/22/16 21:06 Last Admin: 08/22/16 21:19 Dose: 1 mg Ondansetron HCl (Zofran) 4 mg IVPUSH ONETIME ONE Stop: 08/22/16 21:15 Last Admin: 08/22/16 21:17 Dose: 4 mg Polyethylene Glycol/Electrolytes (Golytely) 4,000 ml PO ONETIME ONE Stop: 08/25/16 17:01 Last Admin: 08/25/16 17:01 Dose: 4,000 ml Potassium Chloride (Potassium Chloride) 40 meq PO BID [facility] Stop: 08/25/16 21:01 Last Admin: 08/25/16 20:15 Dose: 40 meq Propofol (Diprivan 20 Ml) Confirm Administered Dose 200 mg .ROUTE .STK-MED ONE Stop: 08/26/16 06:57 Propofol (Diprivan 20 Ml) Confirm Administered Dose 200 mg .ROUTE .STK-MED ONE Stop: 08/26/16 08:18 - Exam Quality Assessment: DVT prophylaxis General: alert, oriented, no acute distress HEENT: Pupils equal, Pupils reactive, EOMI, Mucous membr. moist/pink Neck: supple Lungs: Clear to auscultation, Normal respiratory effort, Decreased breath sounds (bases bilat) Cardiovascular: Regular Rate, Regular Rhythm Abdomen: bowel sounds present, soft (Male) Exam: Deferred Extremities: no edema Neurological: no new focal deficit Psy/Mental Status: alert, other (flat affect) - Problem List & Annotations (1) Alcohol intoxication SNOMED Code(s): 95542614 Code(s): F10.929 - ALCOHOL USE, UNSPECIFIED WITH INTOXICATION, UNSPECIFIED Status: Acute Priority: High Current Visit: Yes (2) Suicidal intent SNOMED Code(s): 603886611 Code(s): R45.851 - SUICIDAL IDEATIONS Status: Acute Priority: High Current Visit: Yes (3) Depression SNOMED Code(s): 49271797 Code(s): F32.9 - MAJOR DEPRESSIVE DISORDER, SINGLE EPISODE, UNSPECIFIED Status: Acute Priority: High Current Visit: Yes Qualifiers: Depression Type: unspecified Qualified Code(s): F32.9 - Major depressive disorder, single episode, unspecified (4) Anemia SNOMED Code(s): 380902706 Code(s): D64.9 - ANEMIA, UNSPECIFIED Status: Acute Priority: High Current Visit: Yes Qualifiers: Anemia type: unspecified type Qualified Code(s): D64.9 - Anemia, unspecified - Problem List Review Problem List Initiated/Reviewed/Updated: Yes - My Orders Last 24 Hours: My Active Orders 08/26/16 Breakfast Heart Healthy Diet [DIET] - Plan Plan:: Impression: Suicidal Ideation; ETOH abuse; substance abuse: Marijuana, Hashish, Methamphetamine Anxiety/Depression, unspecified Etoh acute intoxication, recent ETOH sobriety program, clean for 8 weeks Post code for LOC with response to medical RX; received Narcan and Flumazenil. 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 ; history of DVTs/PE Query Factor V Leiden def. Chronic PEs CMP, nonischemic Query SD; query CHF--echo obtained with normal EF; no valvular concerns GERD HTN Hypothyroidism Plan: [facility] assessment for [facility] yesterday with approval; called [facility] this am for doc -to-doc for acceptance; no beds available currently [facility] protocol SA, IP treatment Psych, IP treatment Benzodazepine Clonidine--will decrease dose Home meds GI/DVT prophylaxis Heme work up GI work up, per Dr Strauss EGD/Colonoscopy at 0730 on 08/26/16. Suicide precautions and 1:1 care Correct electrolytes as needed SW/CM for dc planning assistance; LOS >96 hours due to lack of bed availability/ placement at [facility] <Marisol Arceo M - Last Filed: 08/26/16 13:59> - Patient Data Vitals - most recent: Last Vital Signs Temp 36.3 C 08/26/16 08:26 Pulse 63 08/26/16 09:47 Resp 14 08/26/16 08:26 BP 110/73 08/26/16 11:00 Pulse Ox 97 08/26/16 09:47 I&O - last 24 hours: Intake & Output 08/25/16 08/26/16 08/26/16 22:59 06:59 14:59 Intake Total 1810 725 920 Output Total 200 600 Balance 1610 125 920 Lab Results last 24 hrs: Laboratory Results - last 24 hr 08/26/16 08/26/16 08/26/16 Range/Units 05:50 05:50 05:50 WBC 7.28 (4.23-9.07) K/mm3 RBC 5.01 (4.63-6.08) M/mm3 Hgb 10.0 L (13.7-17.5) gm/L Hct 34.9 L (40.1-51.0) % MCV 69.7 L (79.0-92.2) fl MCH 20.0 L (25.7-32.2) pg MCHC 28.7 L (32.2-35.5) g/dl RDW Std Deviation 44.8 H (35.1-43.9) fL Plt Count 243 (163-337) K/mm3 MPV 11.2 (9.4-12.3) fl Neut % (Auto) 62.0 (34.0-67.9) % Lymph % (Auto) 23.9 (21.8-53.1) % [place] % (Auto) 9.1 (5.3-12.2) % Eos % (Auto) 4.4 (0.8-7.0) Baso % (Auto) 0.5 (0.1-1.2) % Neut # (Auto) 4.51 (1.78-5.38) K/mm3 Lymph # (Auto) 1.74 (1.32-3.57) K/mm3 [place] # (Auto) 0.66 (0.30-0.82) K/mm3 Eos # (Auto) 0.32 (0.04-0.54) K/mm3 Baso # (Auto) 0.04 (0.01-0.08) K/mm3 Manual Slide Review Abnormal smear Sodium 143 (136-145) mEq/L Potassium 4.1 (3.5-5.1) mEq/L Chloride 107 (98-107) mEq/L Carbon Dioxide 26 (21-32) mEq/L Anion Gap 14.1 (5-15) BUN 9 (7-18) mg/dL Creatinine 1.0 (0.7-1.3) mg/dL Est Cr Clr Drug Dosing 107.32 mL/min Estimated GFR (MDRD) > 60 (>60) mL/min BUN/Creatinine Ratio 9.0 L (14-18) Glucose 83 (74-106) mg/dL Calcium 8.4 L (8.5-10.1) mg/dL Magnesium 2.0 (1.8-2.4) mg/dl Iron 22 L (65-175) ug/dL TIBC 473 H (100-400) ug/dL % Saturation 5 L (20-55) % Transferrin 378 H (202-364) mg/dL Vitamin B12 704 (193-986) pg/ml Folate (8.6-58.9) ng/mL 08/26/16 Range/Units 05:50 WBC (4.23-9.07) K/mm3 RBC (4.63-6.08) M/mm3 Hgb (13.7-17.5) gm/L Hct (40.1-51.0) % MCV (79.0-92.2) fl MCH (25.7-32.2) pg MCHC (32.2-35.5) g/dl RDW Std Deviation (35.1-43.9) fL Plt Count (163-337) K/mm3 MPV (9.4-12.3) fl Neut % (Auto) (34.0-67.9) % Lymph % (Auto) (21.8-53.1) % [place] % (Auto) (5.3-12.2) % Eos % (Auto) (0.8-7.0) Baso % (Auto) (0.1-1.2) % Neut # (Auto) (1.78-5.38) K/mm3 Lymph # (Auto) (1.32-3.57) K/mm3 [place] # (Auto) (0.30-0.82) K/mm3 Eos # (Auto) (0.04-0.54) K/mm3 Baso # (Auto) (0.01-0.08) K/mm3 Manual Slide Review Sodium (136-145) mEq/L Potassium (3.5-5.1) mEq/L Chloride (98-107) mEq/L Carbon Dioxide (21-32) mEq/L Anion Gap (5-15) BUN (7-18) mg/dL Creatinine (0.7-1.3) mg/dL Est Cr Clr Drug Dosing mL/min Estimated GFR (MDRD) (>60) mL/min BUN/Creatinine Ratio (14-18) Glucose (74-106) mg/dL Calcium (8.5-10.1) mg/dL Magnesium (1.8-2.4) mg/dl Iron (65-175) ug/dL TIBC (100-400) ug/dL % Saturation (20-55) % Transferrin (202-364) mg/dL Vitamin B12 (193-986) pg/ml Folate 12.6 (8.6-58.9) ng/mL Med Orders - Current: Current Medications Carvedilol (Coreg) 12.5 mg PO BID [facility] Last Admin: 08/26/16 10:01 Dose: Not Given Chlordiazepoxide HCl (Librium) 25 mg PO BID [facility] Ferrous Sulfate (Ferrous Sulfate) 325 mg PO WITHBREAKFAST [facility] Last Admin: 08/26/16 09:55 Dose: 325 mg Fluoxetine HCl (Prozac) 20 mg PO DAILY [facility] Last Admin: 08/26/16 09:55 Dose: 20 mg Folic Acid (Folic Acid) 1 mg PO DAILY [facility] Last Admin: 08/26/16 09:55 Dose: 1 mg Haloperidol Lactate (Haldol) 2 mg IVPUSH Q8H PRN PRN Reason: Agitation Last Admin: 08/23/16 03:36 Dose: 2 mg Levothyroxine Sodium (Levothyroxine) 25 mcg PO ACBREAKFAST [facility] Last Admin: 08/26/16 09:54 Dose: 25 mcg Lidocaine/Sodium Bicarbonate (Buffered Lidocaine 1% In Ns 8.4%) 0.25 ml IV ONETIME PRN PRN Reason: Prior to IV Start Stop: 08/26/16 18:00 Lisinopril (Prinivil) 5 mg PO DAILY [facility] Last Admin: 08/26/16 09:36 Dose: Not Given Lorazepam (Ativan) 1 - 2 mg IVPUSH Q4H PRN; Protocol PRN Reason: Withdrawal Symptoms Lorazepam (Ativan) 1 mg PO Q4H PRN; Protocol PRN Reason: Withdrawal Symptoms Last Admin: 08/24/16 14:40 Dose: 1 mg Metoprolol Tartrate (Lopressor) 5 mg IVPUSH Q6H PRN PRN Reason: Tachycardia Multivitamins (Thera) 1 each PO BEDTIME [facility] Quetiapine Fumarate (Seroquel) 50 mg PO BEDTIME [facility] Last Admin: 08/25/16 20:15 Dose: 50 mg Sodium Chloride (Saline Flush) 10 ml FLUSH ASDIRECTED PRN PRN Reason: Keep Vein Open Stop: 08/26/16 18:00 Temazepam (Restoril) 30 mg PO BEDTIME PRN PRN Reason: Insomnia Last Admin: 08/24/16 21:53 Dose: 30 mg Thiamine HCl (Vitamin B-1) 100 mg PO BEDTIME [facility] Last Admin: 08/25/16 20:15 Dose: 100 mg Discontinued Medications Atropine Sulfate (Atropine) Confirm Administered Dose 0.4 mg .ROUTE .STK-MED ONE Stop: 08/26/16 08:26 Chlordiazepoxide HCl (Librium) 25 mg PO QID [facility] Last Admin: 08/26/16 09:55 Dose: 25 mg Chlordiazepoxide HCl (Librium) 25 mg PO ONETIME ONE Stop: 08/23/16 01:41 Last Admin: 08/23/16 05:06 Dose: Not Given Clonidine HCl (Catapres) 0.1 mg PO Q8H [facility] Last Admin: 08/26/16 09:36 Dose: Not Given Enoxaparin Sodium (Lovenox) 40 mg SUBCUT DAILY [facility] Last Admin: 08/25/16 08:17 Dose: 40 mg Ephedrine Sulfate (Ephedrine In Ns) Confirm Administered Dose 25 mg .ROUTE .STK- MED ONE Stop: 08/26/16 07:59 Fentanyl (Sublimaze) Confirm Administered Dose 100 mcg .ROUTE .STK-MED ONE Stop: 08/26/16 06:57 Flumazenil (Romazicon) Confirm Administered Dose 0.5 mg .ROUTE .STK-MED ONE Stop: 08/22/16 20:55 Last Admin: 08/23/16 01:59 Dose: Not Given Flumazenil (Romazicon) 0.1 mg IVPUSH ONETIME ONE Stop: 08/22/16 21:04 Last Admin: 08/22/16 21:32 Dose: 0.1 mg Lactated Ringer's (Ringers, Lactated) 1,000 mls @ 125 mls/hr IV ONETIME ONE Stop: 08/23/16 05:13 Last Admin: 08/22/16 21:17 Dose: 125 mls/hr Magnesium Sulfate 2 gm/ Premix 50 mls @ 25 mls/hr IV ONETIME ONE Stop: 08/23/16 14:01 Last Admin: 08/23/16 12:37 Dose: 25 mls/hr Lactated Ringer's (Ringers, Lactated) 1,000 mls @ 125 mls/hr IV ASDIRECTED [facility] Stop: 08/26/16 23:00 Lidocaine HCl (Xylocaine-Mpf 1%) Confirm Administered Dose 6 mls @ as directed .ROUTE .STK-MED ONE Stop: 08/26/16 06:56 Lactated Ringer's (Ringers, Lactated) Confirm Administered Dose 1,000 mls @ as directed .ROUTE .STK-MED ONE Stop: 08/26/16 06:56 Lorazepam (Ativan) Confirm Administered Dose 2 mg .ROUTE .STK-MED ONE Stop: 08/23/16 00:04 Last Admin: 08/23/16 00:03 Dose: 2 mg Lorazepam (Ativan) 2 mg IVPUSH Q2H PRN PRN Reason: Anxiety Last Admin: 08/23/16 01:50 Dose: 2 mg Metoprolol Tartrate (Lopressor) 25 mg PO BID [facility] Last Admin: 08/23/16 08:49 Dose: 25 mg Midazolam HCl (Versed 1 Mg/Ml) Confirm Administered Dose 2 mg .ROUTE .STK-MED ONE Stop: 08/26/16 06:58 Naloxone HCl (Narcan) Confirm Administered Dose 2 mg .ROUTE .STK-MED ONE Stop: 08/22/16 20:50 Last Admin: 08/23/16 01:59 Dose: Not Given Naloxone HCl (Narcan) 1 mg IVPUSH ONETIME ONE Stop: 08/22/16 21:04 Last Admin: 08/22/16 21:19 Dose: 1 mg Naloxone HCl (Narcan) 1 mg IVPUSH ONETIME ONE Stop: 08/22/16 21:06 Last Admin: 08/22/16 21:19 Dose: 1 mg Ondansetron HCl (Zofran) 4 mg IVPUSH ONETIME ONE Stop: 08/22/16 21:15 Last Admin: 08/22/16 21:17 Dose: 4 mg Polyethylene Glycol/Electrolytes (Golytely) 4,000 ml PO ONETIME ONE Stop: 08/25/16 17:01 Last Admin: 08/25/16 17:01 Dose: 4,000 ml Potassium Chloride (Potassium Chloride) 40 meq PO BID [facility] Stop: 08/25/16 21:01 Last Admin: 08/25/16 20:15 Dose: 40 meq Propofol (Diprivan 20 Ml) Confirm Administered Dose 200 mg .ROUTE .STK-MED ONE Stop: 08/26/16 06:57 Propofol (Diprivan 20 Ml) Confirm Administered Dose 200 mg .ROUTE .STK-MED ONE Stop: 08/26/16 08:18 - Problem List & Annotations (1) Alcohol intoxication SNOMED Code(s): 95773194 Code(s): F10.929 - ALCOHOL USE, UNSPECIFIED WITH INTOXICATION, UNSPECIFIED Status: Acute Priority: High Current Visit: Yes (2) Suicidal intent SNOMED Code(s): 283232285 Code(s): R45.851 - SUICIDAL IDEATIONS Status: Acute Priority: High Current Visit: Yes (3) Anemia SNOMED Code(s): 374686000 Code(s): D64.9 - ANEMIA, UNSPECIFIED Status: Acute Priority: High Current Visit: Yes Qualifiers: Anemia type: unspecified type Qualified Code(s): D64.9 - Anemia, unspecified (4) GERD (gastroesophageal reflux disease) SNOMED Code(s): 449480780 Code(s): K21.9 - GASTRO-ESOPHAGEAL REFLUX DISEASE WITHOUT ESOPHAGITIS Status: Acute Current Visit: No (5) Hypertension SNOMED Code(s): 29933062 Code(s): I10 - ESSENTIAL (PRIMARY) HYPERTENSION Status: Acute Current Visit: No (6) Non-cardiac chest pain SNOMED Code(s): 858631642 Code(s): R07.89 - OTHER CHEST PAIN Status: Acute Current Visit: No (7) Depression SNOMED Code(s): 73975315 Code(s): F32.9 - MAJOR DEPRESSIVE DISORDER, SINGLE EPISODE, UNSPECIFIED Status: Acute Priority: High Current Visit: Yes Qualifiers: Depression Type: unspecified Qualified Code(s): F32.9 - Major depressive disorder, single episode, unspecified - My Orders Last 24 Hours: My Active Orders 08/26/16 12:33 Code Status [Resuscitation Status] Routine 08/27/16 05:00 BASIC METABOLIC PANEL,BMP [CHEM] DAILY CBC WITH AUTO DIFF [HEME] DAILY MAGNESIUM [CHEM] DAILY - Plan Plan:: Agree with above, [facility] placement early next week, awaiting bed.
--- NOTE | 2016-08-26 15:47 | OR ---
DATE OF OPERATION: 08/26/2016 SURGEON: Baltazar Strauss MD PREOPERATIVE DIAGNOSIS: Gastrointestinal bleed. POSTOPERATIVE DIAGNOSIS: Gastrointestinal bleed. OPERATION PERFORMED: Colonoscopy to the junction of the cecum and ascending colon, with removal of a subcentimeter polyp at 20 cm under IV sedation. FINDINGS: Diminutive polyp at 20 cm, mild diverticulosis of sigmoid colon. There were no angiodysplasias, large tumor masses, ulcerations, or notable hemorrhoids. DESCRIPTION OF PROCEDURE: The patient was taken to the operating room, placed in the supine position, and connected to monitoring equipment, given IV sedation for upper GI endoscopy. This was continued for colonoscopy. The patient was placed in left lateral position. The perianal area was inspected and was normal. Rectal exam showed good sphincter tone. A video Olympus colonoscope was then introduced into the rectum and threaded up to the junction of the cecum with the ascending colon, ileocecal valve was noted, and was unremarkable. Sigmoid loop developed and I was unable to control it or advance the scope into the cecum. Prep was excellent. [place] [employer] score was grade A throughout the colon and the scope was slowly withdrawn showing the portion of the cecum, ascending colon, transverse colon, descending colon, sigmoid colon, and rectum. Retroflexed view was done. The polyp was noted in the 20 cm, this was lassoed with cautery snare, removed and retrieved, and sent to pathology. The patient tolerated the procedure, was sent to recovery room in a stable condition, and will be followed up as needed. ANESTHESIA: ESTIMATED BLOOD LOSS: MMODAL /[id number]
--- NOTE | 2016-08-26 15:51 | OR ---
ADDENDUM: DATE OF OPERATION: 08/26/2016 SURGEON: Baltazar Strauss MD A polyp that was removed at 20 cm was not retrieved. MMODAL /[id number]
[2016-08-26] MEDS: Ibuprofen 600 MG Tab PO PRN (16:54)
[2016-08-26] MEDS: QUEtiapine 25 MG Tab PO SCH (20:48)
[2016-08-26] MEDS: Multivitamins,Therapeutic Tab PO SCH (20:53)
[2016-08-26] MEDS: Thiamine 100 MG Tab PO SCH (20:56)
[2016-08-27] MEDS: Levothyroxine 25 MCG Tab PO SCH (05:44)
[2016-08-27] MEDS: Ibuprofen 600 MG Tab PO PRN (05:50)
[2016-08-27] MEDS: FLUoxetine 20 MG Cap PO SCH (08:23)
[2016-08-27] MEDS: Ferrous Sulfate 325 MG Tab PO SCH (08:23)
[2016-08-27] MEDS: Folic Acid 1 MG Tab PO SCH (08:23)
[2016-08-27] MEDS: chlordiazePOXIDE 25 MG Cap PO SCH ×2 (08:24→20:01)
--- NOTE | 2016-08-27 10:16 | PCM.PN ---
- General Info Date of Service: 08/27/16 Functional Status: Reports: pain controlled, tolerating diet, ambulating, urinating - Review of Systems General: Reports: No Symptoms HEENT: Reports: no symptoms Pulmonary: Reports: no symptoms Cardiovascular: Reports: No Symptoms Gastrointestinal: Reports: No symptoms Genitourinary: Reports: no symptoms Musculoskeletal: Reports: no symptoms Skin: Reports: no symptoms Neurological: Reports: No Symptoms Psychiatric: Reports: no symptoms - Patient Data Vitals - most recent: Last Vital Signs Temp 36.4 C 08/27/16 08:17 Pulse 58 L 08/27/16 08:17 Resp 14 08/27/16 08:17 BP 115/76 08/27/16 08:17 Pulse Ox 99 08/27/16 08:17 Weight - most recent: 113.897 kg I&O - last 24 hours: Intake & Output 08/26/16 08/27/16 08/27/16 22:59 06:59 14:59 Intake Total 1680 400 Output Total 1000 Balance 680 400 Lab Results last 24 hrs: Laboratory Results - last 24 hr 08/26/16 08/26/16 08/27/16 Range/Units 05:50 05:50 05:54 WBC 8.34 (4.23-9.07) K/mm3 RBC 5.12 (4.63-6.08) M/mm3 Hgb 10.3 L (13.7-17.5) gm/L Hct 35.7 L (40.1-51.0) % MCV 69.7 L (79.0-92.2) fl MCH 20.1 L (25.7-32.2) pg MCHC 28.9 L (32.2-35.5) g/dl RDW Std Deviation 45.7 H (35.1-43.9) fL Plt Count 253 (163-337) K/mm3 MPV 11.4 (9.4-12.3) fl Neut % (Auto) 59.1 (34.0-67.9) % Lymph % (Auto) 28.2 (21.8-53.1) % Nance % (Auto) 8.8 (5.3-12.2) % Eos % (Auto) 3.2 (0.8-7.0) Baso % (Auto) 0.5 (0.1-1.2) % Neut # (Auto) 4.93 (1.78-5.38) K/mm3 Lymph # (Auto) 2.35 (1.32-3.57) K/mm3 Nance # (Auto) 0.73 (0.30-0.82) K/mm3 Eos # (Auto) 0.27 (0.04-0.54) K/mm3 Baso # (Auto) 0.04 (0.01-0.08) K/mm3 Manual Slide Review Abnormal smear Sodium (136-145) mEq/L Potassium (3.5-5.1) mEq/L Chloride (98-107) mEq/L Carbon Dioxide (21-32) mEq/L Anion Gap (5-15) BUN (7-18) mg/dL Creatinine (0.7-1.3) mg/dL Est Cr Clr Drug Dosing mL/min Estimated GFR (MDRD) (>60) mL/min BUN/Creatinine Ratio (14-18) Glucose (74-106) mg/dL Calcium (8.5-10.1) mg/dL Magnesium (1.8-2.4) mg/dl Iron 22 L (65-175) ug/dL TIBC 473 H (100-400) ug/dL % Saturation 5 L (20-55) % Transferrin 378 H (202-364) mg/dL Vitamin B12 704 (193-986) pg/ml Folate 12.6 (8.6-58.9) ng/mL 08/27/16 Range/Units 05:54 WBC (4.23-9.07) K/mm3 RBC (4.63-6.08) M/mm3 Hgb (13.7-17.5) gm/L Hct (40.1-51.0) % MCV (79.0-92.2) fl MCH (25.7-32.2) pg MCHC (32.2-35.5) g/dl RDW Std Deviation (35.1-43.9) fL Plt Count (163-337) K/mm3 MPV (9.4-12.3) fl Neut % (Auto) (34.0-67.9) % Lymph % (Auto) (21.8-53.1) % Nance % (Auto) (5.3-12.2) % Eos % (Auto) (0.8-7.0) Baso % (Auto) (0.1-1.2) % Neut # (Auto) (1.78-5.38) K/mm3 Lymph # (Auto) (1.32-3.57) K/mm3 Nance # (Auto) (0.30-0.82) K/mm3 Eos # (Auto) (0.04-0.54) K/mm3 Baso # (Auto) (0.01-0.08) K/mm3 Manual Slide Review Sodium 140 (136-145) mEq/L Potassium 3.9 (3.5-5.1) mEq/L Chloride 105 (98-107) mEq/L Carbon Dioxide 27 (21-32) mEq/L Anion Gap 11.9 (5-15) BUN 17 (7-18) mg/dL Creatinine 1.2 (0.7-1.3) mg/dL Est Cr Clr Drug Dosing 89.43 mL/min Estimated GFR (MDRD) > 60 (>60) mL/min BUN/Creatinine Ratio 14.2 (14-18) Glucose 103 (74-106) mg/dL Calcium 8.9 (8.5-10.1) mg/dL Magnesium 2.5 H (1.8-2.4) mg/dl Iron (65-175) ug/dL TIBC (100-400) ug/dL % Saturation (20-55) % Transferrin (202-364) mg/dL Vitamin B12 (193-986) pg/ml Folate (8.6-58.9) ng/mL Med Orders - Current: Current Medications Carvedilol (Coreg) 12.5 mg PO BID [facility] Last Admin: 08/26/16 20:52 Dose: 12.5 mg Chlordiazepoxide HCl (Librium) 25 mg PO BID [facility] Last Admin: 08/27/16 08:24 Dose: 25 mg Ferrous Sulfate (Ferrous Sulfate) 325 mg PO WITHBREAKFAST [facility] Last Admin: 08/27/16 08:23 Dose: 325 mg Fluoxetine HCl (Prozac) 20 mg PO DAILY [facility] Last Admin: 08/27/16 08:23 Dose: 20 mg Folic Acid (Folic Acid) 1 mg PO DAILY [facility] Last Admin: 08/27/16 08:23 Dose: 1 mg Haloperidol Lactate (Haldol) 2 mg IVPUSH Q8H PRN PRN Reason: Agitation Last Admin: 08/23/16 03:36 Dose: 2 mg Ibuprofen (Motrin) 600 mg PO Q6H PRN PRN Reason: pain Last Admin: 08/27/16 05:50 Dose: 600 mg Levothyroxine Sodium (Levothyroxine) 25 mcg PO ACBREAKFAST [facility] Last Admin: 08/27/16 05:44 Dose: 25 mcg Lisinopril (Prinivil) 5 mg PO DAILY [facility] Last Admin: 08/26/16 09:36 Dose: Not Given Lorazepam (Ativan) 1 - 2 mg IVPUSH Q4H PRN; Protocol PRN Reason: Withdrawal Symptoms Lorazepam (Ativan) 1 mg PO Q4H PRN; Protocol PRN Reason: Withdrawal Symptoms Last Admin: 08/24/16 14:40 Dose: 1 mg Metoprolol Tartrate (Lopressor) 5 mg IVPUSH Q6H PRN PRN Reason: Tachycardia Multivitamins (Thera) 1 each PO BEDTIME [facility] Last Admin: 08/26/16 20:53 Dose: 1 each Quetiapine Fumarate (Seroquel) 50 mg PO BEDTIME [facility] Last Admin: 08/26/16 20:48 Dose: 50 mg Temazepam (Restoril) 30 mg PO BEDTIME PRN PRN Reason: Insomnia Last Admin: 08/24/16 21:53 Dose: 30 mg Thiamine HCl (Vitamin B-1) 100 mg PO BEDTIME [facility] Last Admin: 08/26/16 20:56 Dose: 100 mg Discontinued Medications Atropine Sulfate (Atropine) Confirm Administered Dose 0.4 mg .ROUTE .STK-MED ONE Stop: 08/26/16 08:26 Chlordiazepoxide HCl (Librium) 25 mg PO QID [facility] Last Admin: 08/26/16 09:55 Dose: 25 mg Chlordiazepoxide HCl (Librium) 25 mg PO ONETIME ONE Stop: 08/23/16 01:41 Last Admin: 08/23/16 05:06 Dose: Not Given Clonidine HCl (Catapres) 0.1 mg PO Q8H [facility] Last Admin: 08/26/16 09:36 Dose: Not Given Enoxaparin Sodium (Lovenox) 40 mg SUBCUT DAILY [facility] Last Admin: 08/25/16 08:17 Dose: 40 mg Ephedrine Sulfate (Ephedrine In Ns) Confirm Administered Dose 25 mg .ROUTE .STK- MED ONE Stop: 08/26/16 07:59 Fentanyl (Sublimaze) Confirm Administered Dose 100 mcg .ROUTE .STK-MED ONE Stop: 08/26/16 06:57 Flumazenil (Romazicon) Confirm Administered Dose 0.5 mg .ROUTE .STK-MED ONE Stop: 08/22/16 20:55 Last Admin: 08/23/16 01:59 Dose: Not Given Flumazenil (Romazicon) 0.1 mg IVPUSH ONETIME ONE Stop: 08/22/16 21:04 Last Admin: 08/22/16 21:32 Dose: 0.1 mg Lactated Ringer's (Ringers, Lactated) 1,000 mls @ 125 mls/hr IV ONETIME ONE Stop: 08/23/16 05:13 Last Admin: 08/22/16 21:17 Dose: 125 mls/hr Magnesium Sulfate 2 gm/ Premix 50 mls @ 25 mls/hr IV ONETIME ONE Stop: 08/23/16 14:01 Last Admin: 08/23/16 12:37 Dose: 25 mls/hr Lactated Ringer's (Ringers, Lactated) 1,000 mls @ 125 mls/hr IV ASDIRECTED [facility] Stop: 08/26/16 23:00 Lidocaine HCl (Xylocaine-Mpf 1%) Confirm Administered Dose 6 mls @ as directed .ROUTE .STK-MED ONE Stop: 08/26/16 06:56 Lactated Ringer's (Ringers, Lactated) Confirm Administered Dose 1,000 mls @ as directed .ROUTE .STK-MED ONE Stop: 08/26/16 06:56 Lidocaine/Sodium Bicarbonate (Buffered Lidocaine 1% In Ns 8.4%) 0.25 ml IV ONETIME PRN PRN Reason: Prior to IV Start Stop: 08/26/16 18:00 Lorazepam (Ativan) Confirm Administered Dose 2 mg .ROUTE .STK-MED ONE Stop: 08/23/16 00:04 Last Admin: 08/23/16 00:03 Dose: 2 mg Lorazepam (Ativan) 2 mg IVPUSH Q2H PRN PRN Reason: Anxiety Last Admin: 08/23/16 01:50 Dose: 2 mg Metoprolol Tartrate (Lopressor) 25 mg PO BID [facility] Last Admin: 08/23/16 08:49 Dose: 25 mg Midazolam HCl (Versed 1 Mg/Ml) Confirm Administered Dose 2 mg .ROUTE .STK-MED ONE Stop: 08/26/16 06:58 Naloxone HCl (Narcan) Confirm Administered Dose 2 mg .ROUTE .STK-MED ONE Stop: 08/22/16 20:50 Last Admin: 08/23/16 01:59 Dose: Not Given Naloxone HCl (Narcan) 1 mg IVPUSH ONETIME ONE Stop: 08/22/16 21:04 Last Admin: 08/22/16 21:19 Dose: 1 mg Naloxone HCl (Narcan) 1 mg IVPUSH ONETIME ONE Stop: 08/22/16 21:06 Last Admin: 08/22/16 21:19 Dose: 1 mg Ondansetron HCl (Zofran) 4 mg IVPUSH ONETIME ONE Stop: 08/22/16 21:15 Last Admin: 08/22/16 21:17 Dose: 4 mg Polyethylene Glycol/Electrolytes (Golytely) 4,000 ml PO ONETIME ONE Stop: 08/25/16 17:01 Last Admin: 08/25/16 17:01 Dose: 4,000 ml Potassium Chloride (Potassium Chloride) 40 meq PO BID [facility] Stop: 08/25/16 21:01 Last Admin: 08/25/16 20:15 Dose: 40 meq Propofol (Diprivan 20 Ml) Confirm Administered Dose 200 mg .ROUTE .STK-MED ONE Stop: 08/26/16 06:57 Propofol (Diprivan 20 Ml) Confirm Administered Dose 200 mg .ROUTE .STK-MED ONE Stop: 08/26/16 08:18 Sodium Chloride (Saline Flush) 10 ml FLUSH ASDIRECTED PRN PRN Reason: Keep Vein Open Stop: 08/26/16 18:00 - Exam Quality Assessment: DVT prophylaxis General: alert, oriented, cooperative, no acute distress HEENT: Pupils equal, Pupils reactive, EOMI, Mucous membr. moist/pink Neck: supple, trachea midline, no JVD Lungs: Clear to auscultation, Normal respiratory effort Cardiovascular: Regular Rate, Regular Rhythm Abdomen: bowel sounds present, soft, no tenderness, no distension (Male) Exam: Deferred Back Exam: Normal Inspection Extremities: normal pulses Skin: warm Neurological: no new focal deficit, normal gait, normal speech Psy/Mental Status: alert, normal affect, normal mood - Problem List & Annotations (1) Alcohol intoxication SNOMED Code(s): 05308298 Code(s): F10.929 - ALCOHOL USE, UNSPECIFIED WITH INTOXICATION, UNSPECIFIED Status: Acute Priority: High Current Visit: Yes (2) Suicidal intent SNOMED Code(s): 639284322 Code(s): R45.851 - SUICIDAL IDEATIONS Status: Acute Priority: High Current Visit: Yes (3) Anemia SNOMED Code(s): 381075136 Code(s): D64.9 - ANEMIA, UNSPECIFIED Status: Acute Priority: High Current Visit: Yes Qualifiers: Anemia type: unspecified type Qualified Code(s): D64.9 - Anemia, unspecified (4) GERD (gastroesophageal reflux disease) SNOMED Code(s): 361478720 Code(s): K21.9 - GASTRO-ESOPHAGEAL REFLUX DISEASE WITHOUT ESOPHAGITIS Status: Acute Current Visit: No (5) Hypertension SNOMED Code(s): 50363432 Code(s): I10 - ESSENTIAL (PRIMARY) HYPERTENSION Status: Acute Current Visit: No (6) Non-cardiac chest pain SNOMED Code(s): 130426431 Code(s): R07.89 - OTHER CHEST PAIN Status: Acute Current Visit: No (7) Depression SNOMED Code(s): 09888814 Code(s): F32.9 - MAJOR DEPRESSIVE DISORDER, SINGLE EPISODE, UNSPECIFIED Status: Acute Priority: High Current Visit: Yes Qualifiers: Depression Type: unspecified Qualified Code(s): F32.9 - Major depressive disorder, single episode, unspecified - Problem List Review Problem List Initiated/Reviewed/Updated: Yes - My Orders Last 24 Hours: My Active Orders 08/26/16 12:33 Code Status [Resuscitation Status] Routine 08/26/16 16:37 Ibuprofen [Motrin] 600 mg PO Q6H PRN - Plan Plan:: Impression/Plan: Depression with suicidal thoughts ?/ coupled with ETOH abuse Current suicide 1:[address] Mchugh; await early next week for available bed Anemia with no signs of acute bleeding, s/p polyp removal 20 cm from rectum; bx pending History of Coumadin use, stopped by ED physician with concern for GI blood loss. Reportedly use of Coumadin for PE/DVT; reportedly hx of familial coagulopathy; labs are pending Query Factor V Leiden LOS>96 hours with SA/Psych/ETOH treatment-stable, however awaiting [facility] bed.
[2016-08-27] MEDS ORDERED: Ibuprofen 600 MG Tab PO PRN (10:24)
[2016-08-27] MEDS: Lisinopril 10 MG Tab PO SCH ×2 (10:28→20:02)
[2016-08-27] MEDS: Carvedilol 12.5 MG Tab PO SCH ×2 (10:28→20:01)
[2016-08-27] MEDS ORDERED: Aluminum Hydroxide/Magnesium Hydroxide/Simethicone Susp 30 ML Cup PO PRN (18:14)
[2016-08-27] MEDS: Warfarin 2.5 MG Tab PO SCH (18:15)
[2016-08-27] MEDS: Multivitamins,Therapeutic Tab PO SCH (20:01)
[2016-08-27] MEDS: QUEtiapine 25 MG Tab PO SCH (20:01)
[2016-08-27] MEDS: Thiamine 100 MG Tab PO SCH (20:01)
[2016-08-28] MEDS: Levothyroxine 25 MCG Tab PO SCH (06:22)
[2016-08-28] MEDS: Ferrous Sulfate 325 MG Tab PO SCH (06:22)
[2016-08-28] MEDS: chlordiazePOXIDE 25 MG Cap PO SCH ×2 (08:55→21:14)
[2016-08-28] MEDS: Carvedilol 12.5 MG Tab PO SCH ×2 (08:55→21:21)
[2016-08-28] MEDS: Folic Acid 1 MG Tab PO SCH (08:56)
[2016-08-28] MEDS: Pantoprazole 40 MG Tab.CR PO SCH (08:56)
[2016-08-28] MEDS: FLUoxetine 20 MG Cap PO SCH (08:56)
--- NOTE | 2016-08-28 09:30 | PCM.PN ---
- General Info Date of Service: 08/28/16 Functional Status: Reports: pain controlled, tolerating diet, ambulating, urinating - Review of Systems General: Reports: No Symptoms HEENT: Reports: no symptoms Pulmonary: Reports: no symptoms Cardiovascular: Reports: No Symptoms Gastrointestinal: Reports: No symptoms Genitourinary: Reports: no symptoms Musculoskeletal: Reports: no symptoms Skin: Reports: no symptoms Neurological: Reports: No Symptoms Psychiatric: Reports: no symptoms - Patient Data Vitals - most recent: Last Vital Signs Temp 36.7 C 08/28/16 08:18 Pulse 72 08/28/16 08:55 Resp 14 08/28/16 08:18 BP 140/88 08/28/16 08:55 Pulse Ox 100 08/28/16 08:18 Weight - most recent: 115.666 kg I&O - last 24 hours: Intake & Output 08/27/16 08/28/16 08/28/16 22:59 06:59 14:59 Intake Total 1060 1600 Balance 1060 1600 Lab Results last 24 hrs: Laboratory Results - last 24 hr 08/23/16 08/23/16 08/23/16 Range/Units 18:20 18:20 18:20 PT 14.1 (12.0-14.2) sec INR APTT 27 (26-36) sec Thrombin Time 18.6 (15.6-20.0) sec dRVV Screen 46.2 H (31.8-45.7) sec dRVVT Mixing Study 1.0 (0.0-1.2) Protein C Activity 93 (70-145) % Protein S Activity 125 (69-161) % Factor V Leiden Method See below Fac V Leiden Mutat Note See below Factor V Leiden Negative (NEG) Factor V Leiden Interp See below b-2 Glycoprot IgG Intp <6 (0-20) CU b-2 Glycoprot IgM Intp <1 (0-20) CU Anti-Cardiolipin IgG Ab <3 (0-20) CU Anti-Cardiolipin IgM Ab <1 (0-20) CU 08/27/16 Range/Units 05:54 PT 10.0 (12.0-14.2) sec INR 0.92 APTT (26-36) sec Thrombin Time (15.6-20.0) sec dRVV Screen (31.8-45.7) sec dRVVT Mixing Study (0.0-1.2) Protein C Activity (70-145) % Protein S Activity (69-161) % Factor V Leiden Method Fac V Leiden Mutat Note Factor V Leiden (NEG) Factor V Leiden Interp b-2 Glycoprot IgG Intp (0-20) CU b-2 Glycoprot IgM Intp (0-20) CU Anti-Cardiolipin IgG Ab (0-20) CU Anti-Cardiolipin IgM Ab (0-20) CU Med Orders - Current: Current Medications Al Hydroxide/Mg Hydroxide (Mag-Al Plus) 30 ml PO Q4H PRN PRN Reason: Heartburn Last Admin: 08/27/16 18:17 Dose: 30 ml Carvedilol (Coreg) 6.52 mg PO BID [facility] Last Admin: 08/28/16 08:55 Dose: 6.52 mg Chlordiazepoxide HCl (Librium) 25 mg PO BID [facility] Last Admin: 08/28/16 08:55 Dose: 25 mg Ferrous Sulfate (Ferrous Sulfate) 325 mg PO WITHBREAKFAST [facility] Last Admin: 08/28/16 06:22 Dose: 325 mg Fluoxetine HCl (Prozac) 20 mg PO DAILY [facility] Last Admin: 08/28/16 08:56 Dose: 20 mg Folic Acid (Folic Acid) 1 mg PO DAILY [facility] Last Admin: 08/28/16 08:56 Dose: 1 mg Haloperidol Lactate (Haldol) 2 mg IVPUSH Q8H PRN PRN Reason: Agitation Last Admin: 08/23/16 03:36 Dose: 2 mg Ibuprofen (Motrin) 600 mg PO Q8H PRN PRN Reason: pain Last Admin: 08/27/16 20:03 Dose: 600 mg Levothyroxine Sodium (Levothyroxine) 25 mcg PO ACBREAKFAST [facility] Last Admin: 08/28/16 06:22 Dose: 25 mcg Lisinopril (Prinivil) 2.5 mg PO BEDTIME [facility] Last Admin: 08/27/16 20:02 Dose: 2.5 mg Lorazepam (Ativan) 1 - 2 mg IVPUSH Q4H PRN; Protocol PRN Reason: Withdrawal Symptoms Lorazepam (Ativan) 1 mg PO Q4H PRN; Protocol PRN Reason: Withdrawal Symptoms Last Admin: 08/24/16 14:40 Dose: 1 mg Metoprolol Tartrate (Lopressor) 5 mg IVPUSH Q6H PRN PRN Reason: Tachycardia Multivitamins (Thera) 1 each PO BEDTIME [facility] Last Admin: 08/27/16 20:01 Dose: 1 each Pantoprazole Sodium (Protonix) 40 mg PO ACBREAKFAST [facility] Last Admin: 08/28/16 08:56 Dose: 40 mg Quetiapine Fumarate (Seroquel) 50 mg PO BEDTIME [facility] Last Admin: 08/27/16 20:01 Dose: 50 mg Temazepam (Restoril) 30 mg PO BEDTIME PRN PRN Reason: Insomnia Last Admin: 08/24/16 21:53 Dose: 30 mg Thiamine HCl (Vitamin B-1) 100 mg PO BEDTIME [facility] Last Admin: 08/27/16 20:01 Dose: 100 mg Warfarin Sodium (Coumadin) 2.5 mg PO DAILY@1800 [facility] Last Admin: 08/27/16 18:15 Dose: 2.5 mg Discontinued Medications Atropine Sulfate (Atropine) Confirm Administered Dose 0.4 mg .ROUTE .STK-MED ONE Stop: 08/26/16 08:26 Carvedilol (Coreg) 12.5 mg PO BID [facility] Last Admin: 08/27/16 10:28 Dose: Not Given Chlordiazepoxide HCl (Librium) 25 mg PO QID [facility] Last Admin: 08/26/16 09:55 Dose: 25 mg Chlordiazepoxide HCl (Librium) 25 mg PO ONETIME ONE Stop: 08/23/16 01:41 Last Admin: 08/23/16 05:06 Dose: Not Given Clonidine HCl (Catapres) 0.1 mg PO Q8H [facility] Last Admin: 08/26/16 09:36 Dose: Not Given Enoxaparin Sodium (Lovenox) 40 mg SUBCUT DAILY [facility] Last Admin: 08/25/16 08:17 Dose: 40 mg Ephedrine Sulfate (Ephedrine In Ns) Confirm Administered Dose 25 mg .ROUTE .STK- MED ONE Stop: 08/26/16 07:59 Fentanyl (Sublimaze) Confirm Administered Dose 100 mcg .ROUTE .STK-MED ONE Stop: 08/26/16 06:57 Flumazenil (Romazicon) Confirm Administered Dose 0.5 mg .ROUTE .STK-MED ONE Stop: 08/22/16 20:55 Last Admin: 08/23/16 01:59 Dose: Not Given Flumazenil (Romazicon) 0.1 mg IVPUSH ONETIME ONE Stop: 08/22/16 21:04 Last Admin: 08/22/16 21:32 Dose: 0.1 mg Lactated Ringer's (Ringers, Lactated) 1,000 mls @ 125 mls/hr IV ONETIME ONE Stop: 08/23/16 05:13 Last Admin: 08/22/16 21:17 Dose: 125 mls/hr Magnesium Sulfate 2 gm/ Premix 50 mls @ 25 mls/hr IV ONETIME ONE Stop: 08/23/16 14:01 Last Admin: 08/23/16 12:37 Dose: 25 mls/hr Lactated Ringer's (Ringers, Lactated) 1,000 mls @ 125 mls/hr IV ASDIRECTED [facility] Stop: 08/26/16 23:00 Lidocaine HCl (Xylocaine-Mpf 1%) Confirm Administered Dose 6 mls @ as directed .ROUTE .STK-MED ONE Stop: 08/26/16 06:56 Lactated Ringer's (Ringers, Lactated) Confirm Administered Dose 1,000 mls @ as directed .ROUTE .STK-MED ONE Stop: 08/26/16 06:56 Ibuprofen (Motrin) 600 mg PO Q6H PRN PRN Reason: pain Last Admin: 08/27/16 05:50 Dose: 600 mg Lidocaine/Sodium Bicarbonate (Buffered Lidocaine 1% In Ns 8.4%) 0.25 ml IV ONETIME PRN PRN Reason: Prior to IV Start Stop: 08/26/16 18:00 Lisinopril (Prinivil) 5 mg PO DAILY [facility] Last Admin: 08/27/16 10:28 Dose: Not Given Lorazepam (Ativan) Confirm Administered Dose 2 mg .ROUTE .STK-MED ONE Stop: 08/23/16 00:04 Last Admin: 08/23/16 00:03 Dose: 2 mg Lorazepam (Ativan) 2 mg IVPUSH Q2H PRN PRN Reason: Anxiety Last Admin: 08/23/16 01:50 Dose: 2 mg Metoprolol Tartrate (Lopressor) 25 mg PO BID [facility] Last Admin: 08/23/16 08:49 Dose: 25 mg Midazolam HCl (Versed 1 Mg/Ml) Confirm Administered Dose 2 mg .ROUTE .STK-MED ONE Stop: 08/26/16 06:58 Naloxone HCl (Narcan) Confirm Administered Dose 2 mg .ROUTE .STK-MED ONE Stop: 08/22/16 20:50 Last Admin: 08/23/16 01:59 Dose: Not Given Naloxone HCl (Narcan) 1 mg IVPUSH ONETIME ONE Stop: 08/22/16 21:04 Last Admin: 08/22/16 21:19 Dose: 1 mg Naloxone HCl (Narcan) 1 mg IVPUSH ONETIME ONE Stop: 08/22/16 21:06 Last Admin: 08/22/16 21:19 Dose: 1 mg Ondansetron HCl (Zofran) 4 mg IVPUSH ONETIME ONE Stop: 08/22/16 21:15 Last Admin: 08/22/16 21:17 Dose: 4 mg Polyethylene Glycol/Electrolytes (Golytely) 4,000 ml PO ONETIME ONE Stop: 08/25/16 17:01 Last Admin: 08/25/16 17:01 Dose: 4,000 ml Potassium Chloride (Potassium Chloride) 40 meq PO BID [facility] Stop: 08/25/16 21:01 Last Admin: 08/25/16 20:15 Dose: 40 meq Propofol (Diprivan 20 Ml) Confirm Administered Dose 200 mg .ROUTE .STK-MED ONE Stop: 08/26/16 06:57 Propofol (Diprivan 20 Ml) Confirm Administered Dose 200 mg .ROUTE .STK-MED ONE Stop: 08/26/16 08:18 Sodium Chloride (Saline Flush) 10 ml FLUSH ASDIRECTED PRN PRN Reason: Keep Vein Open Stop: 08/26/16 18:00 - Exam Quality Assessment: DVT prophylaxis General: alert, oriented, no acute distress HEENT: Pupils equal, Pupils reactive, EOMI Neck: supple, trachea midline Lungs: Clear to auscultation, Normal respiratory effort Cardiovascular: Regular Rate, Regular Rhythm Abdomen: bowel sounds present, soft, no tenderness, no distension (Male) Exam: Deferred Back Exam: Normal Inspection Extremities: normal pulses Skin: warm Neurological: no new focal deficit, normal gait, normal speech Psy/Mental Status: alert, normal affect, normal mood - Problem List & Annotations (1) Alcohol intoxication SNOMED Code(s): 54098236 Code(s): F10.929 - ALCOHOL USE, UNSPECIFIED WITH INTOXICATION, UNSPECIFIED Status: Acute Priority: High Current Visit: Yes (2) Suicidal intent SNOMED Code(s): 559967067 Code(s): R45.851 - SUICIDAL IDEATIONS Status: Acute Priority: High Current Visit: Yes (3) Anemia SNOMED Code(s): 821590796 Code(s): D64.9 - ANEMIA, UNSPECIFIED Status: Acute Priority: High Current Visit: Yes Qualifiers: Anemia type: unspecified type Qualified Code(s): D64.9 - Anemia, unspecified (4) GERD (gastroesophageal reflux disease) SNOMED Code(s): 460562063 Code(s): K21.9 - GASTRO-ESOPHAGEAL REFLUX DISEASE WITHOUT ESOPHAGITIS Status: Acute Current Visit: No (5) Hypertension SNOMED Code(s): 63236750 Code(s): I10 - ESSENTIAL (PRIMARY) HYPERTENSION Status: Acute Current Visit: No (6) Non-cardiac chest pain SNOMED Code(s): 917775753 Code(s): R07.89 - OTHER CHEST PAIN Status: Acute Current Visit: No (7) Depression SNOMED Code(s): 83638623 Code(s): F32.9 - MAJOR DEPRESSIVE DISORDER, SINGLE EPISODE, UNSPECIFIED Status: Acute Priority: High Current Visit: Yes Qualifiers: Depression Type: unspecified Qualified Code(s): F32.9 - Major depressive disorder, single episode, unspecified - Problem List Review Problem List Initiated/Reviewed/Updated: Yes - My Orders Last 24 Hours: My Active Orders 08/27/16 10:22 Carvedilol [Coreg] 6.52 mg PO BID 08/27/16 10:24 Ibuprofen [Motrin] 600 mg PO Q8H PRN 08/27/16 18:00 Warfarin [Coumadin] 2.5 mg PO DAILY@1800 08/27/16 18:14 Alum Hydrox/Mag Hydrox/Simeth [Mag-Al Plus] 30 ml PO Q4H PRN 08/27/16 21:00 Lisinopril [Prinivil] 2.5 mg PO BEDTIME 08/28/16 09:00 Pantoprazole [ProTONIX] 40 mg PO ACBREAKFAST - Plan Plan:: Impression/Plan: Depression with suicidal thoughts ?/ coupled with ETOH abuse Current suicide 1:[address] Mchugh; await early next week for available bed Personality Disorder, query borderline Anemia with no signs of acute bleeding, s/p polyp removal 20 cm from rectum; bx pending Negative Coag/Heme work up except mildy elevated DRVVT @46.2, the DRVVT mix ratio was WNL, thus negative for the Lupus inhibitor History of Coumadin use, stopped by ED physician with concern for GI blood loss. Reportedly use of Coumadin for PE/DVT; reportedly hx of familial coagulopathy; LOS>96 hours with SA/Psych/ETOH treatment-stable, however awaiting [facility] bed.
[2016-08-28] MEDS: Warfarin 2.5 MG Tab PO SCH (17:04)
[2016-08-28] MEDS: Thiamine 100 MG Tab PO SCH (21:14)
[2016-08-28] MEDS: Multivitamins,Therapeutic Tab PO SCH (21:14)
[2016-08-28] MEDS: QUEtiapine 25 MG Tab PO SCH (21:15)
[2016-08-28] MEDS: Lisinopril 10 MG Tab PO SCH (21:22)
[2016-08-29] MEDS: Levothyroxine 25 MCG Tab PO SCH (05:35)
[2016-08-29] MEDS: Pantoprazole 40 MG Tab.CR PO SCH (05:35)
[2016-08-29] MEDS: Ferrous Sulfate 325 MG Tab PO SCH (06:11)
[2016-08-29] MEDS: FLUoxetine 20 MG Cap PO SCH (08:09)
[2016-08-29] MEDS: Carvedilol 12.5 MG Tab PO SCH ×2 (08:15→21:27)
[2016-08-29] MEDS: chlordiazePOXIDE 25 MG Cap PO SCH ×2 (08:15→21:28)
[2016-08-29] MEDS: Folic Acid 1 MG Tab PO SCH (08:15)
--- NOTE | 2016-08-29 13:21 | PCM.PN ---
<Katie Mayberry M - Last Filed: 08/29/16 13:21> - General Info Date of Service: 08/29/16 Admission Dx/Problem (Free Text): Alcohol withdrawl, suicidal, anemia Otoniel is seen this afternoon sitting up at bedside eating lunch. Reports he feels "better today than I have in a long time". He remains with suicide precautions and 1:1 care. He denies suicidal thoughts to me today. No pain/discomfort. Functional Status: Reports: pain controlled, tolerating diet, ambulating, urinating. Denies: new symptoms - Review of Systems General: Reports: No Symptoms HEENT: Reports: no symptoms Pulmonary: Reports: no symptoms Cardiovascular: Reports: No Symptoms Gastrointestinal: Reports: No symptoms Genitourinary: Reports: no symptoms Musculoskeletal: Reports: no symptoms Skin: Reports: no symptoms Neurological: Reports: No Symptoms Psychiatric: Reports: no symptoms, mood lability. Denies: depression, cravings , hallucinations, suicidal ideation - Patient Data Vitals - most recent: Last Vital Signs Temp 97.9 F 08/29/16 08:50 Pulse 71 08/29/16 08:50 Resp 16 08/29/16 08:50 BP 138/78 08/29/16 08:50 Pulse Ox 98 08/29/16 08:50 Weight - most recent: 115.757 kg I&O - last 24 hours: Intake & Output 08/28/16 08/29/16 08/29/16 22:59 06:59 14:59 Intake Total 1958 800 120 Output Total 1600 Balance 358 800 120 Lab Results last 24 hrs: Laboratory Results - last 24 hr 08/29/16 08/29/16 08/29/16 Range/Units 08:29 08:29 08:29 WBC 7.43 (4.23-9.07) K/mm3 RBC 5.23 (4.63-6.08) M/mm3 Hgb 10.5 L (13.7-17.5) gm/L Hct 36.8 L (40.1-51.0) % MCV 70.4 L (79.0-92.2) fl MCH 20.1 L (25.7-32.2) pg MCHC 28.5 L (32.2-35.5) g/dl RDW Std Deviation 48.4 H (35.1-43.9) fL Plt Count 236 (163-337) K/mm3 MPV 11.3 (9.4-12.3) fl PT 10.3 (8.0-13.0) SECONDS INR 0.95 Sodium 139 (136-145) mEq/L Potassium 3.9 (3.5-5.1) mEq/L Chloride 104 (98-107) mEq/L Carbon Dioxide 24 (21-32) mEq/L Anion Gap 14.9 (5-15) BUN 17 (7-18) mg/dL Creatinine 1.3 (0.7-1.3) mg/dL Est Cr Clr Drug Dosing 82.55 mL/min Estimated GFR (MDRD) 59 (>60) mL/min BUN/Creatinine Ratio 13.1 L (14-18) Glucose 148 H (74-106) mg/dL Calcium 8.8 (8.5-10.1) mg/dL Magnesium 2.2 (1.8-2.4) mg/dl Total Bilirubin 0.5 (0.2-1.0) mg/dL AST 14 L (15-37) U/L ALT 29 (16-63) U/L Alkaline Phosphatase 78 (46-116) U/L Total Protein 7.8 (6.4-8.2) g/dl Albumin 3.5 (3.4-5.0) g/dl Globulin 4.3 gm/dL Albumin/Globulin Ratio 0.8 L (1-2) Med Orders - Current: Current Medications Al Hydroxide/Mg Hydroxide (Mag-Al Plus) 30 ml PO Q4H PRN PRN Reason: Heartburn Last Admin: 08/27/16 18:17 Dose: 30 ml Carvedilol (Coreg) 6.25 mg PO BID [facility] Last Admin: 08/29/16 08:15 Dose: 6.25 mg Chlordiazepoxide HCl (Librium) 25 mg PO BID [facility] Last Admin: 08/29/16 08:15 Dose: 25 mg Ferrous Sulfate (Ferrous Sulfate) 325 mg PO WITHBREAKFAST [facility] Last Admin: 08/29/16 06:11 Dose: 325 mg Fluoxetine HCl (Prozac) 20 mg PO DAILY [facility] Last Admin: 08/29/16 08:09 Dose: 20 mg Folic Acid (Folic Acid) 1 mg PO DAILY [facility] Last Admin: 08/29/16 08:15 Dose: 1 mg Haloperidol Lactate (Haldol) 2 mg IVPUSH Q8H PRN PRN Reason: Agitation Last Admin: 08/23/16 03:36 Dose: 2 mg Ibuprofen (Motrin) 600 mg PO Q8H PRN PRN Reason: pain Last Admin: 08/27/16 20:03 Dose: 600 mg Levothyroxine Sodium (Levothyroxine) 25 mcg PO ACBREAKFAST [facility] Last Admin: 08/29/16 05:35 Dose: 25 mcg Lisinopril (Prinivil) 2.5 mg PO BEDTIME [facility] Last Admin: 08/28/16 21:22 Dose: 2.5 mg Lorazepam (Ativan) 1 - 2 mg IVPUSH Q4H PRN; Protocol PRN Reason: Withdrawal Symptoms Lorazepam (Ativan) 1 mg PO Q4H PRN; Protocol PRN Reason: Withdrawal Symptoms Last Admin: 08/24/16 14:40 Dose: 1 mg Metoprolol Tartrate (Lopressor) 5 mg IVPUSH Q6H PRN PRN Reason: Tachycardia Multivitamins (Thera) 1 each PO BEDTIME [facility] Last Admin: 08/28/16 21:14 Dose: 1 each Pantoprazole Sodium (Protonix) 40 mg PO ACBREAKFAST [facility] Last Admin: 08/29/16 05:35 Dose: 40 mg Quetiapine Fumarate (Seroquel) 50 mg PO BEDTIME [facility] Last Admin: 08/28/16 21:15 Dose: 50 mg Temazepam (Restoril) 30 mg PO BEDTIME PRN PRN Reason: Insomnia Last Admin: 08/24/16 21:53 Dose: 30 mg Thiamine HCl (Vitamin B-1) 100 mg PO BEDTIME [facility] Last Admin: 08/28/16 21:14 Dose: 100 mg Warfarin Sodium (Coumadin) 2.5 mg PO DAILY@1800 [facility] Last Admin: 08/28/16 17:04 Dose: 2.5 mg Discontinued Medications Atropine Sulfate (Atropine) Confirm Administered Dose 0.4 mg .ROUTE .ST-MED ONE Stop: 08/26/16 08:26 Carvedilol (Coreg) 12.5 mg PO BID [facility] Last Admin: 08/27/16 10:28 Dose: Not Given Carvedilol (Coreg) 6.52 mg PO BID [facility] Last Admin: 08/28/16 21:21 Dose: 6.52 mg Chlordiazepoxide HCl (Librium) 25 mg PO QID [facility] Last Admin: 08/26/16 09:55 Dose: 25 mg Chlordiazepoxide HCl (Librium) 25 mg PO ONETIME ONE Stop: 08/23/16 01:41 Last Admin: 08/23/16 05:06 Dose: Not Given Clonidine HCl (Catapres) 0.1 mg PO Q8H [facility] Last Admin: 08/26/16 09:36 Dose: Not Given Enoxaparin Sodium (Lovenox) 40 mg SUBCUT DAILY [facility] Last Admin: 08/25/16 08:17 Dose: 40 mg Ephedrine Sulfate (Ephedrine In Ns) Confirm Administered Dose 25 mg .ROUTE .STK- MED ONE Stop: 08/26/16 07:59 Fentanyl (Sublimaze) Confirm Administered Dose 100 mcg .ROUTE .STK-MED ONE Stop: 08/26/16 06:57 Flumazenil (Romazicon) Confirm Administered Dose 0.5 mg .ROUTE .STK-MED ONE Stop: 08/22/16 20:55 Last Admin: 08/23/16 01:59 Dose: Not Given Flumazenil (Romazicon) 0.1 mg IVPUSH ONETIME ONE Stop: 08/22/16 21:04 Last Admin: 08/22/16 21:32 Dose: 0.1 mg Lactated Ringer's (Ringers, Lactated) 1,000 mls @ 125 mls/hr IV ONETIME ONE Stop: 08/23/16 05:13 Last Admin: 08/22/16 21:17 Dose: 125 mls/hr Magnesium Sulfate 2 gm/ Premix 50 mls @ 25 mls/hr IV ONETIME ONE Stop: 08/23/16 14:01 Last Admin: 08/23/16 12:37 Dose: 25 mls/hr Lactated Ringer's (Ringers, Lactated) 1,000 mls @ 125 mls/hr IV ASDIRECTED [facility] Stop: 08/26/16 23:00 Lidocaine HCl (Xylocaine-Mpf 1%) Confirm Administered Dose 6 mls @ as directed .ROUTE .STK-MED ONE Stop: 08/26/16 06:56 Lactated Ringer's (Ringers, Lactated) Confirm Administered Dose 1,000 mls @ as directed .ROUTE .STK-MED ONE Stop: 08/26/16 06:56 Ibuprofen (Motrin) 600 mg PO Q6H PRN PRN Reason: pain Last Admin: 08/27/16 05:50 Dose: 600 mg Lidocaine/Sodium Bicarbonate (Buffered Lidocaine 1% In Ns 8.4%) 0.25 ml IV ONETIME PRN PRN Reason: Prior to IV Start Stop: 08/26/16 18:00 Lisinopril (Prinivil) 5 mg PO DAILY [facility] Last Admin: 08/27/16 10:28 Dose: Not Given Lorazepam (Ativan) Confirm Administered Dose 2 mg .ROUTE .STK-MED ONE Stop: 08/23/16 00:04 Last Admin: 08/23/16 00:03 Dose: 2 mg Lorazepam (Ativan) 2 mg IVPUSH Q2H PRN PRN Reason: Anxiety Last Admin: 08/23/16 01:50 Dose: 2 mg Metoprolol Tartrate (Lopressor) 25 mg PO BID [facility] Last Admin: 08/23/16 08:49 Dose: 25 mg Midazolam HCl (Versed 1 Mg/Ml) Confirm Administered Dose 2 mg .ROUTE .STK-MED ONE Stop: 08/26/16 06:58 Naloxone HCl (Narcan) Confirm Administered Dose 2 mg .ROUTE .STK-MED ONE Stop: 08/22/16 20:50 Last Admin: 08/23/16 01:59 Dose: Not Given Naloxone HCl (Narcan) 1 mg IVPUSH ONETIME ONE Stop: 08/22/16 21:04 Last Admin: 08/22/16 21:19 Dose: 1 mg Naloxone HCl (Narcan) 1 mg IVPUSH ONETIME ONE Stop: 08/22/16 21:06 Last Admin: 08/22/16 21:19 Dose: 1 mg Ondansetron HCl (Zofran) 4 mg IVPUSH ONETIME ONE Stop: 08/22/16 21:15 Last Admin: 08/22/16 21:17 Dose: 4 mg Polyethylene Glycol/Electrolytes (Golytely) 4,000 ml PO ONETIME ONE Stop: 08/25/16 17:01 Last Admin: 08/25/16 17:01 Dose: 4,000 ml Potassium Chloride (Potassium Chloride) 40 meq PO BID [facility] Stop: 08/25/16 21:01 Last Admin: 08/25/16 20:15 Dose: 40 meq Propofol (Diprivan 20 Ml) Confirm Administered Dose 200 mg .ROUTE .STK-MED ONE Stop: 08/26/16 06:57 Propofol (Diprivan 20 Ml) Confirm Administered Dose 200 mg .ROUTE .STK-MED ONE Stop: 08/26/16 08:18 Sodium Chloride (Saline Flush) 10 ml FLUSH ASDIRECTED PRN PRN Reason: Keep Vein Open Stop: 08/26/16 18:00 - Exam Quality Assessment: DVT prophylaxis General: alert, oriented, cooperative, no acute distress HEENT: Pupils equal, Pupils reactive, EOMI, Mucous membr. moist/pink Neck: supple Lungs: Clear to auscultation, Normal respiratory effort Cardiovascular: Regular Rate, Regular Rhythm Abdomen: bowel sounds present, soft, no tenderness (Male) Exam: Deferred Extremities: no edema Neurological: no new focal deficit Psy/Mental Status: alert, normal affect, normal mood - Problem List & Annotations (1) Alcohol intoxication SNOMED Code(s): 20087729 Code(s): F10.929 - ALCOHOL USE, UNSPECIFIED WITH INTOXICATION, UNSPECIFIED Status: Resolved Priority: High Current Visit: Yes Qualifiers: Complication of substance-induced condition: with unspecified complication Qualified Code(s): F10.929 - Alcohol use, unspecified with intoxication, unspecified (2) Suicidal intent SNOMED Code(s): 196015499 Code(s): R45.851 - SUICIDAL IDEATIONS Status: Acute Priority: High Current Visit: Yes (3) Depression SNOMED Code(s): 88415597 Code(s): F32.9 - MAJOR DEPRESSIVE DISORDER, SINGLE EPISODE, UNSPECIFIED Status: Acute Priority: High Current Visit: Yes Qualifiers: Depression Type: unspecified Qualified Code(s): F32.9 - Major depressive disorder, single episode, unspecified (4) Anemia SNOMED Code(s): 907687157 Code(s): D64.9 - ANEMIA, UNSPECIFIED Status: Acute Priority: High Current Visit: Yes Qualifiers: Anemia type: unspecified type Qualified Code(s): D64.9 - Anemia, unspecified - Problem List Review Problem List Initiated/Reviewed/Updated: Yes - Plan Plan:: Impression/Plan: Depression with suicidal thoughts ?/ coupled with ETOH use/abuse/dependence Current suicide 1:1 and suicide precautions Medication per Dr Mchugh, Psychiatry; await available bed at [facility] as patient is committed Personality Disorder, query borderline with maniuplative behaviors Anemia with no signs of acute bleeding, s/p polyp removal 20 cm from rectum; bx pending -Continue iron supplementation, thiamine, MVI -Cont GI prophylax -Negative Coag/Heme work up except mildy elevated DRVVT @46.2, the DRVVT mix ratio was WNL, thus negative for the Lupus inhibitor -History of Coumadin use, stopped by ED physician with concern for GI blood loss. 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 Hx of CAD/MT -Recent echo during this hospital stay WNL. Normal EF, no valvular concerns or CMP. -Cont current medications Other: GI/DVT prophylax CM/SW for assistance with DC planning- transfer to [facility] once bed available. Patient is medically stable for discharge at this time. LOS>96 hours with SA/Psych/ETOH treatment-stable, however awaiting [facility] bed. <Marisol Arceo - Last Filed: 08/29/16 15:34> - Patient Data Vitals - most recent: Last Vital Signs Temp 36.6 C 08/29/16 08:50 Pulse 71 08/29/16 08:50 Resp 16 08/29/16 08:50 BP 138/78 08/29/16 08:50 Pulse Ox 98 08/29/16 08:50 I&O - last 24 hours: Intake & Output 08/29/16 08/29/16 08/29/16 06:59 14:59 22:59 Intake Total 786 249 3880 Balance 732 741 7149 Lab Results last 24 hrs: Laboratory Results - last 24 hr 08/29/16 08/29/16 08/29/16 Range/Units 08:29 08:29 08:29 WBC 7.43 (4.23-9.07) K/mm3 RBC 5.23 (4.63-6.08) M/mm3 Hgb 10.5 L (13.7-17.5) gm/L Hct 36.8 L (40.1-51.0) % MCV 70.4 L (79.0-92.2) fl MCH 20.1 L (25.7-32.2) pg MCHC 28.5 L (32.2-35.5) g/dl RDW Std Deviation 48.4 H (35.1-43.9) fL Plt Count 236 (163-337) K/mm3 MPV 11.3 (9.4-12.3) fl PT 10.3 (8.0-13.0) SECONDS INR 0.95 Sodium 139 (136-145) mEq/L Potassium 3.9 (3.5-5.1) mEq/L Chloride 104 (98-107) mEq/L Carbon Dioxide 24 (21-32) mEq/L Anion Gap 14.9 (5-15) BUN 17 (7-18) mg/dL Creatinine 1.3 (0.7-1.3) mg/dL Est Cr Clr Drug Dosing 82.55 mL/min Estimated GFR (MDRD) 59 (>60) mL/min BUN/Creatinine Ratio 13.1 L (14-18) Glucose 148 H (74-106) mg/dL Calcium 8.8 (8.5-10.1) mg/dL Magnesium 2.2 (1.8-2.4) mg/dl Total Bilirubin 0.5 (0.2-1.0) mg/dL AST 14 L (15-37) U/L ALT 29 (16-63) U/L Alkaline Phosphatase 78 (46-116) U/L Total Protein 7.8 (6.4-8.2) g/dl Albumin 3.5 (3.4-5.0) g/dl Globulin 4.3 gm/dL Albumin/Globulin Ratio 0.8 L (1-2) Med Orders - Current: Current Medications Al Hydroxide/Mg Hydroxide (Mag-Al Plus) 30 ml PO Q4H PRN PRN Reason: Heartburn Last Admin: 08/27/16 18:17 Dose: 30 ml Carvedilol (Coreg) 6.25 mg PO BID [facility] Last Admin: 08/29/16 08:15 Dose: 6.25 mg Chlordiazepoxide HCl (Librium) 25 mg PO BID [facility] Last Admin: 08/29/16 08:15 Dose: 25 mg Ferrous Sulfate (Ferrous Sulfate) 325 mg PO WITHBREAKFAST [facility] Last Admin: 08/29/16 06:11 Dose: 325 mg Fluoxetine HCl (Prozac) 20 mg PO DAILY [facility] Last Admin: 08/29/16 08:09 Dose: 20 mg Folic Acid (Folic Acid) 1 mg PO DAILY [facility] Last Admin: 08/29/16 08:15 Dose: 1 mg Haloperidol Lactate (Haldol) 2 mg IVPUSH Q8H PRN PRN Reason: Agitation Last Admin: 08/23/16 03:36 Dose: 2 mg Ibuprofen (Motrin) 600 mg PO Q8H PRN PRN Reason: pain Last Admin: 08/27/16 20:03 Dose: 600 mg Levothyroxine Sodium (Levothyroxine) 25 mcg PO ACBREAKFAST [facility] Last Admin: 08/29/16 05:35 Dose: 25 mcg Lisinopril (Prinivil) 2.5 mg PO BEDTIME [facility] Last Admin: 08/28/16 21:22 Dose: 2.5 mg Lorazepam (Ativan) 1 - 2 mg IVPUSH Q4H PRN; Protocol PRN Reason: Withdrawal Symptoms Lorazepam (Ativan) 1 mg PO Q4H PRN; Protocol PRN Reason: Withdrawal Symptoms Last Admin: 08/24/16 14:40 Dose: 1 mg Metoprolol Tartrate (Lopressor) 5 mg IVPUSH Q6H PRN PRN Reason: Tachycardia Multivitamins (Thera) 1 each PO BEDTIME [facility] Last Admin: 08/28/16 21:14 Dose: 1 each Pantoprazole Sodium (Protonix) 40 mg PO ACBREAKFAST [facility] Last Admin: 08/29/16 05:35 Dose: 40 mg Quetiapine Fumarate (Seroquel) 50 mg PO BEDTIME [facility] Last Admin: 08/28/16 21:15 Dose: 50 mg Temazepam (Restoril) 30 mg PO BEDTIME PRN PRN Reason: Insomnia Last Admin: 08/24/16 21:53 Dose: 30 mg Thiamine HCl (Vitamin B-1) 100 mg PO BEDTIME [facility] Last Admin: 08/28/16 21:14 Dose: 100 mg Warfarin Sodium (Coumadin) 2.5 mg PO DAILY@1800 [facility] Last Admin: 08/28/16 17:04 Dose: 2.5 mg Discontinued Medications Atropine Sulfate (Atropine) Confirm Administered Dose 0.4 mg .ROUTE .STK-MED ONE Stop: 08/26/16 08:26 Carvedilol (Coreg) 12.5 mg PO BID [facility] Last Admin: 08/27/16 10:28 Dose: Not Given Carvedilol (Coreg) 6.52 mg PO BID [facility] Last Admin: 08/28/16 21:21 Dose: 6.52 mg Chlordiazepoxide HCl (Librium) 25 mg PO QID [facility] Last Admin: 08/26/16 09:55 Dose: 25 mg Chlordiazepoxide HCl (Librium) 25 mg PO ONETIME ONE Stop: 08/23/16 01:41 Last Admin: 08/23/16 05:06 Dose: Not Given Clonidine HCl (Catapres) 0.1 mg PO Q8H [facility] Last Admin: 08/26/16 09:36 Dose: Not Given Enoxaparin Sodium (Lovenox) 40 mg SUBCUT DAILY [facility] Last Admin: 08/25/16 08:17 Dose: 40 mg Ephedrine Sulfate (Ephedrine In Ns) Confirm Administered Dose 25 mg .ROUTE .STK- MED ONE Stop: 08/26/16 07:59 Fentanyl (Sublimaze) Confirm Administered Dose 100 mcg .ROUTE .STK-MED ONE Stop: 08/26/16 06:57 Flumazenil (Romazicon) Confirm Administered Dose 0.5 mg .ROUTE .STK-MED ONE Stop: 08/22/16 20:55 Last Admin: 08/23/16 01:59 Dose: Not Given Flumazenil (Romazicon) 0.1 mg IVPUSH ONETIME ONE Stop: 08/22/16 21:04 Last Admin: 08/22/16 21:32 Dose: 0.1 mg Lactated Ringer's (Ringers, Lactated) 1,000 mls @ 125 mls/hr IV ONETIME ONE Stop: 08/23/16 05:13 Last Admin: 08/22/16 21:17 Dose: 125 mls/hr Magnesium Sulfate 2 gm/ Premix 50 mls @ 25 mls/hr IV ONETIME ONE Stop: 08/23/16 14:01 Last Admin: 08/23/16 12:37 Dose: 25 mls/hr Lactated Ringer's (Ringers, Lactated) 1,000 mls @ 125 mls/hr IV ASDIRECTED [facility] Stop: 08/26/16 23:00 Lidocaine HCl (Xylocaine-Mpf 1%) Confirm Administered Dose 6 mls @ as directed .ROUTE .STK-MED ONE Stop: 08/26/16 06:56 Lactated Ringer's (Ringers, Lactated) Confirm Administered Dose 1,000 mls @ as directed .ROUTE .STK-MED ONE Stop: 08/26/16 06:56 Ibuprofen (Motrin) 600 mg PO Q6H PRN PRN Reason: pain Last Admin: 08/27/16 05:50 Dose: 600 mg Lidocaine/Sodium Bicarbonate (Buffered Lidocaine 1% In Ns 8.4%) 0.25 ml IV ONETIME PRN PRN Reason: Prior to IV Start Stop: 08/26/16 18:00 Lisinopril (Prinivil) 5 mg PO DAILY [facility] Last Admin: 08/27/16 10:28 Dose: Not Given Lorazepam (Ativan) Confirm Administered Dose 2 mg .ROUTE .STK-MED ONE Stop: 08/23/16 00:04 Last Admin: 08/23/16 00:03 Dose: 2 mg Lorazepam (Ativan) 2 mg IVPUSH Q2H PRN PRN Reason: Anxiety Last Admin: 08/23/16 01:50 Dose: 2 mg Metoprolol Tartrate (Lopressor) 25 mg PO BID [facility] Last Admin: 08/23/16 08:49 Dose: 25 mg Midazolam HCl (Versed 1 Mg/Ml) Confirm Administered Dose 2 mg .ROUTE .STK-MED ONE Stop: 08/26/16 06:58 Naloxone HCl (Narcan) Confirm Administered Dose 2 mg .ROUTE .STK-MED ONE Stop: 08/22/16 20:50 Last Admin: 08/23/16 01:59 Dose: Not Given Naloxone HCl (Narcan) 1 mg IVPUSH ONETIME ONE Stop: 08/22/16 21:04 Last Admin: 08/22/16 21:19 Dose: 1 mg Naloxone HCl (Narcan) 1 mg IVPUSH ONETIME ONE Stop: 08/22/16 21:06 Last Admin: 08/22/16 21:19 Dose: 1 mg Ondansetron HCl (Zofran) 4 mg IVPUSH ONETIME ONE Stop: 08/22/16 21:15 Last Admin: 08/22/16 21:17 Dose: 4 mg Polyethylene Glycol/Electrolytes (Golytely) 4,000 ml PO ONETIME ONE Stop: 08/25/16 17:01 Last Admin: 08/25/16 17:01 Dose: 4,000 ml Potassium Chloride (Potassium Chloride) 40 meq PO BID [facility] Stop: 08/25/16 21:01 Last Admin: 08/25/16 20:15 Dose: 40 meq Propofol (Diprivan 20 Ml) Confirm Administered Dose 200 mg .ROUTE .STK-MED ONE Stop: 08/26/16 06:57 Propofol (Diprivan 20 Ml) Confirm Administered Dose 200 mg .ROUTE .STK-MED ONE Stop: 08/26/16 08:18 Sodium Chloride (Saline Flush) 10 ml FLUSH ASDIRECTED PRN PRN Reason: Keep Vein Open Stop: 08/26/16 18:00 - Problem List & Annotations (1) Alcohol intoxication SNOMED Code(s): 48166127 Code(s): F10.929 - ALCOHOL USE, UNSPECIFIED WITH INTOXICATION, UNSPECIFIED Status: Resolved Priority: High Current Visit: Yes Qualifiers: Complication of substance-induced condition: with unspecified complication Qualified Code(s): F10.929 - Alcohol use, unspecified with intoxication, unspecified (2) Suicidal intent SNOMED Code(s): 873185572 Code(s): R45.851 - SUICIDAL IDEATIONS Status: Acute Priority: High Current Visit: Yes (3) Anemia SNOMED Code(s): 527177369 Code(s): D64.9 - ANEMIA, UNSPECIFIED Status: Acute Priority: High Current Visit: Yes Qualifiers: Anemia type: unspecified type Qualified Code(s): D64.9 - Anemia, unspecified (4) GERD (gastroesophageal reflux disease) SNOMED Code(s): 798679333 Code(s): K21.9 - GASTRO-ESOPHAGEAL REFLUX DISEASE WITHOUT ESOPHAGITIS Status: Acute Current Visit: No (5) Hypertension SNOMED Code(s): 79887617 Code(s): I10 - ESSENTIAL (PRIMARY) HYPERTENSION Status: Acute Current Visit: No (6) Non-cardiac chest pain SNOMED Code(s): 860048501 Code(s): R07.89 - OTHER CHEST PAIN Status: Acute Current Visit: No (7) Depression SNOMED Code(s): 45073136 Code(s): F32.9 - MAJOR DEPRESSIVE DISORDER, SINGLE EPISODE, UNSPECIFIED Status: Acute Priority: High Current Visit: Yes Qualifiers: Depression Type: unspecified Qualified Code(s): F32.9 - Major depressive disorder, single episode, unspecified - My Orders Last 24 Hours: My Active Orders 08/29/16 09:00 Carvedilol [Coreg] 6.25 mg PO BID - Plan Plan:: Stable medically, awaiting [facility] bed for duel treatment.
[2016-08-29] MEDS: Warfarin 2.5 MG Tab PO SCH (17:35)
[2016-08-29] MEDS: QUEtiapine 25 MG Tab PO SCH (21:27)
[2016-08-29] MEDS: Lisinopril 10 MG Tab PO SCH (21:28)
[2016-08-29] MEDS: Multivitamins,Therapeutic Tab PO SCH (21:29)
[2016-08-29] MEDS: Thiamine 100 MG Tab PO SCH (21:29)
[2016-08-30] MEDS: Ferrous Sulfate 325 MG Tab PO SCH (06:06)
[2016-08-30] MEDS: Pantoprazole 40 MG Tab.CR PO SCH (06:06)
[2016-08-30] MEDS: Levothyroxine 25 MCG Tab PO SCH (06:06)
--- NOTE | 2016-08-30 06:58 | PCM.PN ---
<Katie Mayberry M - Last Filed: 08/30/16 12:55> - General Info Date of Service: 08/30/16 Admission Dx/Problem (Free Text): Alcohol withdrawl, suicidal, anemia Otoniel is seen this afternoon sitting up at bedside eating lunch. He remains with suicide precautions and 1:1 care. He denies suicidal thoughts to me today. No pain/discomfort. Functional Status: Reports: pain controlled, tolerating diet, ambulating, urinating. Denies: new symptoms - Review of Systems General: Reports: No Symptoms HEENT: Reports: no symptoms Pulmonary: Reports: no symptoms Cardiovascular: Reports: No Symptoms. Denies: Chest Pain, Palpitations, Dyspnea on Exertion Gastrointestinal: Reports: No symptoms Genitourinary: Reports: no symptoms Musculoskeletal: Reports: no symptoms Neurological: Reports: No Symptoms Psychiatric: Reports: no symptoms, anxiety (intermittent). Denies: cravings, suicidal ideation - Patient Data Vitals - most recent: Last Vital Signs Temp 98.2 F 08/30/16 04:18 Pulse 70 08/30/16 04:18 Resp 16 08/30/16 04:18 BP 108/64 08/30/16 04:18 Pulse Ox 95 08/30/16 04:18 Weight - most recent: 115.394 kg I&O - last 24 hours: Intake & Output 08/29/16 08/29/16 08/30/16 14:59 22:59 06:59 Intake Total 120 1840 800 Balance 120 1840 800 Lab Results last 24 hrs: Laboratory Results - last 24 hr 08/29/16 08/29/16 08/29/16 Range/Units 08:29 08:29 08:29 WBC 7.43 (4.23-9.07) K/mm3 RBC 5.23 (4.63-6.08) M/mm3 Hgb 10.5 L (13.7-17.5) gm/L Hct 36.8 L (40.1-51.0) % MCV 70.4 L (79.0-92.2) fl MCH 20.1 L (25.7-32.2) pg MCHC 28.5 L (32.2-35.5) g/dl RDW Std Deviation 48.4 H (35.1-43.9) fL Plt Count 236 (163-337) K/mm3 MPV 11.3 (9.4-12.3) fl PT 10.3 (8.0-13.0) SECONDS INR 0.95 Sodium 139 (136-145) mEq/L Potassium 3.9 (3.5-5.1) mEq/L Chloride 104 (98-107) mEq/L Carbon Dioxide 24 (21-32) mEq/L Anion Gap 14.9 (5-15) BUN 17 (7-18) mg/dL Creatinine 1.3 (0.7-1.3) mg/dL Est Cr Clr Drug Dosing 82.55 mL/min Estimated GFR (MDRD) 59 (>60) mL/min BUN/Creatinine Ratio 13.1 L (14-18) Glucose 148 H (74-106) mg/dL Calcium 8.8 (8.5-10.1) mg/dL Magnesium 2.2 (1.8-2.4) mg/dl Total Bilirubin 0.5 (0.2-1.0) mg/dL AST 14 L (15-37) U/L ALT 29 (16-63) U/L Alkaline Phosphatase 78 (46-116) U/L Total Protein 7.8 (6.4-8.2) g/dl Albumin 3.5 (3.4-5.0) g/dl Globulin 4.3 gm/dL Albumin/Globulin Ratio 0.8 L (1-2) Med Orders - Current: Current Medications Al Hydroxide/Mg Hydroxide (Mag-Al Plus) 30 ml PO Q4H PRN PRN Reason: Heartburn Last Admin: 08/27/16 18:17 Dose: 30 ml Carvedilol (Coreg) 6.25 mg PO BID [facility] Last Admin: 08/29/16 21:27 Dose: 6.25 mg Chlordiazepoxide HCl (Librium) 25 mg PO BID [facility] Last Admin: 08/29/16 21:28 Dose: 25 mg Ferrous Sulfate (Ferrous Sulfate) 325 mg PO WITHBREAKFAST [facility] Last Admin: 08/30/16 06:06 Dose: 325 mg Fluoxetine HCl (Prozac) 20 mg PO DAILY [facility] Last Admin: 08/29/16 08:09 Dose: 20 mg Folic Acid (Folic Acid) 1 mg PO DAILY [facility] Last Admin: 08/29/16 08:15 Dose: 1 mg Furosemide (Lasix) 40 mg PO DAILY [facility] Haloperidol Lactate (Haldol) 2 mg IVPUSH Q8H PRN PRN Reason: Agitation Last Admin: 08/23/16 03:36 Dose: 2 mg Ibuprofen (Motrin) 600 mg PO Q8H PRN PRN Reason: pain Last Admin: 08/27/16 20:03 Dose: 600 mg Levothyroxine Sodium (Levothyroxine) 25 mcg PO ACBREAKFAST [facility] Last Admin: 08/30/16 06:06 Dose: 25 mcg Lisinopril (Prinivil) 2.5 mg PO BEDTIME [facility] Last Admin: 08/29/16 21:28 Dose: 2.5 mg Lorazepam (Ativan) 1 - 2 mg IVPUSH Q4H PRN; Protocol PRN Reason: Withdrawal Symptoms Lorazepam (Ativan) 1 mg PO Q4H PRN; Protocol PRN Reason: Withdrawal Symptoms Last Admin: 08/24/16 14:40 Dose: 1 mg Metoprolol Tartrate (Lopressor) 5 mg IVPUSH Q6H PRN PRN Reason: Tachycardia Multivitamins (Thera) 1 each PO BEDTIME [facility] Last Admin: 08/29/16 21:29 Dose: 1 each Pantoprazole Sodium (Protonix) 40 mg PO ACBREAKFAST [facility] Last Admin: 08/30/16 06:06 Dose: 40 mg Quetiapine Fumarate (Seroquel) 50 mg PO BEDTIME [facility] Last Admin: 08/29/16 21:27 Dose: 50 mg Temazepam (Restoril) 30 mg PO BEDTIME PRN PRN Reason: Insomnia Last Admin: 08/24/16 21:53 Dose: 30 mg Thiamine HCl (Vitamin B-1) 100 mg PO BEDTIME [facility] Last Admin: 08/29/16 21:29 Dose: 100 mg Warfarin Sodium (Coumadin) 2.5 mg PO DAILY@1800 [facility] Last Admin: 08/29/16 17:35 Dose: 2.5 mg Discontinued Medications Atropine Sulfate (Atropine) Confirm Administered Dose 0.4 mg .ROUTE .[facility]-MED ONE Stop: 08/26/16 08:26 Carvedilol (Coreg) 12.5 mg PO BID [facility] Last Admin: 08/27/16 10:28 Dose: Not Given Carvedilol (Coreg) 6.52 mg PO BID [facility] Last Admin: 08/28/16 21:21 Dose: 6.52 mg Chlordiazepoxide HCl (Librium) 25 mg PO QID [facility] Last Admin: 08/26/16 09:55 Dose: 25 mg Chlordiazepoxide HCl (Librium) 25 mg PO ONETIME ONE Stop: 08/23/16 01:41 Last Admin: 08/23/16 05:06 Dose: Not Given Clonidine HCl (Catapres) 0.1 mg PO Q8H [facility] Last Admin: 08/26/16 09:36 Dose: Not Given Enoxaparin Sodium (Lovenox) 40 mg SUBCUT DAILY [facility] Last Admin: 08/25/16 08:17 Dose: 40 mg Ephedrine Sulfate (Ephedrine In Ns) Confirm Administered Dose 25 mg .ROUTE .STK- MED ONE Stop: 08/26/16 07:59 Fentanyl (Sublimaze) Confirm Administered Dose 100 mcg .ROUTE .STK-MED ONE Stop: 08/26/16 06:57 Flumazenil (Romazicon) Confirm Administered Dose 0.5 mg .ROUTE .STK-MED ONE Stop: 08/22/16 20:55 Last Admin: 08/23/16 01:59 Dose: Not Given Flumazenil (Romazicon) 0.1 mg IVPUSH ONETIME ONE Stop: 08/22/16 21:04 Last Admin: 08/22/16 21:32 Dose: 0.1 mg Lactated Ringer's (Ringers, Lactated) 1,000 mls @ 125 mls/hr IV ONETIME ONE Stop: 08/23/16 05:13 Last Admin: 08/22/16 21:17 Dose: 125 mls/hr Magnesium Sulfate 2 gm/ Premix 50 mls @ 25 mls/hr IV ONETIME ONE Stop: 08/23/16 14:01 Last Admin: 08/23/16 12:37 Dose: 25 mls/hr Lactated Ringer's (Ringers, Lactated) 1,000 mls @ 125 mls/hr IV ASDIRECTED [facility] Stop: 08/26/16 23:00 Lidocaine HCl (Xylocaine-Mpf 1%) Confirm Administered Dose 6 mls @ as directed .ROUTE .STK-MED ONE Stop: 08/26/16 06:56 Lactated Ringer's (Ringers, Lactated) Confirm Administered Dose 1,000 mls @ as directed .ROUTE .STK-MED ONE Stop: 08/26/16 06:56 Ibuprofen (Motrin) 600 mg PO Q6H PRN PRN Reason: pain Last Admin: 08/27/16 05:50 Dose: 600 mg Lidocaine/Sodium Bicarbonate (Buffered Lidocaine 1% In Ns 8.4%) 0.25 ml IV ONETIME PRN PRN Reason: Prior to IV Start Stop: 08/26/16 18:00 Lisinopril (Prinivil) 5 mg PO DAILY [facility] Last Admin: 08/27/16 10:28 Dose: Not Given Lorazepam (Ativan) Confirm Administered Dose 2 mg .ROUTE .STK-MED ONE Stop: 08/23/16 00:04 Last Admin: 08/23/16 00:03 Dose: 2 mg Lorazepam (Ativan) 2 mg IVPUSH Q2H PRN PRN Reason: Anxiety Last Admin: 08/23/16 01:50 Dose: 2 mg Metoprolol Tartrate (Lopressor) 25 mg PO BID [facility] Last Admin: 08/23/16 08:49 Dose: 25 mg Midazolam HCl (Versed 1 Mg/Ml) Confirm Administered Dose 2 mg .ROUTE .STK-MED ONE Stop: 08/26/16 06:58 Naloxone HCl (Narcan) Confirm Administered Dose 2 mg .ROUTE .STK-MED ONE Stop: 08/22/16 20:50 Last Admin: 08/23/16 01:59 Dose: Not Given Naloxone HCl (Narcan) 1 mg IVPUSH ONETIME ONE Stop: 08/22/16 21:04 Last Admin: 08/22/16 21:19 Dose: 1 mg Naloxone HCl (Narcan) 1 mg IVPUSH ONETIME ONE Stop: 08/22/16 21:06 Last Admin: 08/22/16 21:19 Dose: 1 mg Ondansetron HCl (Zofran) 4 mg IVPUSH ONETIME ONE Stop: 08/22/16 21:15 Last Admin: 08/22/16 21:17 Dose: 4 mg Polyethylene Glycol/Electrolytes (Golytely) 4,000 ml PO ONETIME ONE Stop: 08/25/16 17:01 Last Admin: 08/25/16 17:01 Dose: 4,000 ml Potassium Chloride (Potassium Chloride) 40 meq PO BID [facility] Stop: 08/25/16 21:01 Last Admin: 08/25/16 20:15 Dose: 40 meq Propofol (Diprivan 20 Ml) Confirm Administered Dose 200 mg .ROUTE .STK-MED ONE Stop: 08/26/16 06:57 Propofol (Diprivan 20 Ml) Confirm Administered Dose 200 mg .ROUTE .STK-MED ONE Stop: 08/26/16 08:18 Sodium Chloride (Saline Flush) 10 ml FLUSH ASDIRECTED PRN PRN Reason: Keep Vein Open Stop: 08/26/16 18:00 - Exam Quality Assessment: DVT prophylaxis General: alert, oriented, cooperative, no acute distress HEENT: Pupils equal, Pupils reactive, EOMI, Mucous membr. moist/pink Neck: supple Lungs: Clear to auscultation, Normal respiratory effort Cardiovascular: Regular Rate, Regular Rhythm Abdomen: bowel sounds present, soft, no tenderness, no distension (Male) Exam: Deferred Extremities: edema (trace to ankles bilat) Neurological: no new focal deficit Psy/Mental Status: alert, normal affect, normal mood - Problem List & Annotations (1) Alcohol intoxication SNOMED Code(s): 84250188 Code(s): F10.929 - ALCOHOL USE, UNSPECIFIED WITH INTOXICATION, UNSPECIFIED Status: Resolved Priority: High Qualifiers: Complication of substance-induced condition: with unspecified complication Qualified Code(s): F10.929 - Alcohol use, unspecified with intoxication, unspecified (2) Suicidal intent SNOMED Code(s): 055457641 Code(s): R45.851 - SUICIDAL IDEATIONS Status: Acute Priority: High (3) Depression SNOMED Code(s): 65327653 Code(s): F32.9 - MAJOR DEPRESSIVE DISORDER, SINGLE EPISODE, UNSPECIFIED Status: Acute Priority: High Qualifiers: Depression Type: unspecified Qualified Code(s): F32.9 - Major depressive disorder, single episode, unspecified (4) Anemia SNOMED Code(s): 444061895 Code(s): D64.9 - ANEMIA, UNSPECIFIED Status: Acute Priority: High Qualifiers: Anemia type: unspecified type Qualified Code(s): D64.9 - Anemia, unspecified (5) Alcohol abuse SNOMED Code(s): 58436980 Code(s): F10.10 - ALCOHOL ABUSE, UNCOMPLICATED Status: Chronic Priority: High - Problem List Review Problem List Initiated/Reviewed/Updated: Yes - My Orders Last 24 Hours: My Active Orders 08/30/16 06:56 CBC W/O DIFF,HEMOGRAM [HEME] Routine 08/30/16 09:00 Furosemide [Lasix] 40 mg PO DAILY - Plan Plan:: .Impression/Plan: Depression with suicidal thoughts ?/ coupled with ETOH use/abuse/dependence Current suicide 1:1 and suicide precautions Medication per Dr Mchugh, Psychiatry; await available bed at [facility] as patient is committed Personality Disorder, query borderline with maniuplative behaviors Anemia with no signs of acute bleeding, s/p polyp removal 20 cm from rectum; bx pending---hgb stable and improving -Continue iron supplementation, thiamine, MVI -Cont GI prophylax -Negative Coag/Heme work up except mildy elevated DRVVT @46.2, the DRVVT mix ratio was WNL, thus negative for the Lupus inhibitor -History of Coumadin use, stopped by ED physician with concern for GI blood loss. 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 -Coumadin has been resumed; INR's daily Hx of CAD/MS -Recent echo during this hospital stay WNL. Normal EF, no valvular concerns or CMP. -Cont current medications Other: GI/DVT prophylax CM/SW for assistance with DC planning- transfer to [facility] once bed available. Patient is medically stable for discharge at this time. LOS>96 hours with SA/Psych/ETOH treatment-stable, however awaiting [facility] bed. <Marisol Arceo - Last Filed: 08/30/16 16:32> - Patient Data Vitals - most recent: Last Vital Signs Temp 36.7 C 08/30/16 15:06 Pulse 68 08/30/16 15:06 Resp 12 08/30/16 15:06 BP 128/74 08/30/16 15:06 Pulse Ox 99 08/30/16 15:06 I&O - last 24 hours: Intake & Output 08/30/16 08/30/16 08/30/16 06:59 14:59 22:59 Intake Total 643 865 8000 Output Total 400 Balance 800 240 640 Lab Results last 24 hrs: Laboratory Results - last 24 hr 08/23/16 08/30/16 08/30/16 Range/Units 18:20 08:42 08:42 WBC 6.92 (4.23-9.07) K/mm3 RBC 5.15 (4.63-6.08) M/mm3 Hgb 10.5 L (13.7-17.5) gm/L Hct 36.4 L (40.1-51.0) % MCV 70.7 L (79.0-92.2) fl MCH 20.4 L (25.7-32.2) pg MCHC 28.8 L (32.2-35.5) g/dl RDW Std Deviation 49.9 H (35.1-43.9) fL Plt Count 239 (163-337) K/mm3 MPV 10.8 (9.4-12.3) fl PT 14.1 10.1 (12.0-14.2) sec INR 0.93 APTT 27 (26-36) sec Thrombin Time 18.6 (15.6-20.0) sec dRVV Screen 46.2 H (31.8-45.7) sec dRVVT Mixing Study 1.0 (0.0-1.2) Hexag Phospholip Neutrl TNP b-2 Glycoprot IgG Intp <6 (0-20) CU b-2 Glycoprot IgM Intp <1 (0-20) CU Anti-Cardiolipin IgG Ab <3 (0-20) CU Anti-Cardiolipin IgM Ab <1 (0-20) CU Med Orders - Current: Current Medications Al Hydroxide/Mg Hydroxide (Mag-Al Plus) 30 ml PO Q4H PRN PRN Reason: Heartburn Last Admin: 08/27/16 18:17 Dose: 30 ml Carvedilol (Coreg) 6.25 mg PO BID [facility] Last Admin: 08/30/16 09:12 Dose: 6.25 mg Chlordiazepoxide HCl (Librium) 25 mg PO BID [facility] Last Admin: 08/30/16 09:16 Dose: 25 mg Ferrous Sulfate (Ferrous Sulfate) 325 mg PO WITHBREAKFAST [facility] Last Admin: 08/30/16 06:06 Dose: 325 mg Ferrous Sulfate (Ferrous Sulfate) 325 mg PO DAILY [facility] Last Admin: 08/30/16 14:48 Dose: Not Given Fluoxetine HCl (Prozac) 20 mg PO DAILY [facility] Last Admin: 08/30/16 09:16 Dose: 20 mg Fluoxetine HCl (Prozac) 20 mg PO DAILY [facility] Last Admin: 08/30/16 14:05 Dose: Not Given Folic Acid (Folic Acid) 1 mg PO DAILY [facility] Last Admin: 08/30/16 09:14 Dose: 1 mg Folic Acid (Folic Acid) 1 mg PO DAILY [facility] Last Admin: 08/30/16 14:06 Dose: Not Given Furosemide (Lasix) 40 mg PO DAILY [facility] Last Admin: 08/30/16 09:14 Dose: 40 mg Furosemide (Lasix) 40 mg PO DAILY [facility] Last Admin: 08/30/16 14:05 Dose: Not Given Haloperidol Lactate (Haldol) 2 mg IVPUSH Q8H PRN PRN Reason: Agitation Last Admin: 08/23/16 03:36 Dose: 2 mg Ibuprofen (Motrin) 600 mg PO Q8H PRN PRN Reason: pain Last Admin: 08/27/16 20:03 Dose: 600 mg Levothyroxine Sodium (Levothyroxine) 25 mcg PO ACBREAKFAST [facility] Last Admin: 08/30/16 06:06 Dose: 25 mcg Levothyroxine Sodium (Levothyroxine) 25 mcg PO ACBREAKFAST [facility] Last Admin: 08/30/16 14:06 Dose: Not Given Lisinopril (Prinivil) 2.5 mg PO BEDTIME [facility] Last Admin: 08/29/16 21:28 Dose: 2.5 mg Lisinopril (Prinivil) 2.5 mg PO BEDTIME [facility] Last Admin: 08/30/16 14:48 Dose: Not Given Lorazepam (Ativan) 1 - 2 mg IVPUSH Q4H PRN; Protocol PRN Reason: Withdrawal Symptoms Lorazepam (Ativan) 1 mg PO Q4H PRN; Protocol PRN Reason: Withdrawal Symptoms Last Admin: 08/24/16 14:40 Dose: 1 mg Metoprolol Tartrate (Lopressor) 5 mg IVPUSH Q6H PRN PRN Reason: Tachycardia Multivitamins (Thera) 1 each PO BEDTIME [facility] Last Admin: 08/29/16 21:29 Dose: 1 each Multivitamins (Thera) 1 each PO BEDTIME [facility] Last Admin: 08/30/16 14:15 Dose: Not Given Pantoprazole Sodium (Protonix) 40 mg PO ACBREAKFAST [facility] Last Admin: 08/30/16 06:06 Dose: 40 mg Quetiapine Fumarate (Seroquel) 50 mg PO BEDTIME [facility] Last Admin: 08/29/16 21:27 Dose: 50 mg Quetiapine Fumarate (Seroquel) 50 mg PO BEDTIME [facility] Last Admin: 08/30/16 14:48 Dose: Not Given Temazepam (Restoril) 30 mg PO BEDTIME PRN PRN Reason: Insomnia Last Admin: 08/24/16 21:53 Dose: 30 mg Thiamine HCl (Vitamin B-1) 100 mg PO BEDTIME [facility] Last Admin: 08/29/16 21:29 Dose: 100 mg Thiamine HCl (Vitamin B-1) 100 mg PO DAILY [facility] Last Admin: 08/30/16 14:06 Dose: Not Given Warfarin Sodium (Coumadin) 2.5 mg PO DAILY@1800 [facility] Last Admin: 08/29/16 17:35 Dose: 2.5 mg Warfarin Sodium (Coumadin) 2.5 mg PO ASDIRECTED [facility] Warfarin Sodium (Coumadin) 5 mg PO ASDIRECTED [facility] Discontinued Medications Atropine Sulfate (Atropine) Confirm Administered Dose 0.4 mg .ROUTE .STK-MED ONE Stop: 08/26/16 08:26 Carvedilol (Coreg) 12.5 mg PO BID [facility] Last Admin: 08/27/16 10:28 Dose: Not Given Carvedilol (Coreg) 6.52 mg PO BID [facility] Last Admin: 08/28/16 21:21 Dose: 6.52 mg Chlordiazepoxide HCl (Librium) 25 mg PO QID [facility] Last Admin: 08/26/16 09:55 Dose: 25 mg Chlordiazepoxide HCl (Librium) 25 mg PO ONETIME ONE Stop: 08/23/16 01:41 Last Admin: 08/23/16 05:06 Dose: Not Given Clonidine HCl (Catapres) 0.1 mg PO Q8H [facility] Last Admin: 08/26/16 09:36 Dose: Not Given Enoxaparin Sodium (Lovenox) 40 mg SUBCUT DAILY [facility] Last Admin: 08/25/16 08:17 Dose: 40 mg Ephedrine Sulfate (Ephedrine In Ns) Confirm Administered Dose 25 mg .ROUTE .STK- MED ONE Stop: 08/26/16 07:59 Fentanyl (Sublimaze) Confirm Administered Dose 100 mcg .ROUTE .STK-MED ONE Stop: 08/26/16 06:57 Flumazenil (Romazicon) Confirm Administered Dose 0.5 mg .ROUTE .STK-MED ONE Stop: 08/22/16 20:55 Last Admin: 08/23/16 01:59 Dose: Not Given Flumazenil (Romazicon) 0.1 mg IVPUSH ONETIME ONE Stop: 08/22/16 21:04 Last Admin: 08/22/16 21:32 Dose: 0.1 mg Lactated Ringer's (Ringers, Lactated) 1,000 mls @ 125 mls/hr IV ONETIME ONE Stop: 08/23/16 05:13 Last Admin: 08/22/16 21:17 Dose: 125 mls/hr Magnesium Sulfate 2 gm/ Premix 50 mls @ 25 mls/hr IV ONETIME ONE Stop: 08/23/16 14:01 Last Admin: 08/23/16 12:37 Dose: 25 mls/hr Lactated Ringer's (Ringers, Lactated) 1,000 mls @ 125 mls/hr IV ASDIRECTED [facility] Stop: 08/26/16 23:00 Lidocaine HCl (Xylocaine-Mpf 1%) Confirm Administered Dose 6 mls @ as directed .ROUTE .STK-MED ONE Stop: 08/26/16 06:56 Lactated Ringer's (Ringers, Lactated) Confirm Administered Dose 1,000 mls @ as directed .ROUTE .STK-MED ONE Stop: 08/26/16 06:56 Ibuprofen (Motrin) 600 mg PO Q6H PRN PRN Reason: pain Last Admin: 08/27/16 05:50 Dose: 600 mg Lidocaine/Sodium Bicarbonate (Buffered Lidocaine 1% In Ns 8.4%) 0.25 ml IV ONETIME PRN PRN Reason: Prior to IV Start Stop: 08/26/16 18:00 Lisinopril (Prinivil) 5 mg PO DAILY [facility] Last Admin: 08/27/16 10:28 Dose: Not Given Lorazepam (Ativan) Confirm Administered Dose 2 mg .ROUTE .STK-MED ONE Stop: 08/23/16 00:04 Last Admin: 08/23/16 00:03 Dose: 2 mg Lorazepam (Ativan) 2 mg IVPUSH Q2H PRN PRN Reason: Anxiety Last Admin: 08/23/16 01:50 Dose: 2 mg Metoprolol Tartrate (Lopressor) 25 mg PO BID [facility] Last Admin: 08/23/16 08:49 Dose: 25 mg Midazolam HCl (Versed 1 Mg/Ml) Confirm Administered Dose 2 mg .ROUTE .STK-MED ONE Stop: 08/26/16 06:58 Naloxone HCl (Narcan) Confirm Administered Dose 2 mg .ROUTE .STK-MED ONE Stop: 08/22/16 20:50 Last Admin: 08/23/16 01:59 Dose: Not Given Naloxone HCl (Narcan) 1 mg IVPUSH ONETIME ONE Stop: 08/22/16 21:04 Last Admin: 08/22/16 21:19 Dose: 1 mg Naloxone HCl (Narcan) 1 mg IVPUSH ONETIME ONE Stop: 08/22/16 21:06 Last Admin: 08/22/16 21:19 Dose: 1 mg Ondansetron HCl (Zofran) 4 mg IVPUSH ONETIME ONE Stop: 08/22/16 21:15 Last Admin: 08/22/16 21:17 Dose: 4 mg Polyethylene Glycol/Electrolytes (Golytely) 4,000 ml PO ONETIME ONE Stop: 08/25/16 17:01 Last Admin: 08/25/16 17:01 Dose: 4,000 ml Potassium Chloride (Potassium Chloride) 40 meq PO BID [facility] Stop: 08/25/16 21:01 Last Admin: 08/25/16 20:15 Dose: 40 meq Propofol (Diprivan 20 Ml) Confirm Administered Dose 200 mg .ROUTE .STK-MED ONE Stop: 08/26/16 06:57 Propofol (Diprivan 20 Ml) Confirm Administered Dose 200 mg .ROUTE .STK-MED ONE Stop: 08/26/16 08:18 Sodium Chloride (Saline Flush) 10 ml FLUSH ASDIRECTED PRN PRN Reason: Keep Vein Open Stop: 08/26/16 18:00 - Problem List & Annotations (1) Alcohol intoxication SNOMED Code(s): 28037755 Code(s): F10.929 - ALCOHOL USE, UNSPECIFIED WITH INTOXICATION, UNSPECIFIED Status: Resolved Priority: High Qualifiers: Complication of substance-induced condition: with unspecified complication Qualified Code(s): F10.929 - Alcohol use, unspecified with intoxication, unspecified (2) Suicidal intent SNOMED Code(s): 867277206 Code(s): R45.851 - SUICIDAL IDEATIONS Status: Acute Priority: High (3) Anemia SNOMED Code(s): 564441736 Code(s): D64.9 - ANEMIA, UNSPECIFIED Status: Acute Priority: High Qualifiers: Anemia type: unspecified type Qualified Code(s): D64.9 - Anemia, unspecified (4) GERD (gastroesophageal reflux disease) SNOMED Code(s): 255935988 Code(s): K21.9 - GASTRO-ESOPHAGEAL REFLUX DISEASE WITHOUT ESOPHAGITIS Status: Acute (5) Hypertension SNOMED Code(s): 00444184 Code(s): I10 - ESSENTIAL (PRIMARY) HYPERTENSION Status: Acute (6) Non-cardiac chest pain SNOMED Code(s): 487257415 Code(s): R07.89 - OTHER CHEST PAIN Status: Acute (7) Depression SNOMED Code(s): 44394480 Code(s): F32.9 - MAJOR DEPRESSIVE DISORDER, SINGLE EPISODE, UNSPECIFIED Status: Acute Priority: High Qualifiers: Depression Type: unspecified Qualified Code(s): F32.9 - Major depressive disorder, single episode, unspecified - Plan Plan:: Has been accepted to [facility], have discussed course of treatment with Lavonne, .
[2016-08-30] MEDS ORDERED: Furosemide 40 MG Tab PO SCH ×2 (09:00→13:45)
[2016-08-30] MEDS: Carvedilol 12.5 MG Tab PO SCH (09:12)
[2016-08-30] MEDS: Folic Acid 1 MG Tab PO SCH (09:14)
[2016-08-30] MEDS: chlordiazePOXIDE 25 MG Cap PO SCH (09:16)
[2016-08-30] MEDS: FLUoxetine 20 MG Cap PO SCH (09:16)
--- NOTE | 2016-08-30 12:58 | PCM.DCSUM1 ---
<Katie Mayberry M - Last Filed: 08/30/16 13:09> Discharge Summary - Hospital Course Free Text/Narrative:: 45 year old male presented as a medical, LOC had been found unresponsive in hotel room. Was responsive to pain initially on site, had told the EMS service that he wanted to harm himself. Had a documented SHELLI 0.26; drug screen was unremarkable. Was seen about a week ago, and at that time taken off of his coumadin due to probable GI blood loss. He was to have had a GI work up by Dr Clarke as an outpatient arranged by the ED department. He had been treated as an inpatient by a [facility] for alcohol dependent /abuser recently and was apparently sober for 8 weeks. 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 His most recent girlfriend is still and also had an without considering his wishes. When interviewed by the hospitalist service, the patient denied wanting to hurt himself. However he had earlier admitted it to EMS as previously stated. He agreeable to inpatient treatment, and will be admitted to the ICU. Patient was maintained on CIWA protocol with ativan PRN, librium, clonidine. Echo was obtained due to hx of CAD/AMI with normal EF, no valvular pathology noted. Anemia, hgb, continued to trend down. Dr. Strauss was consulted who performed EGD and Colonoscopy. Colonoscopy was with one polypectomy, otherwise unremarkable. EGD was unremarkable. Iron studies were with low iron levels, started on oral iron supplementation. Dr. Mchugh, Psychiatry was consulted who started him on Prozac daily. Chad Rodriguez LAC consulted who committed him for inpatient treatment. Labs stable, VSS. He is through his detox period safely and is medically safe for discharge today. [place] be [place] [facility] [place] plans for transfer [place] [facility] when bed available. - Discharge Data Discharge Date: 08/30/16 (admit date 08/22/16) Discharge Disposition: DC/Tfer to Other 70 Condition: Good - Discharge Diagnosis/Problem(s) (1) Alcohol intoxication SNOMED Code(s): 47476131 ICD Code: F10.929 - ALCOHOL USE, UNSPECIFIED WITH INTOXICATION, UNSPECIFIED Status: Resolved Priority: High Qualifiers: Complication of substance-induced condition: with unspecified complication Qualified Code(s): F10.929 - Alcohol use, unspecified with intoxication, unspecified (2) Suicidal intent SNOMED Code(s): 055484730 ICD Code: R45.851 - SUICIDAL IDEATIONS Status: Acute Priority: High (3) Depression SNOMED Code(s): 63451273 ICD Code: F32.9 - MAJOR DEPRESSIVE DISORDER, SINGLE EPISODE, UNSPECIFIED Status: Acute Priority: High Qualifiers: Depression Type: unspecified Qualified Code(s): F32.9 - Major depressive disorder, single episode, unspecified (4) Anemia SNOMED Code(s): 350776852 ICD Code: D64.9 - ANEMIA, UNSPECIFIED Status: Acute Priority: High Qualifiers: Anemia type: unspecified type Qualified Code(s): D64.9 - Anemia, unspecified (5) Alcohol abuse SNOMED Code(s): 71915958 ICD Code: F10.10 - ALCOHOL ABUSE, UNCOMPLICATED Status: Chronic Priority : High - Patient Summary/Data Operative Procedure(s) Performed: EGD/colonoscopy with polypectomy with Dr. Baltazar Strauss Complications: None Consults: Consultations 08/23/16 01:47 Consult to Physician [CONS] Routine Consult to Museum Registrar [CONS] Routine 08/23/16 01:51 Consult to Physician [CONS] Routine 08/23/16 05:04 Consult for Substance Abuse [CONS] Routine 08/25/16 09:55 Consult to Physician [CONS] Routine 08/25/16 10:07 Consult to Physician [CONS] Routine Labs Pending at D/C: None Recommended Follow-up Testing/Procedures: DC to [facility] inpatient bed until transfer to [facility] Planned Operative Procedure(s) after DC: None Hospital Course: As above - Patient Instructions Diet: Heart Healthy Diet Activity: As Tolerated Driving: Do Not Drive Showering/Bathing: May Shower Notify Provider of: Fever, Increased Pain, Nausea and/or Vomiting - Discharge Plan Prescriptions/Med Rec: FLUoxetine [PROzac] 20 mg PO DAILY #30 cap Ferrous Sulfate 325 mg PO WITHBREAKFAST #30 tablet Folic Acid 1 mg PO DAILY #30 tablet Furosemide [Lasix] 40 mg PO DAILY #30 tablet Levothyroxine 25 mcg PO DAILY #60 tablet Lisinopril [Prinivil] 2.5 mg PO BEDTIME #30 tablet Multivitamins,Therapeutic [Thera] 1 each PO BEDTIME #30 tablet QUEtiapine [SEROquel] 50 mg PO BEDTIME #30 tablet Thiamine [Vitamin B-1] 100 mg PO BEDTIME #30 tablet Warfarin [Coumadin] 2.5 mg PO ASDIRECTED #30 tablet Warfarin [Coumadin] 5 mg PO ASDIRECTED #30 tablet Home Medications: Home Meds Omeprazole [Prilosec] 20 mg PO DAILY 10/02/14 [History] Carvedilol 6.25 mg PO BID 08/16/16 [History] FLUoxetine [PROzac] 20 mg PO DAILY #30 cap 08/30/16 [Rx] Ferrous Sulfate 325 mg PO WITHBREAKFAST #30 tablet 08/30/16 [Rx] Folic Acid 1 mg PO DAILY #30 tablet 08/30/16 [Rx] Furosemide [Lasix] 40 mg PO DAILY #30 tablet 08/30/16 [Rx] Levothyroxine 25 mcg PO DAILY #60 tablet 08/30/16 [Rx] Lisinopril [Prinivil] 2.5 mg PO BEDTIME #30 tablet 08/30/16 [Rx] Multivitamins,Therapeutic [Thera] 1 each PO BEDTIME #30 tablet 08/30/16 [Rx] QUEtiapine [SEROquel] 50 mg PO BEDTIME #30 tablet 08/30/16 [Rx] Thiamine [Vitamin B-1] 100 mg PO BEDTIME #30 tablet 08/30/16 [Rx] Warfarin [Coumadin] 2.5 mg PO ASDIRECTED #30 tablet 08/30/16 [Rx] Warfarin [Coumadin] 5 mg PO ASDIRECTED #30 tablet 08/30/16 [Rx] Patient Handouts: Alcohol Use Disorder, Suicidal Feelings: How to Help Yourself , Alcohol Intoxication, Zazb-[id number]-Ukhz, Alcohol Withdrawal, Rosv-by-Vdmi Forms: ED Department Discharge Referrals: PCP,Not In Area [Primary Care Provider] - - Discharge Summary/Plan Comment DC Time >30 min.: Yes (40 min) - Review of Systems General: Reports: No Symptoms HEENT: Reports: no symptoms Pulmonary: Reports: no symptoms Cardiovascular: Reports: No Symptoms Gastrointestinal: Reports: No symptoms Genitourinary: Reports: no symptoms Musculoskeletal: Reports: no symptoms Skin: Reports: no symptoms Neurological: Reports: No Symptoms Psychiatric: Reports: no symptoms. Denies: suicidal ideation (denies suicidal ideations today) - Patient Data Vitals - Most Recent: Last Vital Signs Temp 98.1 F 08/30/16 10:30 Pulse 73 08/30/16 10:30 Resp 16 08/30/16 10:30 BP 133/78 08/30/16 10:30 Pulse Ox 97 08/30/16 10:30 Weight - Most Recent: 115.394 kg I&O - Last 24 hours: Intake & Output 08/29/16 08/30/16 08/30/16 22:59 06:59 14:59 Intake Total 1840 800 240 Balance 1840 800 240 Lab Results - Last 24 hrs: Laboratory Results - last 24 hr 08/30/16 08/30/16 Range/Units 08:42 08:42 WBC 6.92 (4.23-9.07) K/mm3 RBC 5.15 (4.63-6.08) M/mm3 Hgb 10.5 L (13.7-17.5) gm/L Hct 36.4 L (40.1-51.0) % MCV 70.7 L (79.0-92.2) fl MCH 20.4 L (25.7-32.2) pg MCHC 28.8 L (32.2-35.5) g/dl RDW Std Deviation 49.9 H (35.1-43.9) fL Plt Count 239 (163-337) K/mm3 MPV 10.8 (9.4-12.3) fl PT 10.1 (8.0-13.0) SECONDS INR 0.93 Med Orders - Current: Current Medications Al Hydroxide/Mg Hydroxide (Mag-Al Plus) 30 ml PO Q4H PRN PRN Reason: Heartburn Last Admin: 08/27/16 18:17 Dose: 30 ml Carvedilol (Coreg) 6.25 mg PO BID [facility] Last Admin: 08/30/16 09:12 Dose: 6.25 mg Chlordiazepoxide HCl (Librium) 25 mg PO BID [facility] Last Admin: 08/30/16 09:16 Dose: 25 mg Ferrous Sulfate (Ferrous Sulfate) 325 mg PO WITHBREAKFAST [facility] Last Admin: 08/30/16 06:06 Dose: 325 mg Fluoxetine HCl (Prozac) 20 mg PO DAILY [facility] Last Admin: 08/30/16 09:16 Dose: 20 mg Folic Acid (Folic Acid) 1 mg PO DAILY [facility] Last Admin: 08/30/16 09:14 Dose: 1 mg Furosemide (Lasix) 40 mg PO DAILY [facility] Last Admin: 08/30/16 09:14 Dose: 40 mg Haloperidol Lactate (Haldol) 2 mg IVPUSH Q8H PRN PRN Reason: Agitation Last Admin: 08/23/16 03:36 Dose: 2 mg Ibuprofen (Motrin) 600 mg PO Q8H PRN PRN Reason: pain Last Admin: 08/27/16 20:03 Dose: 600 mg Levothyroxine Sodium (Levothyroxine) 25 mcg PO ACBREAKFAST [facility] Last Admin: 08/30/16 06:06 Dose: 25 mcg Lisinopril (Prinivil) 2.5 mg PO BEDTIME [facility] Last Admin: 08/29/16 21:28 Dose: 2.5 mg Lorazepam (Ativan) 1 - 2 mg IVPUSH Q4H PRN; Protocol PRN Reason: Withdrawal Symptoms Lorazepam (Ativan) 1 mg PO Q4H PRN; Protocol PRN Reason: Withdrawal Symptoms Last Admin: 08/24/16 14:40 Dose: 1 mg Metoprolol Tartrate (Lopressor) 5 mg IVPUSH Q6H PRN PRN Reason: Tachycardia Multivitamins (Thera) 1 each PO BEDTIME [facility] Last Admin: 08/29/16 21:29 Dose: 1 each Pantoprazole Sodium (Protonix) 40 mg PO ACBREAKFAST [facility] Last Admin: 08/30/16 06:06 Dose: 40 mg Quetiapine Fumarate (Seroquel) 50 mg PO BEDTIME [facility] Last Admin: 08/29/16 21:27 Dose: 50 mg Temazepam (Restoril) 30 mg PO BEDTIME PRN PRN Reason: Insomnia Last Admin: 08/24/16 21:53 Dose: 30 mg Thiamine HCl (Vitamin B-1) 100 mg PO BEDTIME [facility] Last Admin: 08/29/16 21:29 Dose: 100 mg Warfarin Sodium (Coumadin) 2.5 mg PO DAILY@1800 [facility] Last Admin: 08/29/16 17:35 Dose: 2.5 mg Discontinued Medications Atropine Sulfate (Atropine) Confirm Administered Dose 0.4 mg .ROUTE .STK-MED ONE Stop: 08/26/16 08:26 Carvedilol (Coreg) 12.5 mg PO BID [facility] Last Admin: 08/27/16 10:28 Dose: Not Given Carvedilol (Coreg) 6.52 mg PO BID [facility] Last Admin: 08/28/16 21:21 Dose: 6.52 mg Chlordiazepoxide HCl (Librium) 25 mg PO QID [facility] Last Admin: 08/26/16 09:55 Dose: 25 mg Chlordiazepoxide HCl (Librium) 25 mg PO ONETIME ONE Stop: 08/23/16 01:41 Last Admin: 08/23/16 05:06 Dose: Not Given Clonidine HCl (Catapres) 0.1 mg PO Q8H [facility] Last Admin: 08/26/16 09:36 Dose: Not Given Enoxaparin Sodium (Lovenox) 40 mg SUBCUT DAILY [facility] Last Admin: 08/25/16 08:17 Dose: 40 mg Ephedrine Sulfate (Ephedrine In Ns) Confirm Administered Dose 25 mg .ROUTE .STK- MED ONE Stop: 08/26/16 07:59 Fentanyl (Sublimaze) Confirm Administered Dose 100 mcg .ROUTE .STK-MED ONE Stop: 08/26/16 06:57 Flumazenil (Romazicon) Confirm Administered Dose 0.5 mg .ROUTE .STK-MED ONE Stop: 08/22/16 20:55 Last Admin: 08/23/16 01:59 Dose: Not Given Flumazenil (Romazicon) 0.1 mg IVPUSH ONETIME ONE Stop: 08/22/16 21:04 Last Admin: 08/22/16 21:32 Dose: 0.1 mg Lactated Ringer's (Ringers, Lactated) 1,000 mls @ 125 mls/hr IV ONETIME ONE Stop: 08/23/16 05:13 Last Admin: 08/22/16 21:17 Dose: 125 mls/hr Magnesium Sulfate 2 gm/ Premix 50 mls @ 25 mls/hr IV ONETIME ONE Stop: 08/23/16 14:01 Last Admin: 08/23/16 12:37 Dose: 25 mls/hr Lactated Ringer's (Ringers, Lactated) 1,000 mls @ 125 mls/hr IV ASDIRECTED [facility] Stop: 08/26/16 23:00 Lidocaine HCl (Xylocaine-Mpf 1%) Confirm Administered Dose 6 mls @ as directed .ROUTE .STK-MED ONE Stop: 08/26/16 06:56 Lactated Ringer's (Ringers, Lactated) Confirm Administered Dose 1,000 mls @ as directed .ROUTE .STK-MED ONE Stop: 08/26/16 06:56 Ibuprofen (Motrin) 600 mg PO Q6H PRN PRN Reason: pain Last Admin: 08/27/16 05:50 Dose: 600 mg Lidocaine/Sodium Bicarbonate (Buffered Lidocaine 1% In Ns 8.4%) 0.25 ml IV ONETIME PRN PRN Reason: Prior to IV Start Stop: 08/26/16 18:00 Lisinopril (Prinivil) 5 mg PO DAILY [facility] Last Admin: 08/27/16 10:28 Dose: Not Given Lorazepam (Ativan) Confirm Administered Dose 2 mg .ROUTE .STK-MED ONE Stop: 08/23/16 00:04 Last Admin: 08/23/16 00:03 Dose: 2 mg Lorazepam (Ativan) 2 mg IVPUSH Q2H PRN PRN Reason: Anxiety Last Admin: 08/23/16 01:50 Dose: 2 mg Metoprolol Tartrate (Lopressor) 25 mg PO BID [facility] Last Admin: 08/23/16 08:49 Dose: 25 mg Midazolam HCl (Versed 1 Mg/Ml) Confirm Administered Dose 2 mg .ROUTE .STK-MED ONE Stop: 08/26/16 06:58 Naloxone HCl (Narcan) Confirm Administered Dose 2 mg .ROUTE .STK-MED ONE Stop: 08/22/16 20:50 Last Admin: 08/23/16 01:59 Dose: Not Given Naloxone HCl (Narcan) 1 mg IVPUSH ONETIME ONE Stop: 08/22/16 21:04 Last Admin: 08/22/16 21:19 Dose: 1 mg Naloxone HCl (Narcan) 1 mg IVPUSH ONETIME ONE Stop: 08/22/16 21:06 Last Admin: 08/22/16 21:19 Dose: 1 mg Ondansetron HCl (Zofran) 4 mg IVPUSH ONETIME ONE Stop: 08/22/16 21:15 Last Admin: 08/22/16 21:17 Dose: 4 mg Polyethylene Glycol/Electrolytes (Golytely) 4,000 ml PO ONETIME ONE Stop: 08/25/16 17:01 Last Admin: 08/25/16 17:01 Dose: 4,000 ml Potassium Chloride (Potassium Chloride) 40 meq PO BID [facility] Stop: 08/25/16 21:01 Last Admin: 08/25/16 20:15 Dose: 40 meq Propofol (Diprivan 20 Ml) Confirm Administered Dose 200 mg .ROUTE .STK-MED ONE Stop: 08/26/16 06:57 Propofol (Diprivan 20 Ml) Confirm Administered Dose 200 mg .ROUTE .STK-MED ONE Stop: 08/26/16 08:18 Sodium Chloride (Saline Flush) 10 ml FLUSH ASDIRECTED PRN PRN Reason: Keep Vein Open Stop: 08/26/16 18:00 - Exam Quality Assessment: Reports: DVT prophylaxis General: Reports: alert, oriented, cooperative, no acute distress HEENT: Reports: Pupils equal, Pupils reactive, EOMI, Mucous membr. moist/pink Neck: Reports: supple Lungs: Reports: Clear to auscultation, Normal respiratory effort Cardiovascular: Reports: Regular Rate, Regular Rhythm Abdomen: Reports: bowel sounds present, soft, no tenderness, no distension (Male) Exam: Deferred Rectal (Males) Exam: Deferred Skin: Reports: warm, dry, intact Neurological: Reports: no new focal deficit Psy/Mental Status: Reports: alert, normal affect, normal mood *Q Meaningful Use (DIS) - VTE *Q VTE Criteria *Q: - Stroke *Q Stroke Criteria *Q: - AMI *Q AMI Criteria *Q: <Marisol Arceo - Last Filed: 08/30/16 16:34> Discharge Summary - Hospital Course Free Text/Narrative:: See above, DC today for treatment. - Discharge Diagnosis/Problem(s) (1) Alcohol intoxication SNOMED Code(s): 16615947 ICD Code: F10.929 - ALCOHOL USE, UNSPECIFIED WITH INTOXICATION, UNSPECIFIED Status: Resolved Priority: High Qualifiers: Complication of substance-induced condition: with unspecified complication Qualified Code(s): F10.929 - Alcohol use, unspecified with intoxication, unspecified (2) Suicidal intent SNOMED Code(s): 276983580 ICD Code: R45.851 - SUICIDAL IDEATIONS Status: Acute Priority: High (3) Anemia SNOMED Code(s): 409904750 ICD Code: D64.9 - ANEMIA, UNSPECIFIED Status: Acute Priority: High Qualifiers: Anemia type: unspecified type Qualified Code(s): D64.9 - Anemia, unspecified (4) GERD (gastroesophageal reflux disease) SNOMED Code(s): 342387221 ICD Code: K21.9 - GASTRO-ESOPHAGEAL REFLUX DISEASE WITHOUT ESOPHAGITIS Status: Acute (5) Hypertension SNOMED Code(s): 55622776 ICD Code: I10 - ESSENTIAL (PRIMARY) HYPERTENSION Status: Acute (6) Non-cardiac chest pain SNOMED Code(s): 439409824 ICD Code: R07.89 - OTHER CHEST PAIN Status: Acute (7) Depression SNOMED Code(s): 87080076 ICD Code: F32.9 - MAJOR DEPRESSIVE DISORDER, SINGLE EPISODE, UNSPECIFIED Status: Acute Priority: High Qualifiers: Depression Type: unspecified Qualified Code(s): F32.9 - Major depressive disorder, single episode, unspecified - Patient Summary/Data Consults: Consultations 08/23/16 01:47 Consult to Physician [CONS] Routine Consult to Museum Registrar [CONS] Routine 08/23/16 01:51 Consult to Physician [CONS] Routine 08/23/16 05:04 Consult for Substance Abuse [CONS] Routine 08/25/16 09:55 Consult to Physician [CONS] Routine 08/25/16 10:07 Consult to Physician [CONS] Routine - Patient Data Vitals - Most Recent: Last Vital Signs Temp 36.7 C 08/30/16 15:06 Pulse 68 08/30/16 15:06 Resp 12 08/30/16 15:06 BP 128/74 08/30/16 15:06 Pulse Ox 99 08/30/16 15:06 I&O - Last 24 hours: Intake & Output 08/30/16 08/30/16 08/30/16 06:59 14:59 22:59 Intake Total 774 256 2293 Output Total 400 Balance 800 240 640 Lab Results - Last 24 hrs: Laboratory Results - last 24 hr 08/23/16 08/30/16 08/30/16 Range/Units 18:20 08:42 08:42 WBC 6.92 (4.23-9.07) K/mm3 RBC 5.15 (4.63-6.08) M/mm3 Hgb 10.5 L (13.7-17.5) gm/L Hct 36.4 L (40.1-51.0) % MCV 70.7 L (79.0-92.2) fl MCH 20.4 L (25.7-32.2) pg MCHC 28.8 L (32.2-35.5) g/dl RDW Std Deviation 49.9 H (35.1-43.9) fL Plt Count 239 (163-337) K/mm3 MPV 10.8 (9.4-12.3) fl PT 14.1 10.1 (12.0-14.2) sec INR 0.93 APTT 27 (26-36) sec Thrombin Time 18.6 (15.6-20.0) sec dRVV Screen 46.2 H (31.8-45.7) sec dRVVT Mixing Study 1.0 (0.0-1.2) Hexag Phospholip Neutrl TNP b-2 Glycoprot IgG Intp <6 (0-20) CU b-2 Glycoprot IgM Intp <1 (0-20) CU Anti-Cardiolipin IgG Ab <3 (0-20) CU Anti-Cardiolipin IgM Ab <1 (0-20) CU Med Orders - Current: Current Medications Discontinued Medications Al Hydroxide/Mg Hydroxide (Mag-Al Plus) 30 ml PO Q4H PRN PRN Reason: Heartburn Last Admin: 08/27/16 18:17 Dose: 30 ml Atropine Sulfate (Atropine) Confirm Administered Dose 0.4 mg .ROUTE .STK-MED ONE Stop: 08/26/16 08:26 Carvedilol (Coreg) 12.5 mg PO BID [facility] Last Admin: 08/27/16 10:28 Dose: Not Given Carvedilol (Coreg) 6.52 mg PO BID [facility] Last Admin: 08/28/16 21:21 Dose: 6.52 mg Carvedilol (Coreg) 6.25 mg PO BID [facility] Last Admin: 08/30/16 09:12 Dose: 6.25 mg Chlordiazepoxide HCl (Librium) 25 mg PO QID [facility] Last Admin: 08/26/16 09:55 Dose: 25 mg Chlordiazepoxide HCl (Librium) 25 mg PO ONETIME ONE Stop: 08/23/16 01:41 Last Admin: 08/23/16 05:06 Dose: Not Given Chlordiazepoxide HCl (Librium) 25 mg PO BID [facility] Last Admin: 08/30/16 09:16 Dose: 25 mg Clonidine HCl (Catapres) 0.1 mg PO Q8H [facility] Last Admin: 08/26/16 09:36 Dose: Not Given Enoxaparin Sodium (Lovenox) 40 mg SUBCUT DAILY [facility] Last Admin: 08/25/16 08:17 Dose: 40 mg Ephedrine Sulfate (Ephedrine In Ns) Confirm Administered Dose 25 mg .ROUTE .STK- MED ONE Stop: 08/26/16 07:59 Fentanyl (Sublimaze) Confirm Administered Dose 100 mcg .ROUTE .STK-MED ONE Stop: 08/26/16 06:57 Ferrous Sulfate (Ferrous Sulfate) 325 mg PO WITHBREAKFAST [facility] Last Admin: 08/30/16 06:06 Dose: 325 mg Ferrous Sulfate (Ferrous Sulfate) 325 mg PO DAILY [facility] Last Admin: 08/30/16 14:48 Dose: Not Given Flumazenil (Romazicon) Confirm Administered Dose 0.5 mg .ROUTE .STK-MED ONE Stop: 08/22/16 20:55 Last Admin: 08/23/16 01:59 Dose: Not Given Flumazenil (Romazicon) 0.1 mg IVPUSH ONETIME ONE Stop: 08/22/16 21:04 Last Admin: 08/22/16 21:32 Dose: 0.1 mg Fluoxetine HCl (Prozac) 20 mg PO DAILY [facility] Last Admin: 08/30/16 09:16 Dose: 20 mg Fluoxetine HCl (Prozac) 20 mg PO DAILY [facility] Last Admin: 08/30/16 14:05 Dose: Not Given Folic Acid (Folic Acid) 1 mg PO DAILY [facility] Last Admin: 08/30/16 09:14 Dose: 1 mg Folic Acid (Folic Acid) 1 mg PO DAILY [facility] Last Admin: 08/30/16 14:06 Dose: Not Given Furosemide (Lasix) 40 mg PO DAILY [facility] Last Admin: 08/30/16 09:14 Dose: 40 mg Furosemide (Lasix) 40 mg PO DAILY [facility] Last Admin: 08/30/16 14:05 Dose: Not Given Haloperidol Lactate (Haldol) 2 mg IVPUSH Q8H PRN PRN Reason: Agitation Last Admin: 08/23/16 03:36 Dose: 2 mg Lactated Ringer's (Ringers, Lactated) 1,000 mls @ 125 mls/hr IV ONETIME ONE Stop: 08/23/16 05:13 Last Admin: 08/22/16 21:17 Dose: 125 mls/hr Magnesium Sulfate 2 gm/ Premix 50 mls @ 25 mls/hr IV ONETIME ONE Stop: 08/23/16 14:01 Last Admin: 08/23/16 12:37 Dose: 25 mls/hr Lactated Ringer's (Ringers, Lactated) 1,000 mls @ 125 mls/hr IV ASDIRECTED [facility] Stop: 08/26/16 23:00 Lidocaine HCl (Xylocaine-Mpf 1%) Confirm Administered Dose 6 mls @ as directed .ROUTE .STK-MED ONE Stop: 08/26/16 06:56 Lactated Ringer's (Ringers, Lactated) Confirm Administered Dose 1,000 mls @ as directed .ROUTE .STK-MED ONE Stop: 08/26/16 06:56 Ibuprofen (Motrin) 600 mg PO Q6H PRN PRN Reason: pain Last Admin: 08/27/16 05:50 Dose: 600 mg Ibuprofen (Motrin) 600 mg PO Q8H PRN PRN Reason: pain Last Admin: 08/27/16 20:03 Dose: 600 mg Levothyroxine Sodium (Levothyroxine) 25 mcg PO ACBREAKFAST [facility] Last Admin: 08/30/16 06:06 Dose: 25 mcg Levothyroxine Sodium (Levothyroxine) 25 mcg PO ACBREAKFAST [facility] Last Admin: 08/30/16 14:06 Dose: Not Given Lidocaine/Sodium Bicarbonate (Buffered Lidocaine 1% In Ns 8.4%) 0.25 ml IV ONETIME PRN PRN Reason: Prior to IV Start Stop: 08/26/16 18:00 Lisinopril (Prinivil) 5 mg PO DAILY [facility] Last Admin: 08/27/16 10:28 Dose: Not Given Lisinopril (Prinivil) 2.5 mg PO BEDTIME [facility] Last Admin: 08/29/16 21:28 Dose: 2.5 mg Lisinopril (Prinivil) 2.5 mg PO BEDTIME [facility] Last Admin: 08/30/16 14:48 Dose: Not Given Lorazepam (Ativan) Confirm Administered Dose 2 mg .ROUTE .STK-MED ONE Stop: 08/23/16 00:04 Last Admin: 08/23/16 00:03 Dose: 2 mg Lorazepam (Ativan) 2 mg IVPUSH Q2H PRN PRN Reason: Anxiety Last Admin: 08/23/16 01:50 Dose: 2 mg Lorazepam (Ativan) 1 - 2 mg IVPUSH Q4H PRN; Protocol PRN Reason: Withdrawal Symptoms Lorazepam (Ativan) 1 mg PO Q4H PRN; Protocol PRN Reason: Withdrawal Symptoms Last Admin: 08/24/16 14:40 Dose: 1 mg Metoprolol Tartrate (Lopressor) 5 mg IVPUSH Q6H PRN PRN Reason: Tachycardia Metoprolol Tartrate (Lopressor) 25 mg PO BID [facility] Last Admin: 08/23/16 08:49 Dose: 25 mg Midazolam HCl (Versed 1 Mg/Ml) Confirm Administered Dose 2 mg .ROUTE .STK-MED ONE Stop: 08/26/16 06:58 Multivitamins (Thera) 1 each PO BEDTIME [facility] Last Admin: 08/29/16 21:29 Dose: 1 each Multivitamins (Thera) 1 each PO BEDTIME [facility] Last Admin: 08/30/16 14:15 Dose: Not Given Naloxone HCl (Narcan) Confirm Administered Dose 2 mg .ROUTE .STK-MED ONE Stop: 08/22/16 20:50 Last Admin: 08/23/16 01:59 Dose: Not Given Naloxone HCl (Narcan) 1 mg IVPUSH ONETIME ONE Stop: 08/22/16 21:04 Last Admin: 08/22/16 21:19 Dose: 1 mg Naloxone HCl (Narcan) 1 mg IVPUSH ONETIME ONE Stop: 08/22/16 21:06 Last Admin: 08/22/16 21:19 Dose: 1 mg Ondansetron HCl (Zofran) 4 mg IVPUSH ONETIME ONE Stop: 08/22/16 21:15 Last Admin: 08/22/16 21:17 Dose: 4 mg Pantoprazole Sodium (Protonix) 40 mg PO ACBREAKFAST [facility] Last Admin: 08/30/16 06:06 Dose: 40 mg Polyethylene Glycol/Electrolytes (Golytely) 4,000 ml PO ONETIME ONE Stop: 08/25/16 17:01 Last Admin: 08/25/16 17:01 Dose: 4,000 ml Potassium Chloride (Potassium Chloride) 40 meq PO BID MATT Stop: 08/25/16 21:01 Last Admin: 08/25/16 20:15 Dose: 40 meq Propofol (Diprivan 20 Ml) Confirm Administered Dose 200 mg .ROUTE .STK-MED ONE Stop: 08/26/16 06:57 Propofol (Diprivan 20 Ml) Confirm Administered Dose 200 mg .ROUTE .STK-MED ONE Stop: 08/26/16 08:18 Quetiapine Fumarate (Seroquel) 50 mg PO BEDTIME [facility] Last Admin: 08/29/16 21:27 Dose: 50 mg Quetiapine Fumarate (Seroquel) 50 mg PO BEDTIME [facility] Last Admin: 08/30/16 14:48 Dose: Not Given Sodium Chloride (Saline Flush) 10 ml FLUSH ASDIRECTED PRN PRN Reason: Keep Vein Open Stop: 08/26/16 18:00 Temazepam (Restoril) 30 mg PO BEDTIME PRN PRN Reason: Insomnia Last Admin: 08/24/16 21:53 Dose: 30 mg Thiamine HCl (Vitamin B-1) 100 mg PO BEDTIME [facility] Last Admin: 08/29/16 21:29 Dose: 100 mg Thiamine HCl (Vitamin B-1) 100 mg PO DAILY [facility] Last Admin: 08/30/16 14:06 Dose: Not Given Warfarin Sodium (Coumadin) 2.5 mg PO DAILY@1800 [facility] Last Admin: 08/29/16 17:35 Dose: 2.5 mg Warfarin Sodium (Coumadin) 2.5 mg PO ASDIRECTED MATT Warfarin Sodium (Coumadin) 5 mg PO ASDIRECTED MATT *Q Meaningful Use (DIS) - VTE *Q VTE Criteria *Q: - Stroke *Q Stroke Criteria *Q: - AMI *Q AMI Criteria *Q:
[2016-08-30] MEDS ORDERED: FLUoxetine 20 MG Cap PO SCH (13:30)
[2016-08-30] MEDS ORDERED: Thiamine 100 MG Tab PO SCH (13:45)
[2016-08-30] MEDS ORDERED: Levothyroxine 25 MCG Tab PO SCH (14:00)
[2016-08-30] MEDS ORDERED: Folic Acid 1 MG Tab PO SCH (14:00)
[2016-08-30] MEDS ORDERED: Warfarin 2.5 MG Tab PO SCH (14:15)
[2016-08-30] MEDS ORDERED: Multivitamins,Therapeutic Tab PO SCH (14:15)
[2016-08-30] MEDS ORDERED: Ferrous Sulfate 325 MG Tab PO SCH (14:30)
[2016-08-30] MEDS ORDERED: Warfarin 5 MG Tab PO SCH (14:30)
[2016-08-30] MEDS ORDERED: Lisinopril 5 MG Tab PO SCH (14:30)
[2016-08-30] MEDS ORDERED: QUEtiapine 100 MG Tab PO SCH (14:45)
[2016-08-30 15:09] VITALS: BP 128/74
--- NOTE | 2016-09-20 08:28 | OR ---
DATE OF OPERATION: 08/26/2016 SURGEON: Baltazar Strauss MD PREOPERATIVE DIAGNOSIS: Gastrointestinal bleed. POSTOPERATIVE DIAGNOSIS: Gastrointestinal bleed. OPERATION PERFORMED: Esophagogastroduodenoscopy. FINDINGS: No acute source of bleeding was noted. No varices were identified. DESCRIPTION OF PROCEDURE: The patient was taken to the operating room, placed in a supine position, connected to monitoring equipment, given IV sedation, and placed in left lateral position. Bite-block was inserted and video Olympus gastroscope was placed in a posterior oropharynx, under direct vision, threaded past the cricopharyngeus, down the esophagus, into the stomach. The stomach was insufflated and the scope was passed through the pylorus to the second portion of the duodenum, slowly withdrawn showing the normal second portion of the duodenum, duodenal bulb, pyloric channel. Antrum, body, and cardia of the stomach did not show any acute inflammation. J-maneuver showed a slight hiatal hernia. No varices were identified. Scope was withdrawn to the GE junction, which did not show any acute esophagitis. Rest of the esophagus viewed as the scope withdrawn was normal. The patient tolerated the procedure, sent to recovery room and IV sedation continued for colonoscopy change. ANESTHESIA: ESTIMATED BLOOD LOSS: MMODAL /[id number]
== END 2016-08-30 16:01 | disposition other institution (70) | DRG 897 ==
LOC: JD.ED 20:46 → JD.ICU 23:48 → JD.MS 08-25 13:50
PROVIDERS: ADMIT Internal Medicine Cardiovascular Disease; ATTEND Internal Medicine Cardiovascular Disease
PROC: HZ2ZZZZ Detoxification Services for Substance Abuse Treatment (ICD-10-PCS; 2016-08-23)
PROC: 0DJ08ZZ Inspection of Upper Intestinal Tract, Via Natural or Artificial Opening Endoscopic (ICD-10-PCS; principal; 2016-08-26)
PROC: 0DBM8ZX Excision of Descending Colon, Via Natural or Artificial Opening Endoscopic, Diagnostic (ICD-10-PCS; 2016-08-26)
DX: F10.129 Alcohol abuse with intoxication, unspecified (principal); R45.851 Suicidal ideations; K92.2 Gastrointestinal hemorrhage, unspecified; Y90.0 Blood alcohol level of less than 20 mg/100 ml; F32.9 Major depressive disorder, single episode, unspecified; Z79.01 Long term (current) use of anticoagulants; D64.9 Anemia, unspecified; K21.9 Gastro-esophageal reflux disease without esophagitis; E03.9 Hypothyroidism, unspecified; R07.89 Other chest pain; Z86.718 Personal history of other venous thrombosis and embolism; Z86.711 Personal history of pulmonary embolism; Z87.19 Personal history of other diseases of the digestive system; I11.0 Hypertensive heart disease with heart failure; I25.10 Atherosclerotic heart disease of native coronary artery without angina pectoris; I50.9 Heart failure, unspecified; Z86.59 Personal history of other mental and behavioral disorders; I25.2 Old myocardial infarction
CPT/HCPCS: 00740; 36415; 36600; 51702; 70450; 70450-26; 71010; 71010-26; 80048; 80053; 80306; 81003; 81241; 82607; 82746; 82803; 83540; 83605; 83735; 83880; 84443; 84466; 84484; 85025; 85027; 85303; 85306; 85610; 85613; 85670; 85730; 86146; 86147; 93005; 93306; 96361; 96374; 96375; 99285; 99285-25; A9270-GY; G0480; J0461; J1630; J1650; J2060; J2250; J2310; J2405; J2704; J3010; J3475; J3490; J7050; J7120

== ENCOUNTER 2016-11-13 16:00 | Emergency (ER) | payer MEDICAID ==
[2016-11-13] MEDS ORDERED: Sodium Chloride 0.9% 1,000 ML IV SCH (16:45)
[2016-11-13] MEDS ORDERED: Sodium Chloride 0.9% 10 ML Syringe FLUSH PRN (16:45)
[2016-11-13] MEDS ORDERED: diphenhydrAMINE 50 MG/ML SDV IVPUSH ONE (18:44)
[2016-11-13] MEDS ORDERED: Metoclopramide 10 MG/2 ML SDV IVPUSH ONE (18:44)
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
[2016-11-13] MEDS ORDERED: Baclofen 10 MG Tab PO ONE (19:30)
[2016-11-13 19:55] VITALS: BP 162/99
== END 2016-11-13 20:35 | disposition home or self-care (01) ==
LOC: JD.ED 16:00
DX: R06.6 Hiccough (principal); K21.9 Gastro-esophageal reflux disease without esophagitis; F41.9 Anxiety disorder, unspecified; E03.9 Hypothyroidism, unspecified; F32.9 Major depressive disorder, single episode, unspecified; I10 Essential (primary) hypertension; I25.2 Old myocardial infarction; Z87.891 Personal history of nicotine dependence; Z98.890 Other specified postprocedural states; Z79.899 Other long term (current) drug therapy
CPT/HCPCS: 36415; 80053; 83735; 85025; 96361; 96372; 96374; 96375; 99284; A9270; J1200; J2765; J3230; J7040; J7050

== ENCOUNTER 2016-12-04 12:25 | Emergency (ER) | payer MEDICAID ==
[~2016-12-04 12:25] MED LIST: chlordiazePOXIDE 25 MG Cap PO SCH
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
[2016-12-04] MEDS ORDERED: LORazepam 2 MG/ML MDV IVPUSH ONE (13:49)
[2016-12-04 17:52] VITALS: BP 155/108
[2016-12-04] MEDS ORDERED: chlordiazePOXIDE 25 MG Cap PO ONE (17:55)
== END 2016-12-04 18:50 | disposition home or self-care (01) ==
LOC: JD.ED 12:25
DX: F10.230 Alcohol dependence with withdrawal, uncomplicated (principal); I10 Essential (primary) hypertension; I25.2 Old myocardial infarction; K21.9 Gastro-esophageal reflux disease without esophagitis; F41.9 Anxiety disorder, unspecified; F32.9 Major depressive disorder, single episode, unspecified; E03.9 Hypothyroidism, unspecified; E66.9 Obesity, unspecified; D64.9 Anemia, unspecified; Z79.899 Other long term (current) drug therapy; Z98.890 Other specified postprocedural states
CPT/HCPCS: 36415; 80053; 80306; 81001; 83735; 85025; 96374; 99285; A9270; G0480; J2060; 99284

== ENCOUNTER 2020-11-10 15:43 | Emergency (ER) | payer BC, MEDICAID ==
[2020-11-10] MEDS ORDERED: HYDROmorphone 0.5 MG/0.5 ML Syringe IVPUSH ONE (16:00)
[2020-11-10] MEDS ORDERED: Sodium Chloride 0.9% 10 ML Syringe FLUSH PRN (16:00)
[2020-11-10] MEDS ORDERED: Ondansetron 4 MG/2 ML SDV IVPUSH ONE (16:00)
[2020-11-10] MEDS ORDERED: Sodium Chloride 0.9% 1,000 ML IV SCH (16:00)
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
[2020-11-10] MEDS ORDERED: Iopamidol 612 MG/ML 100 ML Bottle IVPUSH ONE (16:53)
[2020-11-10] MEDS ORDERED: Iopamidol 612 MG/ML 50 ML SDV IVPUSH ONE (16:53)
[2020-11-10] MEDS ORDERED: Diatrizoate Meglumine/Diatrizoate Sodium 37% 120 ML Bottle PO ONE (16:53)
[2020-11-10] MEDS ORDERED: Sodium Chloride 0.9% 10 ML Syringe FLUSH SCH (17:00)
[2020-11-10] MEDS ORDERED: Sodium Chloride 0.9% 1,000 ML IV ONE (17:47)
[2020-11-10] MEDS ORDERED: Alum Hydrox/Mag Hydrox/Simeth 30 ML, Lidocaine 2% 15 ML PO ONE ×2 (18:32)
[2020-11-10 20:02] VITALS: BP 198/92; PULSE 72
--- NOTE | 2020-11-11 09:47 | CT ---
CT abdomen and pelvis Technique: Multiple axial sections were obtained from above the dome of the diaphragm inferiorly through the pubic symphysis. Intravenous and oral contrast were utilized. Delayed images were obtained through the bladder. Reconstructed coronal and sagittal images were obtained. Comparison: No prior abdominal imaging is available. Findings: Visualized lung bases show nothing acute. Moderate to large hiatal hernia is noted. Liver shows diffuse decreased density compatible with fatty infiltration. Spleen size is normal. Adrenal glands show no nodule. No abnormality is seen within the pancreas. Surgical clips are seen from prior cholecystectomy. Kidneys show symmetric contrast enhancement. No hydronephrosis or mass is appreciated. Delayed images show contrast within the distal ureters and within the bladder. Abdominal aorta shows no aneurysm. No retroperitoneal adenopathy is seen. No mesenteric abnormalities are noted. Small fat-containing umbilical hernia is noted. No pelvic mass or adenopathy is noted. Appendix is seen which is normal in size. Bone window settings were reviewed which show mild scattered degenerative change within the spine. Very slight anterior wedging is noted of L1 which is likely old. No acute osseous abnormality is appreciated. Impression: 1. Hiatal hernia. Fatty infiltration within the liver. 2. Other incidental findings. Nothing acute is seen. Diagnostic code #2 I agree with preliminary report from [facility], finalized on 11/10/20, 7:24 PM CDT, code 1
== END 2020-11-10 19:50 | disposition home or self-care (01) ==
LOC: JD.ED 15:43
DX: K29.00 Acute gastritis without bleeding (principal); K44.9 Diaphragmatic hernia without obstruction or gangrene; I10 Essential (primary) hypertension; I25.2 Old myocardial infarction; K21.9 Gastro-esophageal reflux disease without esophagitis; E03.9 Hypothyroidism, unspecified; D64.9 Anemia, unspecified; E66.9 Obesity, unspecified; Z68.41 Body mass index [BMI] 40.0-44.9, adult; Z79.899 Other long term (current) drug therapy; Z20.822 Contact with and (suspected) exposure to COVID-19
CPT/HCPCS: 36415; 74177; 74177-26; 80053; 81001; 83690; 85025; 86140; 96374; 96375; 99284; 99285-25; A9270-GY; J1170; J2405; J7030; Q9963; Q9967; U0002

== ENCOUNTER 2020-11-25 07:43 | Day surgery (SDC) | payer BC ==
[~2020-11-25 07:43] MED LIST changes: +Sodium Chloride 0.9% 10 ML Syringe FLUSH PRN; -chlordiazePOXIDE 25 MG Cap PO SCH
[2020-11-25] MEDS ORDERED: Propofol 200 MG/20 ML SDV ONE (07:48)
[2020-11-25] MEDS ORDERED: fentaNYL 100 MCG/2 ML SDV ONE (07:48)
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
[2020-11-25] MEDS: Lidocaine 1%/Sod Bicarbonate in NS 8.4% 1 ML Syringe IDERM PRN (08:10)
[2020-11-25] MEDS: Lactated Ringers 1,000 ML IV SCH (08:15)
--- NOTE | 2020-11-25 10:11 | PCM.OPNOTE ---
- General Post-Op/Procedure Note Date of Surgery/Procedure: 11/25/20 Operative Procedure(s): EGD Findings: 1. Ordoñez's esophagus changes 2. Hiatal hernia 3. Gastritis 4. Gastric polyp 5. Bile reflux Pre Op Diagnosis: Epigastric pain Post-Op Diagnosis: same Anesthesia Technique: MAC Primary Surgeon: Alannah Greene Anesthesia Provider: Viktoria Malcolm Pathology: 1. Z-line biopsies 2. Gastric polyp biopsy 3. Gastric antrum biopsies Fluid Replacement, Intraop: 200 EBL in mLs: 0 Condition: Good
--- NOTE | 2020-11-25 10:13 | PCM48HPAN ---
Post Anesthesia Note - EVALUATION WITHIN 48HRS OF ANESTHETIC Vital Signs in Normal Range: Yes Patient Participated in Evaluation: Yes Respiratory Function Stable: Yes Airway Patent: Yes Cardiovascular Function Stable: Yes Hydration Status Stable: Yes Pain Control Satisfactory: Yes Nausea and Vomiting Control Satisfactory: Yes Mental Status Recovered: Yes Vital Signs: Last Vital Signs Temp 99.1 11/25/20 1008 Pulse 79 11/25/20 1008 Resp 12 11/25/20 1008 BP 146/86 11/25/20 1008 Pulse Ox 92% 11/25/20 1008
--- NOTE | 2020-11-25 10:15 | PCM.PRNOTE ---
- Free Text/Narrative Note: Operative Report Date of procedure: November 25, 2020 Preoperative diagnosis: Epigastric pain Postoperative diagnosis: same Surgeon: Alannah Greene M.D. Flux Plant Operator: ISABELA Pineda Procedure: EGD Anesthesia: MAC Wallpaper Printer Helper: Viktoria Malcolm CRNA IV fluids: 200 mL Estimated blood loss: 0 mL Findings: 1. Ordoñez's esophagus changes 2. Hiatal hernia 3. Gastritis 4. Gastric polyp 5. Bile reflux Specimens: 1. Z-line biopsies 2. Gastric polyp biopsy 3. Gastric antrum biopsies Indication: The patient is a 50-year-old gentleman who presented with severe epigastric pain. The patient had a visit to the ED with findings of a type [address] her[address] seen on CT. The patient was consented for an EGD. Risk of bleeding and perforation were discussed. The patient's consent was obtained. Description of the procedure: The patient was taken to the endoscopy suite and placed on hemodynamic monitoring. The nurse generation technologist induced MAC anesthesia. A bite block was placed. The patient was positioned in the left lateral decubitus position. A timeout was performed. The endoscope was gently placed into the mouth to the back of the pharynx and introduced into the esophagus. The scope was gently advanced under direct visualization down to the level of the lower esophageal sphincter. The stomach was then entered. Normal rugal folds were noted. The scope was advanced into the antrum. We noted erythema consistent with gastritis. The pylorus was then entered and the first and second portion of the duodenum was inspected, and appeared normal. There were no ulcerations in the duodenum. The antrum was inspected again with shallow erosions noted and a polyp with inflammatory mucosa on the superficial border. The mucosa was biopsied with a cold biopsy forceps in the antrum and the polyp was biopsied. The scope was then retroflexed in the cardia and fundus were investigated. There was bilious fluid pooling in the esophagus consistent with bile reflux. The rugal folds at the level of the diaphragm were erythematous. A large hiatal hernia was noted. The scope was then withdrawn while inspecting the esophagus. There were tongues of salmon colored mucosa consistent with Ordoñez's changes. This tissue was biopsied with a cold biopsy forceps. Due to the patient's status, it was diff icult to obtain 4 quadrant biopsies. The procedure was terminated. the patient tolerated the procedure well without any evidence of complications. Alannah Greene MD General Surgery
[2020-11-25 11:25] VITALS: BP 136/72; PULSE 81
== END 2020-11-25 11:04 | disposition home or self-care (01) ==
LOC: JD.SDS 07:43
PROVIDERS: ATTEND Surgery
DX: K21.00 Gastro-esophageal reflux disease with esophagitis, without bleeding (principal); K22.70 Barrett's esophagus without dysplasia; K31.89 Other diseases of stomach and duodenum; K44.9 Diaphragmatic hernia without obstruction or gangrene; K31.7 Polyp of stomach and duodenum; K29.70 Gastritis, unspecified, without bleeding; E03.9 Hypothyroidism, unspecified; Z86.010 Personal history of colon polyps; Z79.890 Hormone replacement therapy; Z79.899 Other long term (current) drug therapy; Z87.891 Personal history of nicotine dependence
CPT/HCPCS: 36415; 43239; 85610; J2704; J3010; J7120; 00731

== ENCOUNTER 2020-12-10 16:49 | Emergency (ER) | payer BC ==
[2020-12-10 18:09] VITALS: BP 135/86; PULSE 97
[2020-12-10] MEDS ORDERED: Sodium Chloride 0.9% 1,000 ML IV STA (18:37)
--- NOTE | 2020-12-10 18:50 | EDM.PDOC ---
ED HPI GENERAL MEDICAL PROBLEM - General Chief Complaint: Abdominal Pain Stated Complaint: KIDNEY LEVELS ABNORMAL /POSSIBLE BOWEL OBSTRUCTION Time Seen by Provider: 12/10/20 18:12 Source of Information: Reports: Patient, Old Records, RN Notes Reviewed History Limitations: Reports: No Limitations - History of Present Illness INITIAL COMMENTS - FREE TEXT/NARRATIVE: Patient is a 50-year-old male presenting to the emergency department from [facility] with request to receive IV fluids and complete a CT scan of his abdomen pelvis with oral contrast. He has been doctoring with Dr. Solis, general surgeon for chronic epigastric pain. He had EGD completed approximate 2 weeks ago and was doing a follow-up with the nurse practitioner in the clinic. Blood work was repeated and he was found to have elevated BUN and creatinine. They also completed an abdomen x-ray which showed concerns of possible ileus versus partial bowel obstruction. Patient reports that the pain he is having is the same pain he has been having for a number months. Describes it as pressure with in his epigastrium. He is passing loose stools which she states has been the case for the last few months. Reports that he does pass gas when he is having a bowel movement. He did have one episode of vomiting last weekend but does not feel overly nauseous now. He has been taking omeprazole and Carafate daily, however today this was changed to Protonix and Pepcid and recommend that he stop his Carafate. He reports that he was advised that he needs to see his primary care, Dr. Sharma, soon as possible for evaluation with regards to his impaired renal function. Clinic notes and labs were received from [place]. Results of EGD show that he has Ordoñez's esophagus, type III hiatal hernia, gastritis, gastric polyp, and bile reflux. Radiologist read of the x-ray that was completed today shows "gaseous distention within a few jejunal bowel loops. Findings could be related to ileus, but partial small bowel obstruction cannot be excluded in the correct clinical context. No evidence of intra-abdominal free air. Cholecystectomy clips. The lung bases are clear." Hematology revealed hemoglobin low 11.7, BUN 2 9, creatinine 2.68, GFR 25. Abdomen Pain Score (Numeric/FACES): 3 - Related Data Allergies Allergy/AdvReac Type Severity Reaction Status Date / Time No Known Allergies Allergy Verified 12/10/20 18:09 Home Meds: Home Meds Omeprazole [Prilosec] 20 mg PO BID 10/02/14 [History] Levothyroxine 25 mcg PO DAILY #60 tablet 08/30/16 [Rx] Sucralfate [Carafate] 1 gm PO TID #21 tab 11/10/20 [Rx] Acetaminophen [Tylenol] 650 mg PO Q4H PRN 11/24/20 [History] GI Cocktail 30 mg PO Q8H PRN 11/24/20 [History] Krill/Om-3/DHA/EPA/Phospho/Ast [Krill Oil 1,000 mg Softgel] 1 cap PO DAILY 11/24/20 [History] lisinopriL [Lisinopril] 10 mg PO DAILY 11/24/20 [History] Warfarin [Coumadin] 2 mg PO DAILY #0 11/25/20 [Rx] Past Medical History HEENT History: Reports: Impaired Vision, Other (See Below) Other HEENT History: wear eyeglasses Cardiovascular History: Reports: Blood Clots/VTE/DVT, Cardiomyopathy, Heart Failure, Hypertension, [place] Other Cardiovascular History: cardiomegally. 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: Reports: Renal Disease PENSIONS RETIREMENT PLAN SPECIALIST History: Reports: None Musculoskeletal History: Reports: Fracture, Other (See Below) Other Musculoskeletal History: -1988, shoulder surgery Neurological History: Reports: Concussion Other Neuro History: Winter 2013 Psychiatric History: Reports: Addiction, Anxiety, Depression, Suicidal Ideation Other Psychiatric History: recovering alcoholic Endocrine/Metabolic History: Reports: Hypothyroidism, Obesity/BMI 30+ Other Endocrine/Metabolic History: pre diabetic Hematologic History: Reports: Anemia, Other (See Below) Other Hematologic History: plasma transfusions prior to GB surgery as was on Coumadin at that time. Immunologic History: Reports: None Oncologic (Cancer) History: Reports: None Dermatologic History: Reports: None - Infectious Disease History Infectious Disease History: Reports: Chicken Pox, Shingles - Past Surgical History HEENT Surgical History: Reports: Eye Surgery, Tonsillectomy Cardiovascular Surgical History: Reports: Other (See Below) Other Cardiovascular Surgeries/Procedures: angiogram. Respiratory Surgical History: Reports: None GI Surgical History: Reports: Cholecystectomy, Colonoscopy, EGD Male Surgical History: Reports: None Neurological Surgical History: Reports: None Musculoskeletal Surgical History: Reports: Other (See Below) Other Musculoskeletal Surgeries/Procedures:: left wrist ORIF, clavicle surgery Oncologic Surgical History: Reports: None Dermatological Surgical History: Reports: None Social & Family History - Family History Family Medical History: No Pertinent Family History - Tobacco Use Tobacco Use Status *Q: Never Tobacco User Second Hand Smoke Exposure: No - Caffeine Use Caffeine Use: Reports: None - Recreational Drug Use Recreational Drug Use: No - Living Situation & Occupation Living situation: Reports: Occupation: Employed ED ROS GENERAL - Review of Systems Review Of Systems: See Below Constitutional: Reports: No Symptoms. Denies: Fever, Chills, Weakness HEENT: Reports: No Symptoms Respiratory: Reports: No Symptoms Cardiovascular: Reports: No Symptoms Endocrine: Reports: No Symptoms GI/Abdominal: Reports: Abdominal Pain (Generalized, but worse in the epigastrium), Diarrhea. Denies: Black Stool, Bloody Stool, Nausea, Vomiting : Reports: No Symptoms Musculoskeletal: Reports: No Symptoms Skin: Reports: No Symptoms Neurological: Reports: No Symptoms Psychiatric: Reports: No Symptoms Hematologic/Lymphatic: Reports: No Symptoms Immunologic: Reports: No Symptoms ED EXAM, GI/ABD - Physical Exam Exam: See Below Exam Limited By: No Limitations General Appearance: Alert, WD/WN, No Apparent Distress Respiratory/Chest: No Respiratory Distress, Lungs Clear, Normal Breath Sounds, No Accessory Muscle Use, Chest Non-Tender Cardiovascular: Normal Peripheral Pulses, Regular Rate, Rhythm, No Edema, No Gallop, No JVD, No Murmur, No Rub GI/Abdominal Exam: Normal Bowel Sounds, Soft, No Organomegaly, No Distention, No Abnormal Bruit, No Mass, Pelvis Stable, Tender (Generalized abdominal tenderness, more pronounced in the epigastrium.) Neurological: Alert, Oriented, CN II-XII Intact, Normal Cognition, Normal Gait, Normal Reflexes, No Motor/Sensory Deficits Psychiatric: Normal Affect, Normal Mood Skin Exam: Warm, Dry, Intact, Normal Color, No Rash Course - Vital Signs Last Recorded V/S: Last Vital Signs Temp 97.9 F 12/10/20 18:06 Pulse 97 12/10/20 18:06 Resp 18 12/10/20 18:06 BP 135/86 12/10/20 18:06 Pulse Ox 96 12/10/20 18:06 - Orders/Labs/Meds Meds: Medications Discontinued Medications Generic Name Dose Route Start Last Admin Trade Name Delisa PRN Reason Stop Dose Admin Sodium Chloride 1,000 mls @ 999 mls/hr 12/10/20 18:37 12/10/20 18:57 Normal Saline IV 12/10/20 19:37 999 mls/hr NOW STA Administration - Re-Assessments/Exams Free Text/Narrative Re-Assessment/Exam: Patient is a 50-year-old male presenting to the emergency department from the [facility] with request of having CT scan of the abdomen and pelvis completed with contrast as well as IV fluids for reduced kidney function. Patient reports symptoms of abdominal pain for 3 weeks to a month. He had EGD done 2 weeks ago and was seeing Marilee Barbour NP in the clinic today for follow- up. Records were obtained from [place]. See [facility] for results. On exam, patient does have mild diffuse abdominal tenderness which is more pronounced in the epigastrium. Bowel sounds are active throughout. He reports he is having loose stools which she has been since the beginning of his abdominal pain 3 to 4 weeks ago and does pass gas when he has bowel movements. I have ordered CT scan of the abdomen pelvis with oral contrast only due to his decreased kidney function. We will give him 1 L of IV fluids. 12/10/20 21:17 CT scan of the abdomen pelvis impression as follows: 1. Dilated jejunum which is caused by a loop of bowel within the mid to lower right quadrant. Bowel loops shows evidence of wall thickening and surrounding inflammatory change. This small loop of abnormal bowel could be due to infection. 2. This area of narrowing does not obstruct the small bowel as contrast is seen distally. 3. Fatty infiltration within the liver. Moderate to large hiatal hernia. 4. Other incidental findings as noted above. Case was discussed with the general surgeon senior application programmer from [place], Dr. Meléndez. Given patient's normal white blood cells and fact that this has not progressed into severe infection over the last few weeks, he did not recommend that he be started on antibiotics this evening. He did recommend that patient contact Dr. Greene or Marilee Barbour NP tomorrow and request them to review the results and follow-up as needed. I have pushed the CT images to [place]. Discussed this with patient. He will call [place] tomorrow to visit with them. He will also call [place] tomorrow to set up a follow-up with his primary care provider, Dr. Sharma, to address his reduced kidney function. Discussed return precautions. Discharge instructions as documented. Departure - Departure Time of Disposition: 21:21 Disposition: Home, Self-Care 01 Condition: Good Clinical Impression: Abdominal pain Qualifiers: Abdominal location: unspecified location Qualified Code(s): R10.9 - Unspecified abdominal pain Chronic kidney disease Qualifiers: Chronic kidney disease stage: unspecified stage Qualified Code(s): N18.9 - Chronic kidney disease, unspecified - Discharge Information *PRESCRIPTION DRUG MONITORING PROGRAM REVIEWED*: No *COPY OF PRESCRIPTION DRUG MONITORING REPORT IN PATIENT ARACELIS: No Instructions: Abdominal Pain, Adult, [id number] Referrals: Naldo Sharma MD [Primary Care Provider] - Alannah Greene MD [Physician] - Marilee Barbour NP [Nurse Practitioner] - Forms: ED Department Discharge Additional Instructions: You were seen in the emergency department today after being sent here from the [facility] to have a CT scan completed on your abdomen pelvis as well as receive IV fluids. CT scan of your abdomen pelvis showed a small area of inflammation within your small bowel. Your case was discussed with the general surgeon on-call. He recommended that you call [facility] [place] tomorrow and request to have Dr. Greene's or Marilee Barbour NP reveiw the test results and follow-up with them as necessary. Recommend that you contact Dr. Sharma's office tomorrow as well to set up follow-up appointment with regards to your decreased kidney function. If you experience any new or worsening symptoms, please do not hesitate to return to the emergency department for reevaluation. Sepsis Event Note (ED) - Evaluation Sepsis Screening Result: No Definite Risk - Focused Exam Vital Signs: Vital Signs Temp Pulse Resp BP Pulse Ox 12/10/20 18:06 97.9 F 97 18 135/86 96
--- NOTE | 2020-12-10 20:58 | CT ---
CT abdomen and pelvis Technique: Multiple axial sections were obtained from above the dome of the diaphragm inferiorly through the pubic symphysis. Oral contrast was utilized. Intravenous contrast was not utilized. Reconstructed coronal and sagittal images were obtained. Comparison: Prior CT abdomen and pelvis exam of 11/10/20. Findings: Moderate to large hiatal hernia is present. Visualized lung bases show nothing acute. Liver shows diffuse fatty infiltration. Spleen size is within normal limits. Adrenal glands show no nodule. Surgical clips are noted from prior cholecystectomy. Pancreas shows no discrete abnormality. Kidneys show no abnormal calcifications. No hydronephrosis is seen. No ureteral dilatation or ureteral stone is seen. Abdominal aorta shows no aneurysm. No retroperitoneal adenopathy is seen. No pelvic mass or adenopathy is noted. Partial fat-containing right inguinal hernia is noted. Contrast is seen within a mildly dilated jejunum. There is a loop of bowel being seen within the right lower quadrant showing wall thickening and surrounding inflammatory change. Abnormal bowel is felt to cause partial obstruction within the distal jejunum. Other portions of the more distal bowel shows contrast but no dilatation. This finding is not appreciated on previous exam even in retrospect. Appendix is seen which is normal. Bone window settings were reviewed which show mild scattered degenerative change within the spine. Impression: 1. Dilated jejunum which is caused by a loop of bowel within the mid to lower right quadrant. Bowel loop shows evidence of wall thickening and surrounding inflammatory change. This small loop of abnormal bowel could be due to infection. 2. This area of narrowing does not obstruct the small bowel as contrast is seen distally. 3. Fatty infiltration within the liver. Moderate to large hiatal hernia. 4. Other incidental findings as noted above. Diagnostic code #3
== END 2020-12-10 21:30 | disposition home or self-care (01) ==
LOC: JD.ED 16:49
DX: I13.0 Hypertensive heart and chronic kidney disease with heart failure and stage 1 through stage 4 chronic kidney disease, or unspecified chronic kidney disease (principal); N18.9 Chronic kidney disease, unspecified; I50.9 Heart failure, unspecified; K21.9 Gastro-esophageal reflux disease without esophagitis; E03.9 Hypothyroidism, unspecified; E66.9 Obesity, unspecified; Z68.39 Body mass index [BMI] 39.0-39.9, adult; Z86.718 Personal history of other venous thrombosis and embolism
CPT/HCPCS: 74177; 99284; J7030

== ENCOUNTER 2020-12-17 18:00 | Emergency (ER) | payer BC ==
[2020-12-17 18:12] VITALS: BP 94/55; PULSE 102
[2020-12-17] MEDS ORDERED: Sodium Chloride 0.9% 10 ML Syringe FLUSH PRN ×2 (18:20→20:32)
[2020-12-17] MEDS ORDERED: Ondansetron 4 MG/2 ML SDV IVPUSH ONE (18:20)
[2020-12-17] MEDS ORDERED: HYDROmorphone 1 MG/ML Syringe IVPUSH ONE ×2 (18:23→22:02)
[2020-12-17] MEDS ORDERED: Sodium Chloride 0.9% 1,000 ML IV SCH (18:30)
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
[2020-12-17] MEDS ORDERED: Iopamidol 612 MG/ML 50 ML SDV IVPUSH ONE (20:32)
[2020-12-17] MEDS ORDERED: Iopamidol 612 MG/ML 100 ML Bottle IVPUSH ONE (20:32)
[2020-12-17] MEDS ORDERED: Diatrizoate Meglumine/Diatrizoate Sodium 37% 120 ML Bottle PO ONE (20:32)
[2020-12-17] MEDS ORDERED: Lactated Ringers 1,000 ML IV SCH (22:15)
--- NOTE | 2020-12-18 07:52 | CT ---
CT abdomen and pelvis Technique: Multiple axial sections were obtained from above the dome of the diaphragm inferiorly through the pubic symphysis. Intravenous contrast was utilized. Oral contrast is noted which remains within the stomach and proximal small bowel. Reconstructed coronal and sagittal images were obtained. Delayed images were also obtained through the bladder. Comparison: Prior CT abdomen and pelvis study of 12/10/20. Findings: Moderate to large hiatal hernia is seen. Visualized lung bases show nothing acute. Liver shows no focal abnormality. Surgical clips are seen from prior cholecystectomy. Spleen size is normal. Pancreas is within normal limits. Kidneys show symmetric contrast enhancement. No hydronephrosis or mass is seen. Abdominal aorta shows no aneurysm. No retroperitoneal adenopathy is seen. No pelvic mass or adenopathy is noted. Fat-containing right inguinal hernia is noted. Diffuse small bowel dilatation is seen with air and fluid. This involves mostly the jejunum. Transition point is within the pelvis with normal sized distal small bowel loops. Mild surrounding increased density is seen around the transition point. Transition point appears fairly similar to prior CT exam. Uncertain as to etiology with differential including prominent adhesion or other abnormality. Jejunal loops are dilated up to 4.6 cm. Appendix is seen which is normal in size. Delayed images show contrast within the distal ureters and within the bladder. Bone window settings were reviewed which show scattered degenerative change within the spine. No acute osseous abnormality is appreciated. Impression: 1. Dilated jejunal loops which are more prominent than on prior CT study. Transition point is seen within the pelvis and could be due to adhesion or other abnormality since it is persistent from prior exam. Findings are compatible with high-grade obstruction. Dilatation of the jejunum is seen up to 4.6 cm. 2. Hiatal hernia is noted. 3. Other incidental findings as noted above. Diagnostic code #3 I agree with preliminary report from [facility], finalized on 12/17/20, 10:08 PM CDT, code 1
--- NOTE | 2020-12-18 07:57 | CR ---
Chest: Frontal view of the chest was obtained. Comparison: Prior chest x-ray of 08/22/16. Prior resection of the distal right clavicle is seen which is stable. Heart size is felt to be slightly enlarged. Upper mediastinum is normal. Nasogastric tube is seen which shows coiling within the mid chest presumably within the esophagus. Distal end of the nasogastric tube is not optimally seen on the study. Slight atelectasis is seen within the left lung base. Lungs otherwise are clear. Impression: 1. Coiling of the nasogastric tube within the mid esophagus. 2. Slight left basilar atelectasis. Diagnostic code #3
== END 2020-12-17 23:15 ==
LOC: JD.ED 18:00
DX: K56.609 Unspecified intestinal obstruction, unspecified as to partial versus complete obstruction (principal); K21.9 Gastro-esophageal reflux disease without esophagitis; I13.0 Hypertensive heart and chronic kidney disease with heart failure and stage 1 through stage 4 chronic kidney disease, or unspecified chronic kidney disease; N18.9 Chronic kidney disease, unspecified; I50.32 Chronic diastolic (congestive) heart failure; E03.9 Hypothyroidism, unspecified; E66.9 Obesity, unspecified; D68.9 Coagulation defect, unspecified; I25.2 Old myocardial infarction; Z68.30 Body mass index [BMI] 30.0-30.9, adult; Z79.01 Long term (current) use of anticoagulants; Z79.899 Other long term (current) drug therapy; Z86.718 Personal history of other venous thrombosis and embolism; Z20.822 Contact with and (suspected) exposure to COVID-19
CPT/HCPCS: 36415; 43752; 74177; 80053; 83690; 85025; 85610; 87635; 96374; 96375; 96376; 99285; J1170; J2405; J7030; J7120; Q9963; Q9967; U0002

== ENCOUNTER 2021-09-08 18:50 | Emergency (ER) | payer BC ==
[2021-09-08 19:54] VITALS: BP 181/105; PULSE 77
[2021-09-08] MEDS ORDERED: Sodium Chloride 0.9% 10 ML Syringe FLUSH PRN (20:08)
[2021-09-08] MEDS ORDERED: Sodium Chloride 0.9% 1,000 ML IV ONE (20:30)
[2021-09-08 20:46] LABS: ESTIMATED GFR 73 mL/min (>60)
[2021-09-08 20:50] LABS: ACETAMINOPHEN 0 ug/mL (10-30)
[2021-09-08] MEDS ORDERED: Lactated Ringers 1,000 ML IV ONE (21:50)
[2021-09-09] MEDS ORDERED: Acetaminophen 325 MG Tab PO ONE (02:01)
== END 2021-09-09 02:30 | disposition home or self-care (01) ==
LOC: JD.ED 18:50
DX: F10.129 Alcohol abuse with intoxication, unspecified (principal); I11.0 Hypertensive heart disease with heart failure; I50.9 Heart failure, unspecified; K21.9 Gastro-esophageal reflux disease without esophagitis; E03.9 Hypothyroidism, unspecified; E66.9 Obesity, unspecified; Z68.45 Body mass index [BMI] 70 or greater, adult; Z79.899 Other long term (current) drug therapy; Z79.01 Long term (current) use of anticoagulants; Y90.1 Blood alcohol level of 20-39 mg/100 ml
CPT/HCPCS: 36415; 80053; 80143; 80179; 80306; 80307; 81003; 83735; 84443; 85025; 96360; 96361; 99284; A9270; J3490; J7030; J7120; 99283

== ENCOUNTER 2021-11-22 14:38 | Emergency (ER) | payer SELFPAY ==
[2021-11-22 16:20] VITALS: BP 144/90; PULSE 66
== END 2021-11-22 17:07 | disposition home or self-care (01) ==
LOC: JD.ED 14:38
DX: Z48.00 Encounter for change or removal of nonsurgical wound dressing (principal); I11.0 Hypertensive heart disease with heart failure; I50.9 Heart failure, unspecified; I25.2 Old myocardial infarction; E03.9 Hypothyroidism, unspecified; K21.9 Gastro-esophageal reflux disease without esophagitis; E66.9 Obesity, unspecified; Z68.30 Body mass index [BMI] 30.0-30.9, adult; Z79.01 Long term (current) use of anticoagulants; Z79.899 Other long term (current) drug therapy
CPT/HCPCS: 99282

== ENCOUNTER 2022-04-27 10:02 | Emergency (ER) | payer MEDICAID ==
[2022-04-27] MEDS ORDERED: Metoprolol Tartrate 50 MG Tab PO ONE (10:42)
[2022-04-27] MEDS ORDERED: Apixaban 5 MG Tab PO ONE (10:43)
[2022-04-27] MEDS ORDERED: LORazepam 1 MG Tab PO ONE (14:14)
[2022-04-27] MEDS ORDERED: FLUoxetine 20 MG Cap PO ONE (14:15)
[2022-04-27 14:51] VITALS: BP 125/87; PULSE 73
== END 2022-04-27 14:40 | disposition home or self-care (01) ==
LOC: JD.ED 10:02
DX: T33.99XA Superficial frostbite of other sites, initial encounter (principal); N28.9 Disorder of kidney and ureter, unspecified; I11.0 Hypertensive heart disease with heart failure; I50.9 Heart failure, unspecified; I25.2 Old myocardial infarction; E03.9 Hypothyroidism, unspecified; K21.9 Gastro-esophageal reflux disease without esophagitis; E66.9 Obesity, unspecified; Z68.39 Body mass index [BMI] 39.0-39.9, adult; Z79.899 Other long term (current) drug therapy
CPT/HCPCS: 36415; 80053; 80306; 80307; 85025; 93005; 99283; A9270; 93010; 99285